=== PATIENT | male | born 1940 | race Caucasian/White ===

== ENCOUNTER 2016-11-10 07:59 | Outpatient (CLI) ==
[2013-04-11 01:57] VITALS: TEMP 98.6
[2016-10-01 10:11] VITALS: BMI 27.8
== END 2016-11-10 08:00 | disposition home or self-care (01) ==
LOC: WOUND 07:59
PROVIDERS: ATTEND Nurse Practitioner Family
DX: L97.822 Non-pressure chronic ulcer of other part of left lower leg with fat layer exposed (principal); I87.332 Chronic venous hypertension (idiopathic) with ulcer and inflammation of left lower extremity; I10 Essential (primary) hypertension; E11.65 Type 2 diabetes mellitus with hyperglycemia; I50.9 Heart failure, unspecified; I87.2 Venous insufficiency (chronic) (peripheral)
CPT/HCPCS: 99211

== ENCOUNTER 2016-12-06 21:30 | Inpatient (IN) ==
[2016-12-06] MEDS ORDERED: DECADRON 4 MG/ML SDV IM STA (21:44)
[2016-12-06] MEDS ORDERED: DUONEB NEB STA (21:45)
[2016-12-06] MEDS ORDERED: XOPENEX 1.25 MG NEB STA (21:45)
[2016-12-06 21:59] LABS: BASOPHILS # (AUTO) 0.1 K/uL (0-0.2); BASOPHILS % (AUTO) 0.7 % (0.0-3.0); EOSINOPHILS # (AUTO) 0.3 K/ul (0.0-0.7); EOSINOPHILS % (AUTO) 3.8 % (0.0-7.0); HEMATOCRIT 45.3 % (42.0-52.0); HEMOGLOBIN 14.6 g/dl (14.0-18.0); IMMATURE GRANULOCYTE % (AUTO) 0.3 % (0.0-5.0); LYMPHOCYTES # (AUTO) 1.5 K/uL (0.60-3.4); LYMPHOCYTES % (AUTO) 21.9 (10.0-50.0); MEAN CORPUSCULAR HEMOGLOBIN 28.8 pg (27.0-31.0); MEAN CORPUSCULAR HGB CONC 32.2 (31.8-35.4); MEAN CORPUSCULAR VOLUME 89.3 fl (80.0-94.0); MONOCYTES # (AUTO) 0.6 K/uL (0.4-2.0); MONOCYTES % (AUTO) 8.6 (0-10); NEUTROPHILS # (AUTO) 4.4 K/ul (2.0-6.9); NEUTROPHILS % (AUTO) 64.7; PLATELET COUNT 224 10^3/uL (140-440); RED BLOOD COUNT 5.07 10^6/ul (4.70-6.10); WHITE BLOOD COUNT 6.85 K/ul (4.2-10.2)
[2016-12-06 22:20] LABS: ABG BASE EXCESS 11 (-2.0-2.0); ABG PCO2 60.1 mmHg (35-45)
[2016-12-06 22:21] LABS: ABG HCO3 36.4 (22.0-26.0); ABG TCO2 38 (22.0-28.0)
[2016-12-06] MEDS ORDERED: ALBUTEROL 0.042% NEB NEB STA (22:29)
[2016-12-06 22:44] LABS: ALBUMIN 3.6 g/dL (3.4-5.0); ALBUMIN/GLOBULIN RATIO 1.29; BILIRUBIN,TOTAL 0.46 mg/dL (0.00-1.20); BUN/CREATININE RATIO 11.36; CALCIUM 8.7 mg/dL (8.2-10.2); CREATININE 1.32 mg/dL (0.60-1.10); TOTAL PROTEIN 6.4 g/dL (5.8-8.1)
--- NOTE | 2016-12-06 22:44 | CT ---
EXAM: CT of the chest without contrast. HISTORY: Shortness of breath. Dyspnea. PROCEDURE: Contiguous axial CT images of the chest without contrast with coronal and sagittal refor mats. FINDINGS: The heart is enlarged. The thoracic aorta is within normal limits in diameter. There ar e calcified mediastinal and hilar lymph nodes. There is consolidation in the right lower lobe. Ther e is a multi lead automatic implantable cardiac defibrillator. There are degenerative changes in th e spine. Impression: Right lower lobe consolidation consistent with pneumonia. Cardiomegaly.
--- NOTE | 2016-12-06 23:37 | ED.PDOC ---
General ED Provider: Dr. KIARA HOWE-ER Chief Complaint: Respiratory Complaint Stated Complaint: feliz been cleaning out the grain bins today--im coughing and sob Time Seen by Physician: 21:35 Mode of Arrival: Wheelchair Information Source: Patient Exam Limitations: No limitations Primary Care Provider: FUNMI CISSE Nursing and Triage Documentation Reviewed and Agree: Yes Respiratory Complaint Exam - Shortness of Air Complaint/Exam Onset/Duration: several hours Symptoms Are: Still present Timing: Constant Initial Severity: Mild Current Severity: Mild Character: Reports: Dyspnea at rest, Dyspnea on exertion Aggravating: Reports: Deep breaths Alleviating: Reports: Bronchodilators Associated Signs and Symptoms: Reports: Cough, Wheezing, Labored breathing. Denies: Chest pain with cough, Chest pain, Fever, Chills, Diaphoresis, Nasal congestion, Dizziness, Calf pain, Calf swelling, Edema, Rapid breathing, Decreased intake Related History: Reports: Similar episode History of Healthcare-Acquired Pneumonia: No Cardiac Risk Factors: Reports: Diabetes, Hypertension Pseudomonas Risk Factors: Reports: Chronic Lung Disease Tuberculosis Risk Factors: Reports: Chronic Resp. Faliure Home Oxygen Use: Yes Recent Stress Test: No Recent Echo/LV Function: No Respiratory Distress: Mild Stridor Present: No Tracheal Deviation: No Subcutaneous Emphysema: No Accessory Muscle Use: No Retractions: Not Present Diminished Breath Sounds: Yes Prolonged Expiratory Phase: No Unable to Speak Full Sentences: No Fatigue: Yes Leg Swelling: No Ranjith's Sign Present: No Grunting Respirations: No Kussmaul Respirations: No Differential Diagnoses: COPD Exacerbation Quality Indicator For Non-Traumatic Chest Pain/Syncope: EKG Performed Review of Systems - Review Of Systems Constitutional: Reports: No symptoms Eyes: Reports: No symptoms Ears, Nose, Mouth, Throat: Reports: No symptoms Respiratory: Reports: Cough, Short of air Cardiac: Reports: No symptoms GI: Reports: No symptoms : Reports: No symptoms Musculoskeletal: Reports: No symptoms Skin: Reports: No symptoms Neurological: Reports: No symptoms Endocrine: Reports: No symptoms Hematologic/Lymphatic: Reports: No symptoms All Other Systems: Reviewed and Negative Past Medical History - Past Medical History Previously Healthy: Yes Endocrine: Reports: DM 1 (MEDS), Hypothyroid, Other (GOUT-MEDS) Cardiovascular: Reports: CAD, Hypertension, CHF (MEDS), A-Fib Respiratory: Reports: COPD (MEDS) Hematological: Reports: None Gastrointestinal: Reports: None Genitourinary: Reports: Other (PROSTATISM) Neuro/Psych: Reports: Anxiety Musculoskeletal: Reports: None Cancer: Reports: None Other Pertinent Past Medical History: HERNIA,BACK,NECK,STOMACH defib htn dm copd cad - Surgical History General Surgical History: Reports: Pacemaker (DEFIB), Orthopedic (NECK), Back Surgery, Other (hernia repair,STOMACH SX AAA, prostate ercp scheduled for reevaluation), Unknown (stomach surgery) - Family History Family History: Reports: None - Social History Smoking Status: Current every day smoker, Heavy tobacco smoker Hx Substance Use: No Alcohol Screening: None Lives: With family - Immunizations Tetanus Shot up to Date: Yes Physical Exam - Physical Exam Appearance: Well-appearing, No pain distress, Well-nourished Eyes: SHLOMO ENT: Ears normal, Nose normal, Oropharynx normal Neck: Supple Respiratory: Rhonchi, Wheezes Cardiovascular: RRR, Pulses normal, No rub, No murmur GI/: Soft, Nontender, No masses, Bowel sounds normal, No Organomegaly Musculoskeletal: Normal strength, ROM intact, No edema, No calf tenderness Skin: Warm, Dry, Normal color Neurological: Sensation intact, Motor intact, Reflexes intact, Cranial nerves intact, Alert, Oriented Psychiatric: Affect appropriate Interpretation - Radiology Interpretation Radiology Interpretation By: Radiologist Radiology Results: Positive Exam Interpreted: CT Scan - EKG Interpretation Time of EKG #1: 23:37 Rate: Normal Rhythm: Sinus Ectopy: None [place]: NL ST Segment: Normal Interpretation: nsr Re-Evaluation - Re-Evaluation Time of Re-Evaluation: 23:37 Status: Improved Vital Signs Stable: Yes Pain Level: 0 Appearance: NAD Lungs: Clear Skin: Warm and Dry Neuro: Alert and Oriented X3 CV: RRR Critical Care Note - Critical Care Note Total Time (mins): 0 Course - Course Hematology/Chemistry: 12/06/16 21:50 12/06/16 21:50 Orders, Labs, Meds: Lab Review 12/06/16 12/06/16 21:43 21:50 WBC 6.85 RBC 5.07 Hgb 14.6 Hct 45.3 MCV 89.3 MCH 28.8 MCHC 32.2 RDW Coeff of Christine 13.6 Plt Count 224 Immature Gran % (Auto) 0.3 Neut % (Auto) 64.7 Lymph % (Auto) 21.9 [place] % (Auto) 8.6 Eos % (Auto) 3.8 Baso % (Auto) 0.7 Immature Gran # (Auto) 0.0 Neut # 4.4 Lymph # 1.5 [place] # 0.6 Eos # 0.3 Baso # 0.1 D-Dimer 0.67 Puncture Site Lb O2 Saturation 89.0 L ABG pH 7.390 ABG pCO2 60.1 H ABG pO2 60.0 L ABG HCO3 36.4 H ABG Total CO2 38 H ABG Base Excess 11 H Arley Test + O2 Delivery Device Nc Oxygen Liter Flow 2.50 FiO2 % 30.0 Sodium 143 Potassium 4.0 Chloride 101 Carbon Dioxide 34 H Anion Gap 12.0 BUN 15 Creatinine 1.32 H Estimated GFR (MDRD) 53.00 BUN/Creatinine Ratio 11.36 Glucose 258 H Calcium 8.7 Total Bilirubin 0.46 AST 14 L ALT 14 Alkaline Phosphatase 84 Total Creatine Kinase 112 Troponin I < 0.0100 B-Natriuretic Peptide < 10 Total Protein 6.4 Albumin 3.6 Globulin 2.8 Albumin/Globulin Ratio 1.29 Digoxin 2.17 H* Orders Category Date Time Status ABG DRAW REQUEST Stat CARDIO 12/06/16 21:44 Completed EKG-(ED ONLY) Stat CARDIO 12/06/16 21:43 Completed NEBULIZER TREATMENT Stat CARDIO 12/06/16 21:45 Completed NEBULIZER TREATMENT Stat CARDIO 12/06/16 22:30 Completed ABG Stat LAB 12/06/16 21:43 Completed BNP [B-TYPE NATRIURETIC PEPTIDE] Stat LAB 12/06/16 21:50 Completed CBC W/ AUTO DIFF Stat LAB 12/06/16 21:50 Completed COMPREHENSIVE METABOLIC PANEL Stat LAB 12/06/16 21:50 Completed CREATINE KINASE Stat LAB 12/06/16 21:50 Completed D-DIMER Stat LAB 12/06/16 21:50 Completed DIGOXIN Stat LAB 12/06/16 21:50 Completed TROPONIN I Stat LAB 12/06/16 21:50 Completed Albuterol Sulfate 0.042% Neb [Albuterol 0.042% Neb] MEDS 12/06/16 22:29 Discontinued 1 vial NEB ONCE STA Dexamethasone 4 mg/ml Inj [Decadron 4 mg/ml Sdv] MEDS 12/06/16 21:44 Discontinued 8 mg IM ONCE STA Ipratropium/Albuterol Neb [Duoneb] MEDS 12/06/16 21:45 Discontinued 1 vial NEB ONCE STA Levalbuterol HCl [Xopenex 1.25 mg] MEDS 12/06/16 21:45 Discontinued 1 vial NEB ONCE STA CT CHEST W/O CONTRAST Stat RADS 12/06/16 21:45 Completed Medications Discontinued Medications Generic Name Dose Route Start Last Admin Trade Name Carlee PRN Reason Stop Dose Admin Albuterol Sulfate 1 vial 12/06/16 22:29 12/06/16 22:50 Albuterol 0.042% Neb [facility] [place] 12/06/16 22:30 1 vial ONCE STA Administration Albuterol/Ipratropium 1 vial 12/06/16 21:45 12/06/16 22:03 Duoneb NEB 12/06/16 21:46 1 vial ONCE STA Administration Dexamethasone Sodium Phosphate 8 mg 12/06/16 21:44 12/06/16 22:05 Decadron 4 Mg/Ml Sdv IM 12/06/16 21:45 8 mg ONCE STA Administration Levalbuterol HCl 1 vial 12/06/16 21:45 12/06/16 22:13 Xopenex 1.25 Mg NEB 12/06/16 21:46 1 vial ONCE STA Administration Vital Signs: Temp Pulse Resp BP Pulse Ox 12/06/16 21:31 98.3 F 64 24 156/81 H 85 L Departure - Departure Time of Disposition: 23:37 Disposition: HOME SELF-CARE Discharge Problem: Pneumonia Qualifiers: Pneumonia type: due to unspecified organism Laterality: right Lung location: lower lobe of lung Qualifier Code: (J18.9) Pneumonia, unspecified organism Instructions: Community Acquired Pneumonia (ED) Condition: Good Pt referred to PMD for follow-up: Yes Allergies/Adverse Reactions: Allergies Penicillins Adverse Reaction (Intermediate, Verified 10/01/16 10:05) UNKNOWN Home Medications: Ambulatory Orders Allopurinol [Zyloprim] 300 mg PO DAILY 04/11/13 Amiodarone HCl [Cordarone] 200 mg PO DAILY 04/11/13 Aspirin [Aspirin Chewable] 81 mg PO DAILY 04/11/13 Carvedilol [Coreg] 6.25 mg PO BID 04/11/13 Digoxin [Lanoxin] 125 mcg PO DAILY 04/11/13 Furosemide [Lasix Tab] 20 mg PO BID 04/11/13 Gabapentin [Neurontin] 300 mg PO TID 04/11/13 Insulin Glargine,Hum.rec.anlog [Lantus] 15 units PO BEDTIME 04/11/13 Insulin Regular, Human [Humulin R] 1 units SUBCUT QID 04/11/13 Nitroglycerin [Nitrostat] 0.4 mg SL PRN PRN 04/11/13 Potassium Chloride [K-Dur] 20 meq PO DAILY 04/11/13 Albuterol Sulfate [Proair Hfa] 2 inh PO Q4-6H PRN 08/11/13 Clonidine HCl 0.1 mg PO BEDTIME 04/28/15 Levothyroxine Sodium [Synthroid] 75 mcg PO QDAC 04/28/15 Glipizide 5 mg PO BID 02/05/16 Lisinopril 5 mg PO DAILY 03/09/16 Mirabegron [Myrbetriq] 25 mg PO DAILY 03/09/16 Albuterol Sulfate 0.083% Neb [Albuterol 0.083% Neb] 1 vial NEB RTQ6H PRN Albuterol Sulfate 2.5 mg IH ONCE PRN 11/18/16 Albuterol Sulfate [Proair Hfa] 8.5 gm IH PRN 11/18/16 Allopurinol 300 mg PO DAILY 11/18/16 Amiodarone HCl 200 mg PO DAILY 11/18/16 Aspirin [Aspir 81] 81 mg PO DAILY 11/18/16 Carvedilol 6.25 mg PO BID 11/18/16 Clonidine HCl [Catapres] 0.1 mg PO BEDTIME PRN 11/18/16 Digoxin 125 mcg PO DAILY 11/18/16 Furosemide [Lasix] 20 mg PO BID 11/18/16 Gabapentin 300 mg PO DAILY 11/18/16 Glipizide 5 mg PO BID 11/18/16 Insulin Glargine,Hum.rec.anlog [Lantus] 100 unit SQ DIRECTED vial 11/18/16 Insulin Regular, Human [Humulin R] 100 unit IJ PRN vial 11/18/16 Levothyroxine Sodium [Synthroid] 75 mcg PO DAILY 11/18/16 Lisinopril 5 mg PO DAILY 11/18/16 Mirabegron [Myrbetriq] 25 mg PO DAILY 11/18/16 Nitroglycerin 0.3 mg SL PRN 11/18/16 Potassium Chloride 20 meq PO DAILY 11/18/16 Pramipexole Di-HCl [Pramipexole Er] 0.75 mg PO DAILY 11/18/16 Disposition Discussed With: Patient, Family
[2016-12-06] MEDS ORDERED: LEVAQUIN 250 MG in PREMIX 50 ML D5W 1 BAG IV SCH (23:45)
[2016-12-07 00:56] VITALS: BMI 27.6
[2016-12-07] MEDS ORDERED: LEVAQUIN 50 ML IV ONE (01:09)
[2016-12-07] MEDS: SODIUM CHLORIDE 1,000 ML IV SCH ×2 (01:57→15:25)
[2016-12-07] MEDS: DUONEB NEB SCH ×6 (02:20→22:35)
[2016-12-07 04:55] LABS: BASOPHILS % (AUTO) 0.4 % (0.0-3.0); HEMATOCRIT 46.8 % (42.0-52.0); HEMOGLOBIN 15.1 g/dl (14.0-18.0); IMMATURE GRANULOCYTE % (AUTO) 0.9 % (0.0-5.0); LYMPHOCYTES # (AUTO) 0.4 K/uL (0.60-3.4); LYMPHOCYTES % (AUTO) 7.4 (10.0-50.0); MEAN CORPUSCULAR HEMOGLOBIN 29.2 pg (27.0-31.0); MEAN CORPUSCULAR HGB CONC 32.3 (31.8-35.4); MEAN CORPUSCULAR VOLUME 90.5 fl (80.0-94.0); MONOCYTES # (AUTO) 0.1 K/uL (0.4-2.0); MONOCYTES % (AUTO) 1.1 (0-10); NEUTROPHILS # (AUTO) 4.9 K/ul (2.0-6.9); NEUTROPHILS % (AUTO) 90.2; PLATELET COUNT 212 10^3/uL (140-440); RED BLOOD COUNT 5.17 10^6/ul (4.70-6.10); WHITE BLOOD COUNT 5.42 K/ul (4.2-10.2)
[2016-12-07 05:28] LABS: ALBUMIN 3.5 g/dL (3.4-5.0); ALBUMIN/GLOBULIN RATIO 1.13; ANION GAP 12.3; BILIRUBIN,TOTAL 0.44 mg/dL (0.00-1.20); BUN/CREATININE RATIO 11.36; CALCIUM 8.7 mg/dL (8.2-10.2); CREATININE 1.32 mg/dL (0.60-1.10); POTASSIUM 4.3 mmol/L (3.5-5.1); TOTAL PROTEIN 6.6 g/dL (5.8-8.1)
[2016-12-07] MEDS: HUMULIN R SUBCUT PRN ×4 (05:45→20:35)
[2016-12-07] MEDS ORDERED: NITROSTAT SL PRN (06:05)
[2016-12-07] MEDS ORDERED: CATAPRES PO PRN (06:05)
[2016-12-07] MEDS ORDERED: HUMULIN R SUBCUT SCH (06:15)
[2016-12-07] MEDS: SYNTHROID PO SCH (06:23)
[2016-12-07] MEDS ORDERED: HUMULIN R SUBCUT PRN (07:44)
[2016-12-07] MEDS: SOLU-MEDROL 40 MG IVP SCH ×2 (08:46→20:14)
[2016-12-07] MEDS: ASPIRIN CHEWABLE PO SCH (08:47)
[2016-12-07] MEDS: CORDARONE PO SCH (08:47)
[2016-12-07] MEDS: GLUCOTROL PO SCH ×2 (08:48→18:28)
[2016-12-07] MEDS: COREG PO SCH ×2 (08:48→20:12)
[2016-12-07] MEDS: K-DUR PO SCH (08:49)
[2016-12-07] MEDS: LOVENOX SUBCUT SCH (08:49)
[2016-12-07] MEDS: LASIX TAB PO SCH ×2 (08:49→18:28)
[2016-12-07] MEDS: MIRAPEX PO SCH (08:50)
[2016-12-07] MEDS: MYRBETRIQ PO SCH (08:50)
[2016-12-07] MEDS: NEURONTIN PO SCH ×3 (08:52→20:12)
[2016-12-07] MEDS: ZYLOPRIM PO SCH (08:53)
[2016-12-07] MEDS: ZESTRIL PO SCH (08:53)
[2016-12-07] MEDS ORDERED: PRAMIPEXOLE DI HCL 0.75 MG PO SCH (09:00)
[2016-12-07 15:10] LABS: TROPONIN I 0.04 ng/ml (0.0000-0.4000)
[2016-12-07 15:11] LABS: DIGOXIN 0.69 ng/mL (1.00-2.00)
[2016-12-07] MEDS: LANTUS SUBCUT SCH (20:16)
[2016-12-07] MEDS: LEVAQUIN 250 MG in PREMIX 50 ML D5W 1 BAG IV SCH (20:18)
[2016-12-08] MEDS: DUONEB NEB SCH ×6 (02:13→21:22)
[2016-12-08 04:54] LABS: BASOPHILS % (AUTO) 0.2 % (0.0-3.0); HEMATOCRIT 43.9 % (42.0-52.0); HEMOGLOBIN 14.2 g/dl (14.0-18.0); IMMATURE GRANULOCYTE % (AUTO) 0.8 % (0.0-5.0); LYMPHOCYTES # (AUTO) 0.7 K/uL (0.60-3.4); LYMPHOCYTES % (AUTO) 5.7 (10.0-50.0); MEAN CORPUSCULAR HEMOGLOBIN 28.9 pg (27.0-31.0); MEAN CORPUSCULAR HGB CONC 32.3 (31.8-35.4); MEAN CORPUSCULAR VOLUME 89.2 fl (80.0-94.0); MONOCYTES # (AUTO) 0.3 K/uL (0.4-2.0); MONOCYTES % (AUTO) 2.1 (0-10); NEUTROPHILS # (AUTO) 11.9 K/ul (2.0-6.9); NEUTROPHILS % (AUTO) 91.2; PLATELET COUNT 235 10^3/uL (140-440); RED BLOOD COUNT 4.92 10^6/ul (4.70-6.10); WHITE BLOOD COUNT 13.08 K/ul (4.2-10.2)
[2016-12-08 05:21] LABS: ALBUMIN 3.2 g/dL (3.4-5.0); ALBUMIN/GLOBULIN RATIO 1.07; ANION GAP 11.5; BILIRUBIN,TOTAL 0.41 mg/dL (0.00-1.20); BUN/CREATININE RATIO 20.16; CALCIUM 8.8 mg/dL (8.2-10.2); CREATININE 1.19 mg/dL (0.60-1.10); DIGOXIN 0.73 ng/mL (1.00-2.00); POTASSIUM 4.5 mmol/L (3.5-5.1); TOTAL PROTEIN 6.2 g/dL (5.8-8.1)
[2016-12-08] MEDS: LASIX TAB PO SCH ×2 (05:34→17:35)
[2016-12-08] MEDS: SYNTHROID PO SCH (05:35)
[2016-12-08] MEDS: GLUCOTROL PO SCH ×2 (05:35→17:35)
[2016-12-08] MEDS: HUMULIN R SUBCUT PRN ×4 (05:43→20:44)
[2016-12-08] MEDS: ASPIRIN CHEWABLE PO SCH (08:38)
[2016-12-08] MEDS: MYRBETRIQ PO SCH (08:38)
[2016-12-08] MEDS: ZESTRIL PO SCH (08:39)
[2016-12-08] MEDS: NEURONTIN PO SCH ×3 (08:39→20:43)
[2016-12-08] MEDS: COREG PO SCH ×2 (08:39→17:35)
[2016-12-08] MEDS: K-DUR PO SCH (08:39)
[2016-12-08] MEDS: ZYLOPRIM PO SCH (08:39)
[2016-12-08] MEDS: CORDARONE PO SCH (08:39)
[2016-12-08] MEDS: MIRAPEX PO SCH (08:39)
[2016-12-08] MEDS: LOVENOX SUBCUT SCH (08:40)
[2016-12-08] MEDS: SOLU-MEDROL 40 MG IVP SCH (09:08)
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
[2016-12-08] MEDS: LEVAQUIN 250 MG in PREMIX 50 ML D5W 1 BAG IV SCH (20:42)
[2016-12-08] MEDS: LANTUS SUBCUT SCH (20:43)
[2016-12-09] MEDS: DUONEB NEB SCH ×3 (01:18→10:02)
[2016-12-09] MEDS: LASIX TAB PO SCH (05:34)
[2016-12-09] MEDS: SYNTHROID PO SCH (05:34)
[2016-12-09 06:46] LABS: BASOPHILS % (AUTO) 0.2 % (0.0-3.0); HEMATOCRIT 43.9 % (42.0-52.0); HEMOGLOBIN 14.5 g/dl (14.0-18.0); IMMATURE GRANULOCYTE % (AUTO) 0.8 % (0.0-5.0); LYMPHOCYTES # (AUTO) 1.3 K/uL (0.60-3.4); LYMPHOCYTES % (AUTO) 9.8 (10.0-50.0); MEAN CORPUSCULAR VOLUME 87.8 fl (80.0-94.0); MONOCYTES # (AUTO) 0.6 K/uL (0.4-2.0); MONOCYTES % (AUTO) 4.9 (0-10); NEUTROPHILS % (AUTO) 84.3; PLATELET COUNT 230 10^3/uL (140-440); WHITE BLOOD COUNT 13.05 K/ul (4.2-10.2)
[2016-12-09] MEDS: HUMULIN R SUBCUT PRN ×2 (06:46→11:40)
[2016-12-09 07:14] LABS: ALBUMIN 3.3 g/dL (3.4-5.0); ALBUMIN/GLOBULIN RATIO 1.22; ANION GAP 10.9; BILIRUBIN,TOTAL 0.5 mg/dL (0.00-1.20); BUN/CREATININE RATIO 23.96; CREATININE 1.21 mg/dL (0.60-1.10); POTASSIUM 3.9 mmol/L (3.5-5.1)
[2016-12-09] MEDS ORDERED: PREDNISONE PO SCH (08:00)
[2016-12-09] MEDS: LOVENOX SUBCUT SCH (08:23)
[2016-12-09] MEDS: ZESTRIL PO SCH (08:24)
[2016-12-09] MEDS: MIRAPEX PO SCH (08:24)
[2016-12-09] MEDS: COREG PO SCH (08:24)
[2016-12-09] MEDS: ASPIRIN CHEWABLE PO SCH (08:24)
[2016-12-09] MEDS: CORDARONE PO SCH (08:24)
[2016-12-09] MEDS: GLUCOTROL PO SCH (08:24)
[2016-12-09] MEDS: ZYLOPRIM PO SCH (08:24)
[2016-12-09] MEDS: MYRBETRIQ PO SCH (08:24)
[2016-12-09] MEDS: NEURONTIN PO SCH ×2 (08:25→16:43)
[2016-12-09] MEDS: K-DUR PO SCH (08:25)
[2016-12-09 10:11] VITALS: BP 145/84; TEMP 97.4
--- NOTE | 2016-12-09 11:09 | PN ---
DATE OF VISIT: 12/08/16 SUBJECTIVE: Mr. Leonard has chronic systolic and diastolic congestive heart failure and always potential for acute exacerbation, COPD and the same. He was exposed to grain bin dust; he became more short of breath than his usual baseline (he also has chronic respiratory failure on oxygen for around the clock use). He presented to the ER where on CT was found to have an infiltrate in the right lung. He was admitted for IV antibiotics, nebulized bronchodilators, IV steroids (which exacerbates his sugar). When I saw him the first day, yesterday , he was feeling a lot better. He continues to improve with less cough. No shortness of breath or wheeze. He continues to have a good appetite, slept well last night and is expecting to go home tomorrow. He denies chest pain or leg edema. OBJECTIVE: V/S: Temperature 98.1, pulse 68, BP 149/76; previously 162/75, respirations 20, 02 sat 93% on 3L; all of these patterns have been in this range. GENERAL: No obvious distress. CHEST: Diminished but no active wheeze or dullness. CARDIOVASCULAR: S1, S2 distant without murmur and no peripheral edema. LABS/X-RAYS: White count today 13, up from 5; with steroids. His chemistries show stable elevated bicarb of 32, BUN 24 compared to 15, creatinine 1.19 compared to 1.32 and GFR is actually improved from 59 to 53. ASSESSMENT: # RIGHT LOWER LOBE PNEUMONIA - COMMUNITY EXPOSED # SHORTNESS OF BREATH, A COMBINATION OF ALL PULMONARY AND CARDIAC ISSUES # CHRONIC RESPIRATORY FAILURE WITH POSSIBLE ACUTE WORSENING # COPD # COPD EXACERBATION # CHF - DIASTOLIC AND SYSTOLIC CHRONIC WITH POSSIBLE MILD ACUTE EXACERBATION # STEROID INDUCED HYPERGLYCEMIA # TYPE 2 DIABETES - GENERALLY NOT CONTROLLED PLANS: 1. Wean from IV to p.o. steroid. Continue other meds for now. 2. Labs reviewed - note above - continue daily. 3. Watch closely to see if he tolerates this wean. 4. He wants to go home tomorrow - discharge planning at this point would be to his home considering however he does live alone. [facility]
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
== END 2016-12-09 15:45 | disposition home or self-care (01) | DRG 193 ==
LOC: ED 21:30 → MEDSURG B 23:39
PROVIDERS: ADMIT Family Medicine; ATTEND Family Medicine
DX: J18.9 Pneumonia, unspecified organism (principal); J96.20 Acute and chronic respiratory failure, unspecified whether with hypoxia or hypercapnia; I50.42 Chronic combined systolic (congestive) and diastolic (congestive) heart failure; I51.7 Cardiomegaly; I10 Essential (primary) hypertension; I50.9 Heart failure, unspecified; J44.9 Chronic obstructive pulmonary disease, unspecified; E11.65 Type 2 diabetes mellitus with hyperglycemia; R79.89 Other specified abnormal findings of blood chemistry; F17.210 Nicotine dependence, cigarettes, uncomplicated; E09.65 Drug or chemical induced diabetes mellitus with hyperglycemia; T38.0X5A Adverse effect of glucocorticoids and synthetic analogues, initial encounter; Y92.239 Unspecified place in hospital as the place of occurrence of the external cause; Z95.810 Presence of automatic (implantable) cardiac defibrillator; Z79.4 Long term (current) use of insulin; Z79.899 Other long term (current) drug therapy; Z57.2 Occupational exposure to dust
CPT/HCPCS: 36415; 80053; 80162; 82550; 82803; 82962; 83880; 84484; 85025; 85379; 87040; 93005; 93010; 94640; 94761; 96372; 99284

== ENCOUNTER 2017-03-21 00:57 | Emergency (ER) ==
[2017-03-21] MEDS ORDERED: ZOFRAN 4 MG/2 ML IM STA (00:58)
[2017-03-21] MEDS ORDERED: DECADRON 4 MG/ML SDV IM STA (00:58)
[2017-03-21] MEDS ORDERED: MORPHINE 2 MG/ML SYRINGE IM STA (00:58)
[2017-03-21 01:19] VITALS: TEMP 98.8; BMI 28.5
--- NOTE | 2017-03-21 02:00 | DI ---
EXAM: Right knee four views HISTORY: Pain COMPARISON: None. FINDINGS: There is no evidence of fracture or joint effusion. The joint spaces are well maintained . The surrounding soft tissues are unremarkable. IMPRESSION: No acute findings.
--- NOTE | 2017-03-21 04:59 | ED.PDOC ---
General ED Provider: Dr. KIARA HOWE-ER Chief Complaint: Knee Pain/Injury Stated Complaint: i got my other knee injected but now it hurts beghind the other knee Time Seen by Physician: 01:10 Mode of Arrival: Wheelchair Information Source: Patient Exam Limitations: No limitations Primary Care Provider: FUNMI IBARRA Nursing and Triage Documentation Reviewed and Agree: Yes Musculoskeletal Complaint Exam - Lower Extremity Complaint/Exam Location of Pain: Reports: Right, Leg Mechanism of Injury: Reports: No known trauma Onset/Duration: several hours Symptoms Are: Still present Onset of Pain: Reports: Hours Initial Severity: Mild Current Severity: Mild Location: Denies: Discrete (posterior right knee) Character: Reports: Dull, Aching, Stiffness Alleviating: Reports: None Aggravating: Reports: Movement, Weight bearing, Prolonged standing Able to Bear Weight: Yes Associated Signs and Symptoms: Denies: Swelling, Redness, Bruising, Fever, Weakness, Numbness, Tingling Septic Arthritis Risk Factors: Reports: None Lower Extremity Findings: Present: Tenderness, Limited range of motion NV Bundle Intact Distal to Injury: Yes Compartment Syndrome Risk Factors: Present: Pain. Absent: Paralysis, Pallor, Pulselessness, Paresthesias Ranjith's Sign Present: No Differential Diagnoses: DVT, Strain, Sprain Review of Systems - Review Of Systems Constitutional: Reports: No symptoms Eyes: Reports: No symptoms Ears, Nose, Mouth, Throat: Reports: No symptoms Respiratory: Reports: No symptoms Cardiac: Reports: No symptoms GI: Reports: No symptoms : Reports: No symptoms Musculoskeletal: Reports: Joint pain, Muscle pain Skin: Reports: No symptoms Neurological: Reports: No symptoms Endocrine: Reports: No symptoms Hematologic/Lymphatic: Reports: No symptoms All Other Systems: Reviewed and Negative Past Medical History - Past Medical History Previously Healthy: Yes Endocrine: Reports: DM 1 (MEDS), Hypothyroid, Other (GOUT-MEDS) Cardiovascular: Reports: CAD, Hypertension, CHF (MEDS), A-Fib Respiratory: Reports: COPD (MEDS) Hematological: Reports: None Gastrointestinal: Reports: None Genitourinary: Reports: Other (PROSTATISM) Neuro/Psych: Reports: Anxiety Musculoskeletal: Reports: None Cancer: Reports: None Other Pertinent Past Medical History: HERNIA,BACK,NECK,STOMACH defib htn dm copd cad - Surgical History General Surgical History: Reports: Pacemaker (DEFIB), Orthopedic (NECK), Back Surgery, Other (hernia repair,STOMACH SX AAA, prostate ercp scheduled for reevaluation), Unknown (stomach surgery) - Family History Family History: Reports: None - Social History Smoking Status: Current every day smoker, Heavy tobacco smoker Hx Substance Use: No Alcohol Screening: Occasionally Lives: With family - Immunizations Tetanus Shot up to Date: (UNKNOWN) Physical Exam - Physical Exam Appearance: Well-appearing, No pain distress, Well-nourished Pain Distress: Mild Eyes: SHLOMO, EOMI, Conjunctiva clear ENT: Ears normal, Nose normal, Oropharynx normal Neck: Supple Respiratory: Airway patent, Breath sounds clear, Breath sounds equal, Respirations nonlabored Cardiovascular: RRR, Pulses normal, No rub, No murmur GI/: Soft, Nontender, No masses, Bowel sounds normal, No Organomegaly Musculoskeletal: Limited ROM Skin: Warm, Dry, Normal color Neurological: Sensation intact, Motor intact, Reflexes intact, Cranial nerves intact, Alert, Oriented Psychiatric: Affect appropriate Interpretation - Radiology Interpretation Radiology Interpretation By: Radiologist Radiology Results: Negative Critical Care Note - Critical Care Note Total Time (mins): 0 Course - Course Orders, Labs, Meds: Orders Category Date Time Status Dexamethasone 4 mg/ml Inj [Decadron 4 mg/ml Sdv] MEDS 03/21/17 00:58 Discontinued 8 mg IM ONCE STA Morphine Sulfate [Morphine 2 mg/ml Syringe] MEDS 03/21/17 00:58 Discontinued 2 mg IM ONCE STA Ondansetron HCl/Pf [Zofran 4 mg/2 ml] MEDS 03/21/17 00:58 Discontinued 4 mg IM ONCE STA KNEE, RIGHT 4 VIEWS Stat RADS 03/21/17 00:59 Completed ULTRASOUND VENOUS SCAN RT. LEG [U/S VENOUS SCAN RT. LEG RADS 03/21/17 07:00 Ordered ] Timed Medications Discontinued Medications Generic Name Dose Route Start Last Admin Trade Name Freq PRN Reason Stop Dose Admin Dexamethasone Sodium Phosphate 8 mg 03/21/17 00:58 03/21/17 01:52 Decadron 4 Mg/Ml Sdv IM 03/21/17 00:59 8 mg ONCE STA Administration Morphine Sulfate 2 mg 03/21/17 00:58 03/21/17 01:52 Morphine 2 Mg/Ml Syringe IM 03/21/17 00:59 2 mg ONCE STA Administration Ondansetron HCl 4 mg 03/21/17 00:58 03/21/17 01:52 Zofran 4 Mg/2 Ml IM 03/21/17 00:59 4 mg ONCE STA Administration Vital Signs: Temp Pulse Resp BP Pulse Ox 03/21/17 02:26 60 24 121/66 93 L 03/21/17 01:05 98.8 F 61 28 H 98/53 L 93 L Departure - Departure Time of Disposition: 06:46 Disposition: HOME SELF-CARE Discharge Problem: Knee pain Instructions: Knee Pain (ED) Condition: Good Pt referred to PMD for follow-up: Yes Additional Instructions: norco 5mg q 6hrs prn pain#10--f.u with dr ibarra this week Allergies/Adverse Reactions: Allergies Penicillins Adverse Reaction (Intermediate, Verified 03/21/17 01:20) UNKNOWN Home Medications: Ambulatory Orders Allopurinol [Zyloprim] 300 mg PO BEDTIME 04/11/13 Amiodarone HCl [Cordarone] 200 mg PO DAILY 04/11/13 Aspirin [Aspirin Chewable] 81 mg PO DAILY 04/11/13 Carvedilol [Coreg] 6.25 mg PO BID 04/11/13 Digoxin [Lanoxin] 125 mcg PO DAILY 04/11/13 Furosemide [Lasix Tab] 40 mg PO BID 04/11/13 Gabapentin [Neurontin] 300 mg PO BID 04/11/13 Insulin Glargine,Hum.rec.anlog [Lantus] 15 units PO BEDTIME 04/11/13 Nitroglycerin [Nitrostat] 0.4 mg SL PRN PRN 04/11/13 Potassium Chloride [K-Dur] 20 meq PO BEDTIME 04/11/13 Albuterol Sulfate [Proair Hfa] 2 puff INH Q4-6H PRN 08/11/13 Levothyroxine Sodium [Synthroid] 75 mcg PO QDAC 04/28/15 Glipizide 5 mg PO BID 02/05/16 Lisinopril 5 mg PO DAILY 03/09/16 Clonidine HCl [Catapres] 0.1 mg PO BEDTIME PRN 11/18/16 Mirabegron [Myrbetriq] 25 mg PO DAILY 11/18/16 Pramipexole Di-HCl [Pramipexole ER] 0.75 mg PO BID 11/18/16 Albuterol Sulfate 0.083% Neb [Albuterol 0.083% Neb] 1 vial NEB Q6H PRN 03/21/17 Albuterol Sulfate [Proair Hfa] 2 puff IH Q6H 03/21/17 Insulin Glargine,Hum.rec.anlog [Lantus] 15 unit SUBCUT BEDTIME 03/21/17 Insulin Regular, Human [Humulin R] 8 unit SUBCUT TID 03/21/17 Levothyroxine Sodium [Synthroid] 75 mcg PO QDAC 03/21/17 Pramipexole Di-HCl [Mirapex] 0.75 mg PO Q8H PRN 03/21/17 Silver Sulfadiazine [Silvadene Cream] 1 applic TP BID PRN 03/21/17 Disposition Discussed With: Patient
--- NOTE | 2017-03-21 08:19 | US ---
EXAM: Right lower extremity venous doppler. HISTORY: Right knee pain, popliteal space. COMPARISON: None available. TECHNIQUE: Multiple grayscale and color doppler images were obtained. FINDINGS: There is normal flow, compressibility and augmentation of flow within the right common fe moral, greater saphenous, profunda, femoral, popliteal, posterior tibial, anterior tibial and perone al veins. IMPRESSION: No evidence for right lower extremity deep vein thrombosis at the levels examined.
[2017-03-21 09:00] VITALS: BP 153/75
== END 2017-03-21 08:50 | disposition home or self-care (01) ==
LOC: ED 00:57
DX: M25.561 Pain in right knee (principal); M79.661 Pain in right lower leg; F17.210 Nicotine dependence, cigarettes, uncomplicated; Z79.899 Other long term (current) drug therapy
CPT/HCPCS: 96372; 99283

== ENCOUNTER 2017-03-28 14:53 | Emergency (ER) ==
[2017-03-28 14:53] VITALS: BMI 28.5
[2017-03-28 14:59] VITALS: BP 96/53; TEMP 100.3
--- NOTE | 2017-03-28 15:40 | ED.PDOC ---
General ED Provider: Dr. BRANDYN AGUIRRE JR Chief Complaint: Knee Pain/Injury Stated Complaint: states he had a cortisone shot in his left knee on , on tuesday his right knee started hurting and then he fell this morning reinjuring his left knee [End]100.3 62 20 90% 96/53 10.10 Time Seen by Physician: 15:35 Mode of Arrival: Walk-In Information Source: Patient Exam Limitations: No limitations Primary Care Provider: FUNMI CISSE Nursing and Triage Documentation Reviewed and Agree: No Review of Systems - Review Of Systems Constitutional: Reports: Malaise, Weakness Respiratory: Reports: Cough, Short of air Cardiac: Reports: Edema (almost resolved) Musculoskeletal: Reports: Joint pain (knees left more than right recent fall increased right painafte left injection knees warm on exvidence infectionbut note low grade fever) Skin: Reports: Lesions (multiple abrasions) Neurological: Reports: Other Endocrine: Reports: No symptoms All Other Systems: Other Past Medical History - Past Medical History Previously Healthy: Yes Endocrine: Reports: DM 1 (MEDS), Hypothyroid, Other (GOUT-MEDS) Cardiovascular: Reports: CAD, Hypertension, CHF (MEDS), A-Fib Respiratory: Reports: COPD (MEDS) Hematological: Reports: None Gastrointestinal: Reports: None Genitourinary: Reports: Other (PROSTATISM) Neuro/Psych: Reports: Anxiety Musculoskeletal: Reports: None Cancer: Reports: None Other Pertinent Past Medical History: HERNIA,BACK,NECK,STOMACH defib htn dm copd cad - Surgical History General Surgical History: Reports: Pacemaker (DEFIB), Orthopedic (NECK), Back Surgery, Other (hernia repair,STOMACH SX AAA, prostate ercp scheduled for reevaluation), Unknown (stomach surgery) - Family History Family History: Reports: None - Social History Smoking Status: Current every day smoker, Heavy tobacco smoker Hx Substance Use: No Alcohol Screening: None Physical Exam - Physical Exam Appearance: Ill-appearing, Thin Ill-appearing: Mild Pain Distress: Moderate Eyes: SHLOMO, EOMI, Conjunctiva clear ENT: Ears normal, Nose normal, Oropharynx normal Neck: Supple Respiratory: Airway patent, Breath sounds diminished Cardiovascular: RRR GI/: Soft, Nontender Musculoskeletal: Normal strength, Limited ROM (pain on rom knees) Skin: Warm, Dry, Normal color (note multipe abrasions) Neurological: Sensation intact, Motor intact, Reflexes intact, Cranial nerves intact, Alert, Oriented Critical Care Note - Critical Care Note Total Time (mins): 0 Course - Course Orders, Labs, Meds: Orders Category Date Time Status Morphine Sulfate [Morphine 4 mg/ml Syringe] MEDS 03/28/17 15:57 Discontinued 4 mg IM ONCE STA Ondansetron HCl/Pf [Zofran 4 mg/2 ml] MEDS 03/28/17 15:50 Discontinued 4 mg IM ONCE STA Medications Discontinued Medications Generic Name Dose Route Start Last Admin Trade Name Freq PRN Reason Stop Dose Admin Morphine Sulfate 4 mg 03/28/17 15:57 03/28/17 16:13 Morphine 4 Mg/Ml Syringe IM 03/28/17 15:58 4 mg ONCE STA Administration Ondansetron HCl 4 mg 03/28/17 15:50 03/28/17 16:13 Zofran 4 Mg/2 Ml IM 03/28/17 15:51 4 mg ONCE STA Administration Vital Signs: Temp Pulse Resp BP Pulse Ox 03/28/17 14:53 100.3 F H 62 20 96/53 L 90 L Departure - Departure Time of Disposition: 16:29 Disposition: HOME SELF-CARE Discharge Problem: Injury of knee, Knee pain Instructions: Contusion in Adults (ED), Knee Pain (ED) Condition: Good Pt referred to PMD for follow-up: Yes Additional Instructions: recheck orthopedics call in morning for follow up pain after injection return if fever over 101.0 return if increasing pain and swelling Allergies/Adverse Reactions: Allergies Penicillins Adverse Reaction (Intermediate, Verified 03/28/17 14:59) UNKNOWN Home Medications: Ambulatory Orders Allopurinol [Zyloprim] 300 mg PO BEDTIME 04/11/13 Amiodarone HCl [Cordarone] 200 mg PO DAILY 04/11/13 Aspirin [Aspirin Chewable] 81 mg PO DAILY 04/11/13 Carvedilol [Coreg] 6.25 mg PO BID 04/11/13 Digoxin [Lanoxin] 125 mcg PO DAILY 04/11/13 Furosemide [Lasix Tab] 40 mg PO BID 04/11/13 Gabapentin [Neurontin] 300 mg PO BID 04/11/13 Insulin Glargine,Hum.rec.anlog [Lantus] 15 units PO BEDTIME 04/11/13 Nitroglycerin [Nitrostat] 0.4 mg SL PRN PRN 04/11/13 Potassium Chloride [K-Dur] 20 meq PO BEDTIME 04/11/13 Glipizide 5 mg PO BID 02/05/16 Lisinopril 5 mg PO DAILY 03/09/16 Clonidine HCl [Catapres] 0.1 mg PO BEDTIME PRN 11/18/16 Mirabegron [Myrbetriq] 25 mg PO DAILY 11/18/16 Pramipexole Di-HCl [Pramipexole ER] 0.75 mg PO BID 11/18/16 Albuterol Sulfate 0.083% Neb [Albuterol 0.083% Neb] 1 vial NEB Q6H PRN 03/21/17 Albuterol Sulfate [Proair Hfa] 2 puff IH Q6H 03/21/17 Insulin Regular, Human [Humulin R] 8 unit SUBCUT TID 03/21/17 Levothyroxine Sodium [Synthroid] 75 mcg PO QDAC 03/21/17 Silver Sulfadiazine [Silvadene Cream] 1 applic TP BID PRN 03/21/17
[2017-03-28] MEDS ORDERED: ZOFRAN 4 MG/2 ML IM STA (15:50)
[2017-03-28] MEDS ORDERED: MORPHINE 4 MG/ML SYRINGE IVP STA (15:50)
[2017-03-28] MEDS ORDERED: MORPHINE 4 MG/ML SYRINGE IM STA (15:57)
== END 2017-03-28 18:57 | disposition home or self-care (01) ==
LOC: ED 14:53
DX: M25.562 Pain in left knee (principal); M25.561 Pain in right knee; W19.XXXA Unspecified fall, initial encounter; F17.210 Nicotine dependence, cigarettes, uncomplicated
CPT/HCPCS: 96372; 99283

== ENCOUNTER 2017-03-29 09:27 | Outpatient (CLI) ==
[2013-04-11 01:57] VITALS: TEMP 98.6
[2017-03-28 14:53] VITALS: BMI 28.5
--- NOTE | 2017-03-29 09:53 | DI ---
EXAM: Left knee two views HISTORY: Knee pain COMPARISON: 11/13/2012 FINDINGS: No fracture or dislocation. Bones appear demineralized. Moderate lateral and retropatel lar osteophytes. Mild to moderate narrowing medial compartment. Mild narrowing patellofemoral comp artment. Small joint effusion. IMPERSSION: 1. Tricompartmental osteoarthritis, mild to moderate. 2. Small joint effusion. 3. Bones appear demineralized.
== END 2017-03-29 09:28 | disposition home or self-care (01) ==
LOC: RAD 09:27
PROVIDERS: ATTEND Family Medicine
DX: M25.562 Pain in left knee (principal); R26.9 Unspecified abnormalities of gait and mobility; G62.9 Polyneuropathy, unspecified; M54.2 Cervicalgia; M54.9 Dorsalgia, unspecified; G89.29 Other chronic pain; W19.XXXA Unspecified fall, initial encounter

== ENCOUNTER 2017-04-13 07:35 | Outpatient (CLI) | payer OTHER ==
[2013-04-11 01:57] VITALS: TEMP 98.6
== END 2017-04-13 07:36 | disposition home or self-care (01) ==
LOC: WOUND 07:35
PROVIDERS: ATTEND Nurse Practitioner Family
DX: S80.812A Abrasion, left lower leg, initial encounter (principal); E11.9 Type 2 diabetes mellitus without complications; I10 Essential (primary) hypertension; J44.9 Chronic obstructive pulmonary disease, unspecified; R60.0 Localized edema; I50.9 Heart failure, unspecified; G62.9 Polyneuropathy, unspecified; M25.562 Pain in left knee; M25.561 Pain in right knee; R26.9 Unspecified abnormalities of gait and mobility; M54.2 Cervicalgia; M54.9 Dorsalgia, unspecified; G89.29 Other chronic pain
CPT/HCPCS: 87070; 99202

== ENCOUNTER 2017-04-20 08:55 | Outpatient (CLI) | payer OTHER ==
[2013-04-11 01:57] VITALS: TEMP 98.6
== END 2017-04-20 08:56 | disposition home or self-care (01) ==
LOC: WOUND 08:55
PROVIDERS: ATTEND Nurse Practitioner Family
DX: S80.812A Abrasion, left lower leg, initial encounter (principal); E11.9 Type 2 diabetes mellitus without complications; I10 Essential (primary) hypertension; J44.9 Chronic obstructive pulmonary disease, unspecified; R60.0 Localized edema; I50.9 Heart failure, unspecified; G62.9 Polyneuropathy, unspecified

== ENCOUNTER 2017-04-26 10:00 | Outpatient (RCR) ==
[2013-04-11 01:57] VITALS: TEMP 98.6
--- NOTE | 2017-04-08 16:02 | RS.OPPTEV2 ---
Date of Note: 04/07/17 Visit #: 1 Date of Evaluation: 04/07/17 Payer Source: MEDICARE Surgery Performed?: No Treatment Diagnosis: Knee pain, gait difficulty History of Condition/Mechanism of Injury:: Patient reports progressive left knee pain. He reports right knee "blowed out" 2-3 weeks ago. Prior Level of Function.....Patient was independent with: ADL's, Self Care, Ambulation/Mobility, Community Integration/Access Functional Limitations: Sitting, Standing, Bending, Squatting, Ambulation, Community Access/Integration Current Subjective/complaints:: Patient reports bilateral knee pain. States the left had been the main problem. He received a cortisone injection in the left knee, and states it helped temporarily. Reports his pain is not the top of the knee joints, but behind the knees in the muscles. States he has had a history of falls. He usually uses a straight cane with walking. States he has pain with bending the knee and putting his weight on it. States at times he gets pain all the way down the left LE. States he has osteoarthritis in the left knee, but he is not a candidate for surgery due to having other medical conditions. He lives in an apartment on the ground floor. States he has difficulty getting in and out of his truck. He has a brace for the left knee. States he has tried wearing it, but it does not help. Reports having current open areas on his LE's due to cellulitis. He denies attending wound care treatment for the LE's. Medical History Medical History: Hypertension, COPD, Diabetes, Arthritis Smoking Status: Current every day smoker Diagnostic Testing/Imaging:: X ray of left knee on 03/29/17: Impression: "Tricompartmental osteoarthritis, mild to moderate. Small joint effusion. Bones appear demineralized." Patient's Goals: His goal is to get relief of knee pain. Pain Assessment - Pain Description Pain Location: bilateral knees, left worst Current Pain Intensity: 7-8/10 Worst Pain Intensity: 10/10 Functional Outcome Measure LE Functional Scale: 14 (1480=82.5% impairment) - G Codes & Severity Modifier G Codes & Modifier: Mobility current CM. Mobility goal CJ Source of G Code score: LE functional scale Observation - Observation Inspection: Patient presents to the department via wheelchair from admitting area. Patient has straight cane with him. Gait - Gait Pattern Gait Comments: Patient ambulates with straight cane, demonstrates flexed forward posture at the lumbar spine and hips. He demonstrates decreased stance on the Left LE. Exhibits decreased bilateral hip and knee flexion. - Left Knee ROM Left Knee Extension: -8 degrees from full extension Left Knee Flexion: 108 (degrees AROM) Knee ROM Limitations: Soft Tissue Tightness, Pain - Right Knee ROM Right Knee Extension: -5 degrees from full extension Right Knee Flexion: 118 (degrees AROM) Knee ROM Limitations: Soft Tissue Tightness, Pain - Left Knee Strength Left Knee Extension: 4 Good Left Knee Flexion: 4 Good Comments: Left hip strength 4/5. - Right Knee Strength Right Knee Extension: 4 Good Right Knee Flexion: 4 Good Comments: Left hip strength 4/5. - Special Tests Knee Anterior Drawer Test: Negative Left, Negative Right Knee Posterior Drawer Test: Negative Left, Negative Right Knee Valgus Stress Test: Negative Right, Positive Left Knee Varus Stress Test: Negative Left, Negative Right Knee Apley Compression Test: Negative Left, Negative Right Patella Apprehension Test: Negative Left, Negative Right Patellar Compression Test: Negative Right, Positive Left Palpation Comments:: Reports no tenderness with palpation throughout the HS tendons of either knee, but states this is usually an area of pain when walking. He does report moderate tenderness with palpation around the perimeter of bilateral patella. Sensation - Sensation Right Lower Extremity: Impaired Left Lower Extremity: Impaired Comments: Reports impaired sensation to bilateral LE's Balance - Sitting Balance Static Sitting Balance: Good Dynamic Sitting Balance: Good - Standing Balance Static Standing Balance: Fair (+) Dynamic Standing Balance: Fair (+) Additional Comments: Additional Comments: Bilateral SLR to 30-35 degrees. - Treatment Modality: Ultrasound Parameters/Method Applied: 1.5 w/cm2 continuous to left knee joint along the perimeter of the patella. Patient Position: Sitting (with leg elevated) Interventions - Exercise/Activities/Manual Therapy Exercises/Activities: Quad sets, HS stretching, and LAQ's for HEP. Manual Therapy: Na - Charges Total Direct Minutes: 45 mins Total Treatment Time: 45 mins Procedures billed for this date of service:: US Chris Assessment Assessment: Patient presents to therapy with a diagnosis of bilateral knee pain. He reports difficulty with ambulation and with getting in and out of his truck. He exhibits bilateral hip and knee joint weakness and limited extension of both knees. Bilateral hamstrings are significantly tight. He demonstrates potential to benefit from modalities, but main emphasis on HS stretching and hip and knee strengthening. Patient Education: Education of diagnosis, Home Exercise Program, Education of Plan of Care Rehab Potential: Good Short Term Goals Goal #1: Patient independent with home exercise program. Goal to be met by: 04/22/17 Goal #2: SLR bilaterally to 40 degrees. Goal to be met by: 04/22/17 Goal #3: Bilateral quad strength 4+/5. Goal to be met by: 04/22/17 Goal #4: Pt will demo. good safety with ambulation short distances in the department Goal to be met by: 04/22/17 Custodial Goals Goal #1: Pt knows HEP and to continue ex's to maintain functional level at D/C. Goal to be met by: 05/13/17 Goal #2: Score on LE functional scale improved to <39% impairment. Goal to be met by: 05/13/17 Goal #3: Pt will ambulate w/ cane with good safety and minimal gait deviation. Goal to be met by: 05/13/17 Goal #4: Pt will report minimal difficulty with getting in and out of his truck. Goal to be met by: 05/13/17 Plan - Treatment to be Provided Procedures: Therapeutic Exercises, Therapeutic Activity, Manual Therapy, Patient Education Modalities: Electrical Stimulation, Ultrasound/Phonophoresis, Cryotherapy, Hot Packs - Treatment Plan Frequency: 3 X week Duration: 4 weeks ORDER # VISITS AND/OR THROUGH DATE: 05/13/17 - Treatment Code (1) Right knee pain Qualifiers: Chronicity: acute Qualified Description: Acute pain of right knee Qualifier Code(s): (M25.561) Pain in right knee (2) Left knee pain Qualifiers: Chronicity: chronic Qualified Description: Chronic pain of left knee Qualifier Code(s): (M25.562) Pain in left knee (3) Gait difficulty Comments: R26.9 (4) History of fall Comments: Z91.81
--- NOTE | 2017-04-11 10:49 | RS.OPPTDN ---
Subjective Date of Note: 04/11/17 Visit #: 2 Date of Evaluation: 04/07/17 Payer Source: MEDICARE Treatment Diagnosis: Knee pain, gait difficulty Current Subjective/complaints:: Patient reports he has not taken any pain meds. this morning,has moderate knee pain in both knees. Pain Assessment - Pain Description Pain Location: bilateral knees, left worst Pain Description: Dull, Aching Current Pain Intensity: 4-5/10 - Treatment Modality: Ultrasound Parameters/Method Applied: 15 mins. total 7.5 mins. to each knee,continuous mode @ 1.0 w/cm2. Patient Position: Supine - Heat/Cryotherapy Treatment: Hot Pack (20 mins. to knees/hamstrings prior to US and exercises) Interventions - Exercise/Activities/Manual Therapy Exercises/Activities: 20 mins.Quad sets, HS stretching, and LAQ's each LE.Reviewed HEP of same exercises. Total minutes of Exercise: 20 Manual Therapy: Na Total minutes of Manual Therapy: 0 HOME EXERCISE PROGRAM: Quad sets,hamstring stretches,LAQ's.Recommended 2-3 setsof 10-15 reps. as tolerated,2-3 times per day. - Charges Total Direct Minutes: 35 Total Treatment Time: 55 Procedures billed for this date of service:: hp,US,ex Assessment: Patient very sleepy today,requires cues to stay on task ,but he does the exercises properly .He has moderate hamstring tightness bilaterally, reports pain in the posterior thigh while doing LAQ's due to this tightness.He ambulates with widened EZIO and knees flexed. Patient Education: Education of diagnosis, Body/Joint mechanics, Home Exercise Program, Home Safety, Activity Modification, Education of Plan of Care Short Term Goals Goal #1: Patient independent with home exercise program. Goal to be met by: 04/22/17 Goal #2: SLR bilaterally to 40 degrees. Goal to be met by: 04/22/17 Goal #3: Bilateral quad strength 4+/5. Goal to be met by: 04/22/17 Goal #4: Pt will demo. good safety with ambulation short distances in the department Goal to be met by: 04/22/17 Customer Energy Specialist Goals Goal #1: Pt knows HEP and to continue ex's to maintain functional level at D/C. Goal to be met by: 05/13/17 Goal #2: Score on LE functional scale improved to <39% impairment. Goal to be met by: 05/13/17 Goal #3: Pt will ambulate w/ cane with good safety and minimal gait deviation. Goal to be met by: 05/13/17 Goal #4: Pt will report minimal difficulty with getting in and out of his truck. Goal to be met by: 05/13/17 Plan PLAN OF CARE EXPIRES ON:: 05/13/17 ORDER # VISITS AND/OR THROUGH DATE: 05/13/17 PLAN: Continue Plan of Care
--- NOTE | 2017-04-13 13:44 | RS.OPPTDN ---
Subjective Date of Note: 04/13/17 Visit #: 3 Date of Evaluation: 04/07/17 Payer Source: MEDICARE Treatment Diagnosis: Knee pain, gait difficulty Current Subjective/complaints:: Patient says he has just had wound care for the lower legs. He says knee pain seemed to be better after treatment last session. Reports his legs are restless and has to move them often. Pain Assessment - Pain Description Pain Location: bilateral knees, left worst Pain Description: Dull, Aching Current Pain Intensity: 4-5/10 - Treatment Modality: Ultrasound Parameters/Method Applied: continuous @ 1.0 w/cm2 x 8 mins each knee med/lat aspect supine Patient Position: Supine - Heat/Cryotherapy Treatment: Hot Pack (bilateral knees, then hams x 10 mins each supine) Interventions - Exercise/Activities/Manual Therapy Exercises/Activities: 15 mins. Quad sets, HS stretching, and SAQ's, hip abd/ add bilaterally. Reviewed HEP of same exercises. Manual Therapy: Na HOME EXERCISE PROGRAM: Quad sets,hamstring stretches,LAQ's.Recommended 2-3 setsof 10-15 reps. as tolerated,2-3 times per day. - Charges Total Direct Minutes: 31 Total Treatment Time: 51 Procedures billed for this date of service:: hp, u/s, ex Assessment: Bilateral HS very limited in length and experiencing discomfort, needing to move the legs during passive stretching. He experiences difficulty with the first 8-10 steps and then he regains mobility and less painful. Patient Education: Education of diagnosis, Body/Joint mechanics, Home Exercise Program, Home Safety, Activity Modification, Education of Plan of Care Patient demonstrates compliance with HEP?: Yes Short Term Goals Goal #1: Patient independent with home exercise program. Goal to be met by: 04/22/17 Goal #2: SLR bilaterally to 40 degrees. Goal to be met by: 04/22/17 Goal #3: Bilateral quad strength 4+/5. Goal to be met by: 04/22/17 Goal #4: Pt will demo. good safety with ambulation short distances in the department Goal to be met by: 04/22/17 Wire Coiler Machine Operator Goals Goal #1: Pt knows HEP and to continue ex's to maintain functional level at D/C. Goal to be met by: 05/13/17 Goal #2: Score on LE functional scale improved to <39% impairment. Goal to be met by: 05/13/17 Goal #3: Pt will ambulate w/ cane with good safety and minimal gait deviation. Goal to be met by: 05/13/17 Goal #4: Pt will report minimal difficulty with getting in and out of his truck. Goal to be met by: 05/13/17 Plan PLAN OF CARE EXPIRES ON:: 05/13/17 ORDER # VISITS AND/OR THROUGH DATE: 05/13/17 PLAN: Continue Plan of Care
--- NOTE | 2017-04-15 13:07 | RS.OPPTDN ---
Subjective Date of Note: 04/15/17 Visit #: 4 Date of Evaluation: 04/07/17 Payer Source: MEDICARE Treatment Diagnosis: Knee pain, gait difficulty Current Subjective/complaints:: Patient says he doesn't know if therapy is helping his knees. He says he is just sleepy. Pain Assessment - Pain Description Pain Location: bilateral knees, left worst Pain Description: Dull, Aching Current Pain Intensity: Does not rate - Treatment Modality: Ultrasound Parameters/Method Applied: continuous @ 1.0 w/cm2 x 8 mins each surrounding the knee joint (med/lat aspect) Patient Position: Supine - Heat/Cryotherapy Treatment: Hot Pack (ant/post knees x 20 mins supine) Interventions - Exercise/Activities/Manual Therapy Exercises/Activities: 6 mins. Quad sets, and SAQ's, hip abd/add bilaterally. Patient very sleepy and needs frequent reminders to continue performing. Reviewed HEP of same exercises. Manual Therapy: Na HOME EXERCISE PROGRAM: Quad sets,hamstring stretches,LAQ's.Recommended 2-3 setsof 10-15 reps. as tolerated,2-3 times per day. - Charges Total Direct Minutes: 22 Total Treatment Time: 42 Procedures billed for this date of service:: hp, u/s, Assessment: Patient very sleepy throughout all treatment and exercises. He needs frequent prompts to continue on with exercises. He was assisted to PT department and to his truck by w/c. Patient Education: Education of diagnosis, Body/Joint mechanics, Home Exercise Program, Home Safety, Activity Modification, Education of Plan of Care Short Term Goals Goal #1: Patient independent with home exercise program. Goal to be met by: 04/22/17 Goal #2: SLR bilaterally to 40 degrees. Goal to be met by: 04/22/17 Goal #3: Bilateral quad strength 4+/5. Goal to be met by: 04/22/17 Goal #4: Pt will demo. good safety with ambulation short distances in the department Goal to be met by: 04/22/17 [facility] Goals Goal #1: Pt knows HEP and to continue ex's to maintain functional level at D/C. Goal to be met by: 05/13/17 Goal #2: Score on LE functional scale improved to <39% impairment. Goal to be met by: 05/13/17 Goal #3: Pt will ambulate w/ cane with good safety and minimal gait deviation. Goal to be met by: 05/13/17 Goal #4: Pt will report minimal difficulty with getting in and out of his truck. Goal to be met by: 05/13/17 Plan PLAN OF CARE EXPIRES ON:: 05/13/17 ORDER # VISITS AND/OR THROUGH DATE: 05/13/17 PLAN: Progress Exercises
--- NOTE | 2017-04-18 16:37 | RS.OPPTDN ---
Subjective Date of Note: 04/18/17 Visit #: 5 Date of Evaluation: 04/07/17 Payer Source: MEDICARE Treatment Diagnosis: Knee pain, gait difficulty Current Subjective/complaints:: Patient says he thinks he is doing better some days, and others his knees are no different. Pain Assessment - Pain Description Pain Location: bilateral knees, left worst Pain Description: Dull, Aching Current Pain Intensity: Does not rate - Treatment Modality: Ultrasound Parameters/Method Applied: continuous @ 1.0 w/cm2 x 8 mins each knee Patient Position: Supine - Heat/Cryotherapy Treatment: Hot Pack (ant/post knees supine) Interventions - Exercise/Activities/Manual Therapy Exercises/Activities: 12 mins. HS stretching bilaterally x 2. Quad sets, and SAQ's, hip abd/add 2x10 reps bilaterally. Manual Therapy: Na HOME EXERCISE PROGRAM: Quad sets,hamstring stretches,LAQ's.Recommended 2-3 setsof 10-15 reps. as tolerated,2-3 times per day. - Charges Total Direct Minutes: 28 Total Treatment Time: 48 Procedures billed for this date of service:: hp, u/s, ex Assessment: Patient unsure if knee pain is being relieved at this time. He remains quite tight to bilateral HS especially to the L. He continues to be sleepy and needs frequent prompts to perform exercises. He was assisted to/ from our dept and to his truck. He demo improved transfers to w/c as they are more controlled and reaches for arm rests instead of plopping into seat. Patient Education: Education of diagnosis, Body/Joint mechanics, Home Exercise Program, Home Safety, Activity Modification, Education of Plan of Care Short Term Goals Goal #1: Patient independent with home exercise program. Goal to be met by: 04/22/17 Goal #2: SLR bilaterally to 40 degrees. Goal to be met by: 04/22/17 Goal #3: Bilateral quad strength 4+/5. Goal to be met by: 04/22/17 Goal #4: Pt will demo. good safety with ambulation short distances in the department Goal to be met by: 04/22/17 [facility] Goals Goal #1: Pt knows HEP and to continue ex's to maintain functional level at D/C. Goal to be met by: 05/13/17 Goal #2: Score on LE functional scale improved to <39% impairment. Goal to be met by: 05/13/17 Goal #3: Pt will ambulate w/ cane with good safety and minimal gait deviation. Goal to be met by: 05/13/17 Goal #4: Pt will report minimal difficulty with getting in and out of his truck. Goal to be met by: 05/13/17 Plan PLAN OF CARE EXPIRES ON:: 05/13/17 ORDER # VISITS AND/OR THROUGH DATE: 05/13/17 PLAN: Progress Exercises
--- NOTE | 2017-04-20 12:07 | RS.OPPTDN ---
Subjective Date of Note: 04/20/17 Visit #: 6 Date of Evaluation: 04/07/17 Payer Source: MEDICARE Treatment Diagnosis: Knee pain, gait difficulty Current Subjective/complaints:: Patient says his knees felt better yesterday and thinks treatment is helping. He says he notices he can sit down in his chair antd toilet much easier. States he has had more trouble with RLS though and has taken an extra pill for controlling it. Says knee pain is posteriorally. Pain Assessment - Pain Description Pain Location: bilateral knees, left worst Pain Description: Dull, Aching Current Pain Intensity: Does not rate - Heat/Cryotherapy Treatment: Hot Pack (20 mins to posterior knees/HS supine) Interventions - Exercise/Activities/Manual Therapy Exercises/Activities: 23. HS stretching bilaterally x 4. Attempted 90/90 stretch, Quad sets, SLR, and SAQ's, hip abd/add 2x10 reps bilaterally. Patient more awake and alert today, so more emphasis was placed on therex. Manual Therapy: Na HOME EXERCISE PROGRAM: Quad sets,hamstring stretches,LAQ's.Recommended 2-3 setsof 10-15 reps. as tolerated,2-3 times per day. - Charges Total Direct Minutes: 23 Total Treatment Time: 43 Procedures billed for this date of service:: hp, ex2 Assessment: Patient experiencing less knee pain and improved ability to have controlled transfers for stand to sit. He remains with very tight bilateral HS and difficult for him to claudine. Patient Education: Education of diagnosis, Body/Joint mechanics, Home Exercise Program, Home Safety, Activity Modification, Education of Plan of Care Short Term Goals Goal #1: Patient independent with home exercise program. Goal to be met by: 04/22/17 Goal #2: SLR bilaterally to 40 degrees. Goal to be met by: 04/22/17 Goal #3: Bilateral quad strength 4+/5. Goal to be met by: 04/22/17 Goal #4: Pt will demo. good safety with ambulation short distances in the department Goal to be met by: 04/22/17 Long-Term Goals Goal #1: Pt knows HEP and to continue ex's to maintain functional level at D/C. Goal to be met by: 05/13/17 Goal #2: Score on LE functional scale improved to <39% impairment. Goal to be met by: 05/13/17 Goal #3: Pt will ambulate w/ cane with good safety and minimal gait deviation. Goal to be met by: 05/13/17 Goal #4: Pt will report minimal difficulty with getting in and out of his truck. Goal to be met by: 05/13/17 Plan PLAN OF CARE EXPIRES ON:: 05/13/17 ORDER # VISITS AND/OR THROUGH DATE: 05/13/17 PLAN: Progress Exercises
--- NOTE | 2017-04-26 13:35 | RS.OPPTDN ---
Subjective Date of Note: 04/26/17 Visit #: 8 Date of Evaluation: 04/07/17 Payer Source: MEDICARE Treatment Diagnosis: Knee pain, gait difficulty Current Subjective/complaints:: Patient says he is doing better. C/c is L knee pain. Reports being able to get up from chair with only one hand now. Pain Assessment - Pain Description Pain Location: L knee primarily Pain Description: Dull, Aching Current Pain Intensity: Does not rate - Heat/Cryotherapy Treatment: Hot Pack (bilateral knees in supine x 20 mins) Interventions - Exercise/Activities/Manual Therapy Exercises/Activities: 24. HS stretching bilaterally x 4. Attempted 90/90 stretch, Quad sets, SLR, and SAQ's, hip abd/add 2x10, pillow squeezes reps bilaterally. Manual Therapy: Na HOME EXERCISE PROGRAM: Quad sets,hamstring stretches,LAQ's.Recommended 2-3 setsof 10-15 reps. as tolerated,2-3 times per day. - Charges Total Direct Minutes: 24 Total Treatment Time: 44 Procedures billed for this date of service:: hp, ex2 Assessment: Patient admitting improved knee pain (R), but C/c is L posterior at this time. Some improvement with bal and ADLs as he is able to transfer with less difficulty. Patient Education: Education of diagnosis, Body/Joint mechanics, Home Exercise Program, Home Safety, Activity Modification, Education of Plan of Care Patient demonstrates compliance with HEP?: Yes (limited) Short Term Goals Goal #1: Patient independent with home exercise program. Goal to be met by: 04/22/17 Progress towards Goal:: Progressing Goal #2: SLR bilaterally to 40 degrees. Goal to be met by: 04/22/17 Progress towards Goal:: Progressing Goal #3: Bilateral quad strength 4+/5. Goal to be met by: 04/22/17 Progress towards Goal:: Progressing Goal #4: Pt will demo. good safety with ambulation short distances in the department Goal to be met by: 04/22/17 Group Home Goals Goal #1: Pt knows HEP and to continue ex's to maintain functional level at D/C. Goal to be met by: 05/13/17 Goal #2: Score on LE functional scale improved to <39% impairment. Goal to be met by: 05/13/17 Goal #3: Pt will ambulate w/ cane with good safety and minimal gait deviation. Goal to be met by: 05/13/17 Goal #4: Pt will report minimal difficulty with getting in and out of his truck. Goal to be met by: 05/13/17 Plan PLAN OF CARE EXPIRES ON:: 05/13/17 ORDER # VISITS AND/OR THROUGH DATE: 05/13/17 PLAN: Progress Exercises
--- NOTE | 2017-04-26 13:37 | RS.OPPTDN ---
Subjective Date of Note: 04/22/17 Visit #: 7 Date of Evaluation: 04/07/17 Payer Source: MEDICARE Treatment Diagnosis: Knee pain, gait difficulty Current Subjective/complaints:: Patient says his pain is good for several hours after therapy and until after bedtime. He says pain is quite bad in the morning when he awakes. Says he has been having so much trouble with his L knee and RLS. Pain Assessment - Pain Description Pain Location: bilateral knees, left worst Pain Description: Dull, Aching Current Pain Intensity: Does not rate - Heat/Cryotherapy Treatment: Hot Pack (20 mins each knee in supine) Interventions - Exercise/Activities/Manual Therapy Exercises/Activities: 24. HS stretching bilaterally x 4. Attempted 90/90 stretch, Quad sets, SLR, and SAQ's, hip abd/add, pillow squeezes, 2x10 reps bilaterally. Manual Therapy: Na HOME EXERCISE PROGRAM: Quad sets,hamstring stretches,LAQ's.Recommended 2-3 setsof 10-15 reps. as tolerated,2-3 times per day. - Charges Total Direct Minutes: 24 Total Treatment Time: 44 Procedures billed for this date of service:: hp, ex2 Patient Education: Education of diagnosis, Body/Joint mechanics, Home Exercise Program, Home Safety, Activity Modification, Education of Plan of Care Short Term Goals Goal #1: Patient independent with home exercise program. Goal to be met by: 04/22/17 Progress towards Goal:: Progressing Goal #2: SLR bilaterally to 40 degrees. Goal to be met by: 04/22/17 Progress towards Goal:: Progressing Goal #3: Bilateral quad strength 4+/5. Goal to be met by: 04/22/17 Progress towards Goal:: Progressing Goal #4: Pt will demo. good safety with ambulation short distances in the department Goal to be met by: 04/22/17 Progress towards Goal:: Progressing Intermediate Goals Goal #1: Pt knows HEP and to continue ex's to maintain functional level at D/C. Goal to be met by: 05/13/17 Goal #2: Score on LE functional scale improved to <39% impairment. Goal to be met by: 05/13/17 Goal #3: Pt will ambulate w/ cane with good safety and minimal gait deviation. Goal to be met by: 05/13/17 Goal #4: Pt will report minimal difficulty with getting in and out of his truck. Goal to be met by: 05/13/17 Plan PLAN OF CARE EXPIRES ON:: 05/13/17 ORDER # VISITS AND/OR THROUGH DATE: 05/13/17 PLAN: Progress Exercises
--- NOTE | 2017-04-28 13:17 | RS.CXNS ---
Date of scheduled appointment: 04/28/17 Type: Cancel Reason for Cancel/NS: Patient had fallen and is in ER also with fever.
--- NOTE | 2017-04-29 10:09 | RS.CXNS ---
Date of scheduled appointment: 04/29/17 Type: Cancel Reason for Cancel/NS: Patient had a fall yesterday and his PCP is admitting him to [facility] today.
== END 2017-05-06 ==
PROVIDERS: ATTEND Family Medicine
DX: M25.562 Pain in left knee (principal); M25.561 Pain in right knee; R26.9 Unspecified abnormalities of gait and mobility; G62.9 Polyneuropathy, unspecified; M54.2 Cervicalgia; M54.9 Dorsalgia, unspecified; G89.29 Other chronic pain

== ENCOUNTER 2017-04-27 08:13 | Outpatient (CLI) ==
[2013-04-11 01:57] VITALS: TEMP 98.6
== END 2017-04-27 08:14 | disposition home or self-care (01) ==
LOC: WOUND 08:13
PROVIDERS: ATTEND Nurse Practitioner Family
DX: S80.812A Abrasion, left lower leg, initial encounter (principal); E11.9 Type 2 diabetes mellitus without complications; I10 Essential (primary) hypertension; J44.9 Chronic obstructive pulmonary disease, unspecified; R60.0 Localized edema; I50.9 Heart failure, unspecified; G62.9 Polyneuropathy, unspecified

== ENCOUNTER 2017-04-28 09:13 | Emergency (ER) | payer OTHER ==
[2017-04-28] MEDS ORDERED: ROCEPHIN 1 GM in SODIUM CHLORIDE 50 ML IV STA (09:18)
[2017-04-28 09:30] VITALS: BP 102/52; TEMP 101.8; BMI 27.8
[2017-04-28 09:46] LABS: BASOPHILS % (AUTO) 0.4 % (0.0-3.0); EOSINOPHILS % (AUTO) 0.2 % (0.0-7.0); HEMATOCRIT 41.7 % (42.0-52.0); HEMOGLOBIN 13.8 g/dl (14.0-18.0); IMMATURE GRANULOCYTE % (AUTO) 0.4 % (0.0-5.0); LYMPHOCYTES # (AUTO) 0.8 K/uL (0.60-3.4); LYMPHOCYTES % (AUTO) 8.9 (10.0-50.0); MEAN CORPUSCULAR HEMOGLOBIN 29.9 pg (27.0-31.0); MEAN CORPUSCULAR HGB CONC 33.1 (31.8-35.4); MEAN CORPUSCULAR VOLUME 90.3 fl (80.0-94.0); MONOCYTES # (AUTO) 0.7 K/uL (0.4-2.0); MONOCYTES % (AUTO) 7.5 (0-10); NEUTROPHILS # (AUTO) 7.7 K/ul (2.0-6.9); NEUTROPHILS % (AUTO) 82.6; PLATELET COUNT 204 10^3/uL (140-440); RED BLOOD COUNT 4.62 10^6/ul (4.70-6.10); WHITE BLOOD COUNT 9.37 K/ul (4.2-10.2)
[2017-04-28 10:05] LABS: ALBUMIN 3.5 g/dL (3.4-5.0); ALBUMIN/GLOBULIN RATIO 1.17; ANION GAP 10.4; BUN/CREATININE RATIO 11.37; CALCIUM 8.7 mg/dL (8.2-10.2); CREATININE 1.67 mg/dL (0.60-1.10); POTASSIUM 3.4 mmol/L (3.5-5.1); TOTAL PROTEIN 6.5 g/dL (5.8-8.1)
[2017-04-28] MEDS ORDERED: ROCEPHIN ONE (10:09)
--- NOTE | 2017-04-28 10:13 | US ---
EXAM: ULTRASOUND LOWER EXTREMITY VENOUS DOPPLER EXAM HISTORY: Leg pain. FINDINGS: Left lower extremity venous Doppler exam. Real time dillard-scale, Doppler spectral analysis and color-flow Doppler imaging performed. The veins targeted for evaluation include the common fem oral, greater saphenous, profundus, femoral, popliteal, peroneal, anterior tibial and posterior tibi al. The evaluated veins demonstrated normal spontaneous flow and compression without evidence of t hrombosis. No valvular reflux. 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 IMPRESSION: 1. No DVT identified. 2. 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
--- NOTE | 2017-04-28 11:00 | ED.PDOC ---
General ED Provider: Dr. LILA GARCIA Chief Complaint: Extremity Pain/Injury Stated Complaint: LEFT LEG PAIN Time Seen by Physician: 09:20 (NURSE AT BEDSIDE) Mode of Arrival: Wheelchair Information Source: Patient, Family Exam Limitations: No limitations Primary Care Provider: FUNMI CISSE Nursing and Triage Documentation Reviewed and Agree: Yes Miscellaneous Complaint Exam - Complex/Multi-System Complaint/Exam Onset/Duration: pt complain of Left lower leg pain sees wound care for same issue. Symptoms Are: Still present Episodes Lasting: Hours Initial Severity: Mild Current Severity: Mild Location of Pain: Left lower extremity, refer to photos Pain Radiates to: No Character: dull Aggravating: movement/syncope this morning/no chest pain Alleviating: no chronic issue Associated Signs and Symptoms: Reports: Syncope. 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 please refer to photos) Differential Diagnosis: Other (chronic venous stasis noted on left lower extremity. ) Quality Indicators for Cardiac Chest Pain: EKG in 10min. Quality Indicators for AMI: EKG in 10min. Quality Indicator For Non-Traumatic Chest Pain/Syncope: EKG Performed Review of Systems - Review Of Systems Constitutional: Reports: No symptoms Eyes: Reports: No symptoms Ears, Nose, Mouth, Throat: Reports: No symptoms Respiratory: Reports: No symptoms Cardiac: Reports: No symptoms GI: Reports: No symptoms : Reports: No symptoms Musculoskeletal: Denies: Back pain, Gout, Joint pain, Joint swelling, Muscle pain, Muscle stiffness, Neck pain Skin: Reports: Rash (chronic venous changes. photos submitted. no cord sign palpable. Calf nontender. Distal pulses normal. ) Neurological: Reports: No symptoms Endocrine: Reports: No symptoms Hematologic/Lymphatic: Reports: No symptoms All Other Systems: Reviewed and Negative Past Medical History - Past Medical History Previously Healthy: Yes Endocrine: Reports: DM 1 (MEDS), Hypothyroid, Other (GOUT-MEDS) Cardiovascular: Reports: CAD, Hypertension, CHF (MEDS), A-Fib Respiratory: Reports: COPD (MEDS) Hematological: Reports: None Gastrointestinal: Reports: None Genitourinary: Reports: Other (PROSTATISM) Neuro/Psych: Reports: Anxiety Musculoskeletal: Reports: None Cancer: Reports: None Other Pertinent Past Medical History: HERNIA,BACK,NECK,STOMACH defib htn dm copd cad - Surgical History General Surgical History: Reports: Pacemaker (DEFIB), Orthopedic (NECK), Back Surgery, Other (hernia repair,STOMACH SX AAA, prostate ercp scheduled for reevaluation), Unknown (stomach surgery) - Family History Family History: Reports: None - Social History Smoking Status: Current every day smoker, Heavy tobacco smoker Hx Substance Use: No Alcohol Screening: None Physical Exam - Physical Exam Appearance: Well-appearing, No pain distress, Well-nourished Eyes: SHLOMO, EOMI, Conjunctiva clear ENT: Ears normal, Nose normal, Oropharynx normal Respiratory: Airway patent, Breath sounds clear, Breath sounds equal, Respirations nonlabored Cardiovascular: RRR, Pulses normal, No rub, No murmur GI/: Soft, Nontender, No masses, Bowel sounds normal, No Organomegaly Musculoskeletal: Limited ROM (chronic venous stasis changes. Refer to photos. ) Skin: Warm, Dry, Normal color Neurological: Sensation intact, Motor intact, Reflexes intact, Cranial nerves intact, Alert, Oriented Psychiatric: Affect appropriate, Mood appropriate Physician Notification - Case Discussed Physician Notified: juana Time of Notification: 11:06 (labs and data exchanged. Pt will be seen first thing in the office tomorrow. ) Critical Care Note - Critical Care Note Total Time (mins): 0 Course - Course Hematology/Chemistry: 04/28/17 09:40 04/28/17 09:40 Orders, Labs, Meds: Lab Review 04/28/17 09:40 WBC 9.37 RBC 4.62 L Hgb 13.8 L Hct 41.7 L MCV 90.3 MCH 29.9 MCHC 33.1 RDW Coeff of Christine 13.5 Plt Count 204 Immature Gran % (Auto) 0.4 Neut % (Auto) 82.6 Lymph % (Auto) 8.9 L [place] % (Auto) 7.5 Eos % (Auto) 0.2 Baso % (Auto) 0.4 Immature Gran # (Auto) 0.0 Neut # 7.7 H Lymph # 0.8 [place] # 0.7 Eos # 0.0 Baso # 0.0 Sodium 140 Potassium 3.4 L Chloride 100 Carbon Dioxide 33 H Anion Gap 10.4 BUN 19 H Creatinine 1.67 H Estimated GFR (MDRD) 40.00 BUN/Creatinine Ratio 11.37 Glucose 193 H Lactic Acid 15.1 Calcium 8.7 Total Bilirubin 1.00 AST 19 ALT 16 Alkaline Phosphatase 83 Total Protein 6.5 Albumin 3.5 Globulin 3.0 Albumin/Globulin Ratio 1.17 Procalcitonin 0.48 Orders Category Date Time Status EKG-(ED ONLY) Stat CARDIO 04/28/17 09:18 Completed ED IV/MEDIPORT/POWERPORT .ONCE EMERGENCY 04/28/17 09:19 Active BLOOD CULTURE Stat LAB 04/28/17 09:40 Received CBC W/ AUTO DIFF Stat LAB 04/28/17 09:40 Completed COMPREHENSIVE METABOLIC PANEL Stat LAB 04/28/17 09:40 Completed LACTIC ACID Stat LAB 04/28/17 09:40 Completed PROCALCITONIN Stat LAB 04/28/17 09:40 Completed 0.9 % Sodium Chloride [Saline Flush] MEDS 04/28/17 09:19 Active 1 syr IVF PRN PRN Ceftriaxone Sodium [Rocephin] MEDS 04/28/17 10:09 Discontinued 1 gm .ROUTE .STK-MED ONE Ceftriaxone Sodium [Rocephin] 1 gm MEDS 04/28/17 09:18 Discontinued 0.9 % Sodium Chloride [Sodium Chloride] 50 ml IV ONCE U/S VENOUS SCAN LT. LEG Stat RADS 04/28/17 09:17 Completed Medications Generic Name Dose Route Start Last Admin Trade Name Freq PRN Reason Stop Dose Admin Sodium Chloride 1 syr 04/28/17 09:19 Saline Flush IVF PRN PRN To flush IV Discontinued Medications Generic Name Dose Route Start Last Admin Trade Name Freq PRN Reason Stop Dose Admin Ceftriaxone Sodium 1 gm/ 50 mls @ 75 mls/hr 06/22/17 09:18 04/28/17 10:19 Sodium Chloride IV 04/28/17 09:57 75 mls/hr ONCE STA Administration Vital Signs: Temp Pulse Resp BP Pulse Ox 04/28/17 09:15 101.8 F H 60 20 102/52 L 85 L Departure - Departure Time of Disposition: 11:07 Disposition: HOME SELF-CARE Discharge Problem: Renal insufficiency, Anemia Uncontrolled diabetes mellitus Qualifiers: Diabetes mellitus type: other specified (including CHRISTI) Instructions: Anemia (ED) Condition: Good Pt referred to PMD for follow-up: Yes (IN AM) Additional Instructions: Please call your Family Physician as soon as possible to schedule a follow-up appointment. Allergies/Adverse Reactions: Allergies Penicillins Adverse Reaction (Intermediate, Verified 04/28/17 09:31) UNKNOWN Home Medications: Ambulatory Orders Allopurinol [Zyloprim] 300 mg PO BEDTIME 04/11/13 Amiodarone HCl [Cordarone] 200 mg PO DAILY 04/11/13 Aspirin [Aspirin Chewable] 81 mg PO DAILY 04/11/13 Carvedilol [Coreg] 6.25 mg PO BID 04/11/13 Digoxin [Lanoxin] 125 mcg PO DAILY 04/11/13 Furosemide [Lasix Tab] 40 mg PO BID 04/11/13 Gabapentin [Neurontin] 300 mg PO BID 04/11/13 Insulin Glargine,Hum.rec.anlog [Lantus] 15 units PO BEDTIME 04/11/13 Nitroglycerin [Nitrostat] 0.4 mg SL PRN PRN 04/11/13 Potassium Chloride [K-Dur] 20 meq PO BEDTIME 04/11/13 Glipizide 5 mg PO BID 02/05/16 Lisinopril 5 mg PO DAILY 03/09/16 Clonidine HCl [Catapres] 0.1 mg PO BEDTIME PRN 11/18/16 Pramipexole Di-HCl [Pramipexole ER] 0.75 mg PO BID 11/18/16 Albuterol Sulfate 0.083% Neb [Albuterol 0.083% Neb] 1 vial NEB Q6H PRN 03/21/17 Albuterol Sulfate [Proair Hfa] 2 puff IH Q6H 03/21/17 Insulin Regular, Human [Humulin R] 8 unit SUBCUT TID 03/21/17 Levothyroxine Sodium [Synthroid] 75 mcg PO QDAC 03/21/17 Silver Sulfadiazine [Silvadene Cream] 1 applic TP BID PRN 03/21/17 Hydrocodone/Acetaminophen [[place] 5-325 Tablet] 1 each PO Q6HR PRN 04/28/17 Solifenacin Succinate [Vesicare] 10 mg PO DAILY 04/28/17 Tiotropium [place] [Spiriva] 1 cap IH DAILY 04/28/17 Disposition Discussed With: Patient
== END 2017-04-28 12:29 | disposition home or self-care (01) ==
LOC: ED 09:13
DX: M79.605 Pain in left leg (principal); N28.9 Disorder of kidney and ureter, unspecified; D64.9 Anemia, unspecified; E10.9 Type 1 diabetes mellitus without complications; R55 Syncope and collapse; R21 Rash and other nonspecific skin eruption; E03.9 Hypothyroidism, unspecified; J44.9 Chronic obstructive pulmonary disease, unspecified; I25.10 Atherosclerotic heart disease of native coronary artery without angina pectoris; I87.8 Other specified disorders of veins; F17.210 Nicotine dependence, cigarettes, uncomplicated; Z79.899 Other long term (current) drug therapy; Z95.0 Presence of cardiac pacemaker
CPT/HCPCS: 36415; 80053; 83605; 84145; 85025; 87040; 93005; 93010; 96365; 99283

== ENCOUNTER 2017-05-04 08:36 | Outpatient (CLI) ==
[2013-04-11 01:57] VITALS: TEMP 98.6
== END 2017-05-04 08:37 | disposition home or self-care (01) ==
LOC: WOUND 08:36
PROVIDERS: ATTEND Nurse Practitioner Family
DX: S80.812A Abrasion, left lower leg, initial encounter (principal); E11.9 Type 2 diabetes mellitus without complications; I10 Essential (primary) hypertension; J44.9 Chronic obstructive pulmonary disease, unspecified; R60.0 Localized edema; I50.9 Heart failure, unspecified; G62.9 Polyneuropathy, unspecified
CPT/HCPCS: 99212

== ENCOUNTER 2017-05-21 08:37 | Observation (INO) ==
[2017-05-21] MEDS ORDERED: DUONEB NEB STA (08:50)
[2017-05-21] MEDS ORDERED: SOLU-MEDROL 125 MG IVP STA (08:50)
[2017-05-21 09:10] LABS: BASOPHILS # (AUTO) 0.1 K/uL (0-0.2); BASOPHILS % (AUTO) 0.8 % (0.0-3.0); EOSINOPHILS # (AUTO) 0.3 K/ul (0.0-0.7); HEMATOCRIT 39.6 % (42.0-52.0); HEMOGLOBIN 13.6 g/dl (14.0-18.0); IMMATURE GRANULOCYTE % (AUTO) 0.5 % (0.0-5.0); LYMPHOCYTES # (AUTO) 1.5 K/uL (0.60-3.4); LYMPHOCYTES % (AUTO) 23.4 (10.0-50.0); MEAN CORPUSCULAR HEMOGLOBIN 30.7 pg (27.0-31.0); MEAN CORPUSCULAR HGB CONC 34.3 (31.8-35.4); MEAN CORPUSCULAR VOLUME 89.4 fl (80.0-94.0); MONOCYTES # (AUTO) 0.6 K/uL (0.4-2.0); MONOCYTES % (AUTO) 9.2 (0-10); NEUTROPHILS # (AUTO) 3.9 K/ul (2.0-6.9); NEUTROPHILS % (AUTO) 62.1; PLATELET COUNT 190 10^3/uL (140-440); RED BLOOD COUNT 4.43 10^6/ul (4.70-6.10); WHITE BLOOD COUNT 6.29 K/ul (4.2-10.2)
--- NOTE | 2017-05-21 09:12 | DI ---
EXAM: CHEST FRONTAL VIEW HISTORY: Cough. COMPARISON: 09/17/2016 FINDINGS: Cardiomegaly and general mediastinal contour are unchanged. Left-sided pacemaker unit is again noted without noticeable change. No active congestive heart failure, pneumothorax or visible pleural fluid. Probable mild basilar atelectasis. IMPRESSION: No definite consolidated pneumonia.
[2017-05-21 09:28] LABS: ABG PH 7.42 (7.35-7.45)
[2017-05-21 09:29] LABS: ABG BASE EXCESS 6 (-2.0-2.0); ABG HCO3 30.7 (22.0-26.0); ABG TCO2 32 (22.0-28.0)
[2017-05-21 09:33] LABS: ALBUMIN 3.2 g/dL (3.4-5.0); ALBUMIN/GLOBULIN RATIO 1.23; ANION GAP 10.6; BILIRUBIN,TOTAL 0.35 mg/dL (0.00-1.20); BUN/CREATININE RATIO 15.38; CALCIUM 8.2 mg/dL (8.2-10.2); CREATININE 0.91 mg/dL (0.60-1.10); POTASSIUM 4.6 mmol/L (3.5-5.1); TOTAL PROTEIN 5.8 g/dL (5.8-8.1); TROPONIN I 0.023 ng/ml (0.0000-0.4000)
[2017-05-21] MEDS ORDERED: VANCOMYCIN 1 GM in SODIUM CHLORIDE 250 ML IV STA (10:16)
[2017-05-21] MEDS ORDERED: SODIUM CHLORIDE 1,000 ML IV SCH (10:30)
[2017-05-21 11:01] LABS: ADD URINE MICROSCOPIC NO; BILIRUBIN,URINE Negative (NEGATIVE); KETONES,URINE Negative (NEGATIVE); LEUKOCYTE ESTERASE ,URINE Negative (NEGATIVE); NITRITE,URINE Negative (NEGATIVE); PROTEIN,URINE Negative (NEGATIVE); URINE, BLOOD Negative (NEGATIVE)
--- NOTE | 2017-05-21 11:24 | CT ---
EXAM: CT angiogram of the chest with contrast HISTORY: Elevated D-dimer TECHNIQUE: Imaging of the chest was performed following the intravenous administration of contrast. 3 mm thin axial images and coronal and sagittal reconstructions and rotated 3-D reconstructions wer e provided for interpretation. FINDINGS: No definite filling defects are identified within the branches of the pulmonary arteries. The central pulmonary arteries are normal. No mediastinal abnormalities are seen. The heart is i n the upper limits of normal in size. Lungs are clear. No lytic or blastic lesions are seen within the osseous structures. IMPRESSION: No evidence of acute pulmonary embolism.
--- NOTE | 2017-05-21 12:29 | ED.PDOC ---
General ED Provider: Dr. LILA GARCIA Chief Complaint: Hypertension Stated Complaint: hypertension Time Seen by Physician: 08:38 (b/p upon arrival was not high and pt c/o SOB) Mode of Arrival: Walk-In Information Source: Patient, Family Exam Limitations: No limitations Primary Care Provider: FUNMI CISSE Nursing and Triage Documentation Reviewed and Agree: Yes Cardiovascular Complaint Exam - Hypertension Complaint/Exam Onset/Duration: THIS MORNING WHILE DRIVING INTO [place] BECAME SHORT OF AIR AND HIGH BP OUT Symptoms Are: Resolved Timing: Intermittent Aggravating: Reports: None Alleviating: Reports: None Associated Signs and Symptoms: Reports: Short of air. Denies: Chest pain, Vision changes, Anxiety, Recent stress, Headache, Numbness, Tingling, Weakness, Dizziness, Swelling Related History: Reports: Similar episode Related Surgical History: Reports: None Cardiac Risk Factors: Reports: Hypertension Recent Change in Medications: No A/V [place]: No Papilledema Present: No JVD Present: No Carotid Bruit Present: No Femoral Pulses Bounding: No Differential Diagnoses: Hypertension Quality Indicator For Non-Traumatic Chest Pain/Syncope: EKG Performed Review of Systems - Review Of Systems Constitutional: Reports: No symptoms Eyes: Reports: No symptoms Ears, Nose, Mouth, Throat: Reports: No symptoms Respiratory: Reports: Short of air Cardiac: Reports: No symptoms GI: Reports: No symptoms : Reports: No symptoms Musculoskeletal: Reports: No symptoms Skin: Reports: No symptoms Neurological: Reports: No symptoms Endocrine: Reports: No symptoms Hematologic/Lymphatic: Reports: No symptoms All Other Systems: Reviewed and Negative Past Medical History - Past Medical History Previously Healthy: Yes Endocrine: Reports: DM 1 (MEDS), Hypothyroid, Other (GOUT-MEDS) Cardiovascular: Reports: CAD, Hypertension, CHF (MEDS), A-Fib Respiratory: Reports: COPD (MEDS) Hematological: Reports: None Gastrointestinal: Reports: None Genitourinary: Reports: Other (PROSTATISM) Neuro/Psych: Reports: Anxiety Musculoskeletal: Reports: None Cancer: Reports: None Other Pertinent Past Medical History: HERNIA,BACK,NECK,STOMACH defib htn dm copd cad - Surgical History General Surgical History: Reports: Pacemaker (DEFIB), Orthopedic (NECK), Back Surgery, Other (hernia repair,STOMACH SX AAA, prostate ercp scheduled for reevaluation), Unknown (stomach surgery) - Family History Family History: Reports: None - Social History Smoking Status: Current every day smoker, Heavy tobacco smoker Hx Substance Use: No Alcohol Screening: None Physical Exam - Physical Exam Appearance: Well-appearing, No pain distress, Well-nourished Eyes: SHLOMO, EOMI, Conjunctiva clear ENT: Ears normal, Nose normal, Oropharynx normal Respiratory: Airway patent, Respirations nonlabored, Wheezes Cardiovascular: RRR, Pulses normal, No rub, No murmur GI/: Soft, Nontender, No masses, Bowel sounds normal, No Organomegaly Musculoskeletal: Normal strength, ROM intact, No edema, No calf tenderness Skin: Warm, Dry, Normal color Neurological: Sensation intact, Motor intact, Reflexes intact, Cranial nerves intact, Alert, Oriented Psychiatric: Affect appropriate, Mood appropriate Interpretation - Radiology Interpretation Radiology Interpretation By: Radiologist Radiology Results: No acute changes Critical Care Note - Critical Care Note Total Time (mins): 0 Course - Course Hematology/Chemistry: 05/21/17 09:00 05/21/17 09:00 Orders, Labs, Meds: Lab Review 05/21/17 05/21/17 05/21/17 09:00 09:27 10:30 WBC 6.29 RBC 4.43 L Hgb 13.6 L Hct 39.6 L MCV 89.4 MCH 30.7 MCHC 34.3 RDW Coeff of Christine 13.5 Plt Count 190 Immature Gran % (Auto) 0.5 Neut % (Auto) 62.1 Lymph % (Auto) 23.4 [place] % (Auto) 9.2 Eos % (Auto) 4.0 Baso % (Auto) 0.8 Immature Gran # (Auto) 0.0 Neut # 3.9 Lymph # 1.5 [place] # 0.6 Eos # 0.3 Baso # 0.1 D-Dimer (Manual) 1745.32 Puncture Site R brach O2 Saturation 99.0 ABG pH 7.42 ABG pCO2 47.0 H ABG pO2 136.0 H ABG HCO3 30.7 H ABG Total CO2 32 H ABG Base Excess 6 H Arley Test + FiO2 % 21.0 Sodium 139 Potassium 4.6 Chloride 104 Carbon Dioxide 29 Anion Gap 10.6 BUN 14 Creatinine 0.91 Estimated GFR (MDRD) 81.00 BUN/Creatinine Ratio 15.38 Glucose 127 H Calcium 8.2 Total Bilirubin 0.35 AST 14 L ALT 17 Alkaline Phosphatase 95 Total Creatine Kinase 106 Troponin I 0.0230 Total Protein 5.8 Albumin 3.2 L Globulin 2.6 Albumin/Globulin Ratio 1.23 Urine Color Yellow Urine Clarity Clear Urine pH 6.0 Ur Specific [place] 1.015 Urine Protein Negative Urine Glucose (UA) Negative Urine Ketones Negative Urine Blood Negative Urine Nitrite Negative Urine Bilirubin Negative Urine Urobilinogen 0.2 Ur Leukocyte Esterase Negative Orders Category Date Time Status [facility] ADMISSION 05/21/17 10: 14 Inactive ABG DRAW REQUEST Stat CARDIO 05/21/17 08:51 Completed EKG-(ED ONLY) Stat CARDIO 05/21/17 08:50 Completed EKG-(IP & OP ONLY) DAILY CARDIO 05/23/17 06:00 Stop Req EKG-(IP & OP ONLY) DAILY CARDIO 05/24/17 06:00 Stop Req NEBULIZER TREATMENT Stat CARDIO 05/21/17 08:50 Completed ACTIVITY .Complete BR CARE 05/21/17 10:14 Inactive BLOOD GLUCOSE MONITORING ACCUCHECK Q6H CARE 05/21/17 10:14 Inactive GIVE HS SNACK 2100 CARE 05/21/17 10:16 Inactive NPO REMINDER: IMAGING ONCE CARE 05/21/17 10:10 Inactive TELEMETRY MONITORING TELE CARE 05/21/17 10:15 Inactive VITAL SIGNS Q8HR CARE 05/21/17 10:14 Inactive ED IV/MEDIPORT/POWERPORT .ONCE EMERGENCY 05/21/17 08:49 Completed ABG Stat LAB 05/21/17 09:27 Completed CBC W/ AUTO DIFF Stat LAB 05/21/17 09:00 Completed COMPREHENSIVE METABOLIC PANEL Stat LAB 05/21/17 09:00 Completed CREATINE KINASE Stat LAB 05/21/17 09:00 Completed D-DIMER Stat LAB 05/21/17 09:00 Completed TROPONIN I Stat LAB 05/21/17 09:00 Completed URINALYSIS C & S IF INDICATED Stat LAB 05/21/17 10:30 Completed 0.9 % Sodium Chloride [Saline Flush] MEDS 05/21/17 08:50 Discontinued 1 syr IVF PRN PRN Ipratropium/Albuterol Neb [Duoneb] MEDS 05/21/17 08:50 Discontinued 1 vial NEB ONCE STA Methylprednisolone Sod Succ/Pf [Solu-Medrol 125 mg] MEDS 05/21/17 08:50 Discontinued 125 mg IVP ONCE STA Sodium Chloride 0.9% [Sodium Chloride] 1,000 ml MEDS 05/21/17 10:30 Discontinued IV 75 mls/hr CHEST, 1V AP ONLY Stat RADS 05/21/17 08:[address] CHEST PE PROTOCOL Stat RADS 05/21/17 10:10 Completed Medications Discontinued Medications Generic Name Dose Route Start Last Admin Trade Name Freq PRN Reason Stop Dose Admin Albuterol/Ipratropium 1 vial 05/21/17 08:50 05/21/17 09:20 Duoneb NEB 05/21/17 08:51 1 vial ONCE STA Administration Sodium Chloride 1,000 mls @ 75 mls/hr 05/21/17 10:30 Sodium Chloride IV .[id number] [id number] Methylprednisolone Sodium Succinate 125 mg 05/21/17 08:50 05/21/17 09:26 Solu-Medrol 125 Mg IVP 05/21/17 08:51 125 mg ONCE STA Administration Sodium Chloride 1 syr 05/21/17 08:50 05/21/17 09:27 Saline Flush IVF 1 syr PRN PRN Administration To flush IV Vital Signs: Temp Pulse Resp BP Pulse Ox 05/21/17 08:38 98.2 F 83 22 155/99 H 89 L GABRIELE Risk Score GABRIELE Risk Score: Risk Score Odds of by 30D 0 0.1 (0.1-0.2) 1 0.3 (0.2-0.3) 2 0.4 (0.3-0.5) 3 0.7 (0.6-0.9) 4 1.2 (1.0-1.5) 5 2.2 (1.9-2.6) 6 3.0 (2.5-3.6) 7 4.8 (3.8-6.1) Departure - Departure Time of Disposition: 12:28 (ABG IS WITHIN NORMAL AND CT CHEST NEGATIVE FOR PE OR HEART FAILURE ) Disposition: HOME SELF-CARE Discharge Problem: Hypertension Qualifiers: Hypertension type: unspecified Qualifier Code: (I10) Essential (primary) hypertension Instructions: Hypertension (ED) Condition: Good Pt referred to PMD for follow-up: Yes Additional Instructions: Please call your Family Physician as soon as possible to schedule a follow-up appointment. Allergies/Adverse Reactions: Allergies Penicillins Adverse Reaction (Intermediate, Verified 05/21/17 08:50) UNKNOWN Home Medications: Ambulatory Orders Allopurinol [Zyloprim] 300 mg PO BEDTIME 04/11/13 Amiodarone HCl [Cordarone] 200 mg PO DAILY 04/11/13 Aspirin [Aspirin Chewable] 81 mg PO DAILY 04/11/13 Carvedilol [Coreg] 6.25 mg PO BID 04/11/13 Digoxin [Lanoxin] 125 mcg PO DAILY 04/11/13 Furosemide [Lasix Tab] 40 mg PO BID 04/11/13 Gabapentin [Neurontin] 300 mg PO TID 04/11/13 Insulin Glargine,Hum.rec.anlog [Lantus] 15 units PO BEDTIME 04/11/13 Nitroglycerin [Nitrostat] 0.4 mg SL PRN PRN 04/11/13 Potassium Chloride [K-Dur] 20 meq PO BEDTIME 04/11/13 Glipizide 5 mg PO BID 02/05/16 Lisinopril 5 mg PO DAILY 03/09/16 Clonidine HCl [Catapres] 0.1 mg PO BEDTIME PRN 11/18/16 Pramipexole Di-HCl [Pramipexole ER] 0.5 mg PO BID 11/18/16 Albuterol Sulfate 0.083% Neb [Albuterol 0.083% Neb] 1 vial NEB Q6H PRN 03/21/17 Albuterol Sulfate [Proair Hfa] 2 puff IH Q6H 03/21/17 Insulin Regular, Human [Humulin R] 8 unit SUBCUT TID 03/21/17 Levothyroxine Sodium [Synthroid] 75 mcg PO QDAC 03/21/17 Silver Sulfadiazine [Silvadene Cream] 1 applic TP BID PRN 03/21/17 Hydrocodone/Acetaminophen [[place] 5-325 Tablet] 1 each PO Q6HR PRN 04/28/17 Solifenacin Succinate [Vesicare] 10 mg PO DAILY 04/28/17 Tiotropium [place] [Spiriva] 1 cap IH DAILY 04/28/17 Disposition Discussed With: Patient
[2017-05-21] MEDS ORDERED: LOVENOX SUBCUT STA (12:42)
[2017-05-21] MEDS ORDERED: SILVADENE CREAM TP PRN (12:42)
[2017-05-21] MEDS ORDERED: NORCO 5-325 PO PRN (12:42)
[2017-05-21] MEDS ORDERED: HUMULIN R SUBCUT STA (12:46)
[2017-05-21] MEDS: SODIUM CHLORIDE 1,000 ML IV SCH (14:15)
[2017-05-21 15:56] VITALS: BMI 29.2
[2017-05-21] MEDS: NEURONTIN PO SCH ×2 (16:18→21:50)
[2017-05-21] MEDS: HUMULIN R SUBCUT PRN ×2 (18:11→22:08)
[2017-05-21] MEDS: DUONEB NEB SCH (18:15)
[2017-05-21 18:59] LABS: TROPONIN I 0.022 ng/ml (0.0000-0.4000)
[2017-05-21] MEDS ORDERED: ROCEPHIN 1 GM in SODIUM CHLORIDE 50 ML IV STA (19:36)
[2017-05-21] MEDS ORDERED: ZYLOPRIM PO SCH (21:00)
[2017-05-21] MEDS ORDERED: K-DUR PO SCH (21:00)
[2017-05-21] MEDS ORDERED: ROCEPHIN ONE (21:41)
[2017-05-21] MEDS ORDERED: LASIX TAB ONE (21:41)
[2017-05-21] MEDS: SOLU-MEDROL 125 MG IVP SCH (21:46)
[2017-05-21] MEDS: LASIX TAB PO SCH (21:49)
[2017-05-21] MEDS: PRAMIPEXOLE DI HCL 0.5 MG PO SCH (21:50)
[2017-05-21] MEDS: COREG PO SCH (21:51)
[2017-05-22] MEDS: DUONEB NEB SCH ×5 (00:05→23:00)
[2017-05-22 03:02] LABS: BASOPHILS % (AUTO) 0.1 % (0.0-3.0); HEMATOCRIT 41.3 % (42.0-52.0); HEMOGLOBIN 14.2 g/dl (14.0-18.0); IMMATURE GRANULOCYTE % (AUTO) 0.4 % (0.0-5.0); LYMPHOCYTES # (AUTO) 0.7 K/uL (0.60-3.4); MEAN CORPUSCULAR HEMOGLOBIN 30.2 pg (27.0-31.0); MEAN CORPUSCULAR HGB CONC 34.4 (31.8-35.4); MEAN CORPUSCULAR VOLUME 87.9 fl (80.0-94.0); MONOCYTES # (AUTO) 0.1 K/uL (0.4-2.0); MONOCYTES % (AUTO) 0.9 (0-10); NEUTROPHILS # (AUTO) 6.7 K/ul (2.0-6.9); NEUTROPHILS % (AUTO) 89.6; PLATELET COUNT 230 10^3/uL (140-440); WHITE BLOOD COUNT 7.52 K/ul (4.2-10.2)
[2017-05-22 03:33] LABS: ALBUMIN 3.4 g/dL (3.4-5.0); ALBUMIN/GLOBULIN RATIO 1.06; ANION GAP 18.5; BILIRUBIN,TOTAL 0.33 mg/dL (0.00-1.20); BUN/CREATININE RATIO 16.66; CALCIUM 8.7 mg/dL (8.2-10.2); CREATININE 1.26 mg/dL (0.60-1.10); POTASSIUM 4.5 mmol/L (3.5-5.1); TOTAL PROTEIN 6.6 g/dL (5.8-8.1)
[2017-05-22 03:39] LABS: TROPONIN I 0.019 ng/ml (0.0000-0.4000)
[2017-05-22] MEDS: SODIUM CHLORIDE 1,000 ML IV SCH ×2 (04:17→17:03)
[2017-05-22] MEDS ORDERED: SYNTHROID PO SCH (06:30)
[2017-05-22] MEDS: HUMULIN R SUBCUT PRN ×4 (06:35→23:18)
[2017-05-22] MEDS: LANOXIN PO SCH (10:06)
[2017-05-22] MEDS: PRAMIPEXOLE DI HCL 0.5 MG PO SCH ×3 (10:07→21:44)
[2017-05-22] MEDS: NEURONTIN PO SCH ×4 (10:07→21:43)
[2017-05-22] MEDS: ZESTRIL PO SCH (10:07)
[2017-05-22] MEDS: COREG PO SCH ×3 (10:07→17:03)
[2017-05-22] MEDS: CORDARONE PO SCH (10:08)
[2017-05-22] MEDS: LASIX TAB PO SCH ×3 (10:09→16:57)
[2017-05-22] MEDS: ASPIRIN CHEWABLE PO SCH (10:09)
[2017-05-22] MEDS: SOLU-MEDROL 125 MG IVP SCH (10:10)
[2017-05-22] MEDS: NON-FORMULARY MEDICATION (Solifenacin Succinate [Vesicare] 10 MG) PO SCH ×22 (10:16)
[2017-05-22] MEDS ORDERED: ALLOPURINOL 300 MG PO SCH (21:00)
[2017-05-22] MEDS ORDERED: K-DUR PO SCH (21:00)
[2017-05-22] MEDS ORDERED: ROCEPHIN 1 GM in SODIUM CHLORIDE 50 ML IV SCH (21:00)
[2017-05-22] MEDS ORDERED: ROCEPHIN ONE (21:31)
[2017-05-22] MEDS: LANTUS SUBCUT SCH ×2 (21:46→22:03)
[2017-05-23] MEDS: DUONEB NEB SCH ×3 (05:04→17:00)
[2017-05-23 05:19] LABS: BASOPHILS % (AUTO) 0.1 % (0.0-3.0); HEMATOCRIT 38.8 % (42.0-52.0); HEMOGLOBIN 13.3 g/dl (14.0-18.0); LYMPHOCYTES # (AUTO) 0.9 K/uL (0.60-3.4); LYMPHOCYTES % (AUTO) 6.5 (10.0-50.0); MEAN CORPUSCULAR HEMOGLOBIN 30.2 pg (27.0-31.0); MEAN CORPUSCULAR HGB CONC 34.3 (31.8-35.4); MONOCYTES # (AUTO) 0.6 K/uL (0.4-2.0); MONOCYTES % (AUTO) 4.3 (0-10); NEUTROPHILS % (AUTO) 88.1; PLATELET COUNT 232 10^3/uL (140-440); RED BLOOD COUNT 4.41 10^6/ul (4.70-6.10); WHITE BLOOD COUNT 13.64 K/ul (4.2-10.2)
[2017-05-23] MEDS: SODIUM CHLORIDE 1,000 ML IV SCH (05:35)
[2017-05-23 05:47] LABS: ALBUMIN 3.5 g/dL (3.4-5.0); ALBUMIN/GLOBULIN RATIO 1.3; ANION GAP 15.2; BILIRUBIN,TOTAL 0.35 mg/dL (0.00-1.20); BUN/CREATININE RATIO 24.78; CALCIUM 8.1 mg/dL (8.2-10.2); CREATININE 1.17 mg/dL (0.60-1.10); POTASSIUM 4.2 mmol/L (3.5-5.1); TOTAL PROTEIN 6.2 g/dL (5.8-8.1)
[2017-05-23] MEDS: LASIX TAB PO SCH (06:15)
[2017-05-23] MEDS ORDERED: SYNTHROID PO SCH (06:30)
[2017-05-23] MEDS: PREDNISONE PO SCH ×2 (08:10→17:41)
[2017-05-23] MEDS: ZESTRIL PO SCH (08:10)
[2017-05-23] MEDS: ASPIRIN CHEWABLE PO SCH (08:10)
[2017-05-23] MEDS: COREG PO SCH ×2 (08:11→17:41)
[2017-05-23] MEDS: CORDARONE PO SCH (08:11)
[2017-05-23] MEDS: NEURONTIN PO SCH ×2 (08:11→15:19)
[2017-05-23] MEDS: PRAMIPEXOLE DI HCL 0.5 MG PO SCH (08:11)
[2017-05-23] MEDS: NON-FORMULARY MEDICATION (Solifenacin Succinate [Vesicare] 10 MG) PO SCH ×44 (08:14→08:47)
[2017-05-23] MEDS: LANOXIN PO SCH (08:17)
[2017-05-23] MEDS: HUMULIN R SUBCUT PRN (11:11)
--- NOTE | 2017-05-23 12:01 | RS.BEDDYS ---
Subjective Number of treatment sessions: 1 Date of Evaluation: 05/23/17 Treatment Diagnosis: SOB, high BP Current Level of Function: This 77 year old male was referred for skilled ST due to reports of swallowing difficulty with meals. Pt has a hx of swallowing difficulty due to esophageal problems. Pt had esophagus stretched 2x, with the last surgery approximately 3 years ago. He reports the surgery was not successful. Pt currently compensates for swallowing difficulty in the home environment with soft diet and meal pacing. Pt also reports utilizing a straw with liquids due to limitation with ROM in neck. Current Diet: Regular with thin liquids. Current Subjective/complaints:: Pt reported prolonged mastication with dry textures, and meat textures. He stated he has to chew food to a fine texture before swallowing and he needs alot of liquids to help. He demonstrates and verbalizes adequate awareness with swallowing difficulty. Pt consumes soft textures and grinds meat in the home environment. Pt also reports moderate severe dry mouth that affects him daily. Pt states he primarily utilizes a straw with thin liquids and occasionally coughs with thin liquids. Medical History Comments:: COPD, HTN, DM1, CAD, anxiety, hypothyroid, Hx of TIAs , Luck palsy. Hx Home Medications: Refer to medications for complete current list. Patient's Goals: To consume safest and least restrictive diet texture. General Information - General Denture Type: Full- Upper & Lower Patient Orientation: Person, Place, Time, Situation Ability to Follow Directions: Excellent - Voice Voice Quality: Harsh Oral-Facial Assessment - Face Facial Symmetry: Symmetrical Facial Movement: Controlled - Dental/Labial Mouth Occlusion: Normal Lip Protrusion: Normal Lip Retraction: Normal - Lingual Protrusion: Normal Retraction: Normal Tip Lateralization: Normal Repeated Tip Lateralization: Normal Comments: Lingual surface is dry. Food Presentation - Solids Food Presented: Mechanical Soft (prolonged mastication) - Liquids Liquid Presented: Thin (Via straw. No overt s/s of aspiration.) - Recommendations: Dysphagia Evaluation Dietary Recommendations: Dysphagia Mechanical Soft Dysphagia Swallow Precautions/Strategies: Sitting Upright (90 deg), Liquids from Straw, Small Bites and Sips, Alternate Liquids/Solids - Summary Dysphagia Evaluation Summary: Pt with oral dysphagia characterized by prolonged mastication and difficulty with rotary chew. Mild difficulty with bolus formation and bolus transfer, which improves with liquid wash. Pt had no overt s /s of aspiration. Prior hx of esophageal problems, may attribute to residue build-up mid-meal or end of meal, causing some coughing or throat clearing with food textures. DIRECT CARE SPECIALIST recommends mechanical soft diet texture with thin liquids via straw. Pt to follow safe swallow precautions, utilize bite/solid alteration , and incorporate pacing with meals. Further Therapy Indicated?: No Functional Reporting G Codes: Current CJ Goal CJ Discharge CJ Severity Impairment Rationale: Pt on mechanical soft diet texture with thin liquids. Plan Duration of Treatment: One Time Treatment Anticipated Discharge Destination: Home
--- NOTE | 2017-05-23 12:51 | US ---
EXAM: Ultrasound venous Doppler right and left lower extermity HISTORY: Swelling to both lower extremities COMPARISON: 03/09/2016 TECHNIQUE: Venous duplex ultrasound of the right and left lower extremity was performed using color , dillard-scale, and Doppler flow imaging. FINDINGS: There is normal color flow and compression of the right and left common femoral, greater saphenous, profunda femoral, femoral, popliteal, peroneal, posterior tibial, and anterior tibial vei ns without evidence of intraluminal thrombus. No reflux is identified. IMPRESSION: No right or left lower extremity deep venous thrombosis.
[2017-05-23 17:41] VITALS: BP 141/75; TEMP 97.4
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
--- NOTE | 2017-07-05 13:34 | PN ---
DATE OF SERVICE: 05/22/17 CHIEF COMPLAINT: "I was short of breath" SUBJECTIVE: Mr. Leonard has chronic respiratory failure and is advised to use his oxygen regularly; something that he doesn't do regularly. He has COPD and continues to even occasionally smoke. He has systolic and diastolic failure of a chronic nature with occasional acute exacerbation. He presented to the ER with sudden onset of shortness of breath and elevated D-dimer; he had negative scan of his leg for clot. A CT angiogram showed no PE. His chest x-ray was negative; he was felt to maybe have a COPD exacerbation and was admitted for steroids and etc. He was feeling better when I saw him later that evening and wanted to go home; he agreed to at least stay a couple of days. He feels better today. OBJECTIVE: V/S: Temperature 98.8, pulse 76, respiratory rate 20, blood pressure 140/78. CHEST: Defused with scattered crackles and wheeze. CARDIOVASCULAR: Regular distant without murmur. GI: Nontender EXTREMITIES: 1+ brawny lower extremity edema. LABS/X-RAYS: Chemistry showed a slight down GFR from 81 to 55; no other pattern. Hematology shows 7.52 WBC versus 6.29 hgb 14.2 versus 13.6. ASSESSMENT: # Acute shortness of breath # COPD exacerbation # COPD # Congestive heart failure-diastolic chronic # Congestive heart failure-systolic chronic # Acute renal injury-slight drop in EGFR # Hyperglycemia-related to steroids # Type 2 Diabetes # Poor compliance PLAN: He wants to go home so badly we are going to try to start weaning for possible discharge tomorrow; we need to recheck labs tomorrow. SILVIA
== END 2017-05-23 17:27 | disposition home or self-care (01) ==
LOC: ED 08:37 → MEDSURG A 12:55
PROVIDERS: ADMIT Family Medicine; ATTEND Family Medicine
DX: J44.1 Chronic obstructive pulmonary disease with (acute) exacerbation (principal); R06.02 Shortness of breath; I50.42 Chronic combined systolic (congestive) and diastolic (congestive) heart failure; R79.1 Abnormal coagulation profile; E11.65 Type 2 diabetes mellitus with hyperglycemia; N17.9 Acute kidney failure, unspecified; J96.11 Chronic respiratory failure with hypoxia; R60.0 Localized edema; R13.11 Dysphagia, oral phase; F17.200 Nicotine dependence, unspecified, uncomplicated; Z91.19 Patient's noncompliance with other medical treatment and regimen; Z79.4 Long term (current) use of insulin
CPT/HCPCS: 36415; 80053; 80162; 81001; 82550; 82803; 82962; 84484; 85025; 85379; 93005; 93010; 94640; 96372; 96374; 97802; 99284

== ENCOUNTER 2017-06-01 13:41 | Inpatient (IN) | payer OTHER ==
[2017-06-01] MEDS ORDERED: DUONEB NEB STA ×2 (13:43→15:08)
[2017-06-01 13:48] LABS: ABG PH 7.352 (7.35-7.45)
[2017-06-01 13:49] LABS: ABG PCO2 64.1 mmHg (35-45)
[2017-06-01 13:50] LABS: ABG BASE EXCESS 10 (-2.0-2.0); ABG HCO3 35.5 (22.0-26.0); ABG TCO2 37 (22.0-28.0)
[2017-06-01] MEDS ORDERED: SOLU-MEDROL 125 MG IVP STA (13:50)
--- NOTE | 2017-06-01 14:13 | DI ---
EXAM: CHEST FRONTAL VIEW HISTORY: Shortness of breath. COMPARISON: 05/21/2017 FINDINGS: Cardiomegaly and general mediastinal contour are unchanged. Pacemaker unit appears stabl e. Mild density in the right lower lung partially obscuring the right cardiac border is new or sign ificantly increased since previous exam. There is no active vascular congestion, visible pleural fl uid or pneumothorax. IMPRESSION: Density in the right base suggesting possible pneumonia.
[2017-06-01 14:24] LABS: BASOPHILS % (AUTO) 0.4 % (0.0-3.0); EOSINOPHILS # (AUTO) 0.3 K/ul (0.0-0.7); EOSINOPHILS % (AUTO) 3.1 % (0.0-7.0); HEMATOCRIT 43.2 % (42.0-52.0); HEMOGLOBIN 14.3 g/dl (14.0-18.0); IMMATURE GRANULOCYTE % (AUTO) 0.4 % (0.0-5.0); LYMPHOCYTES # (AUTO) 1.4 K/uL (0.60-3.4); LYMPHOCYTES % (AUTO) 17.7 (10.0-50.0); MEAN CORPUSCULAR HEMOGLOBIN 30.4 pg (27.0-31.0); MEAN CORPUSCULAR HGB CONC 33.1 (31.8-35.4); MEAN CORPUSCULAR VOLUME 91.7 fl (80.0-94.0); MONOCYTES # (AUTO) 0.8 K/uL (0.4-2.0); MONOCYTES % (AUTO) 9.4 (0-10); NEUTROPHILS # (AUTO) 5.6 K/ul (2.0-6.9); PLATELET COUNT 213 10^3/uL (140-440); RED BLOOD COUNT 4.71 10^6/ul (4.70-6.10); WHITE BLOOD COUNT 8.15 K/ul (4.2-10.2)
[2017-06-01 14:28] LABS: ALBUMIN 3.7 g/dL (3.4-5.0); ALBUMIN/GLOBULIN RATIO 1.37; ANION GAP 12.3; BILIRUBIN,TOTAL 0.56 mg/dL (0.00-1.20); CALCIUM 8.9 mg/dL (8.2-10.2); POTASSIUM 4.3 mmol/L (3.5-5.1); TOTAL PROTEIN 6.4 g/dL (5.8-8.1)
[2017-06-01 14:29] LABS: BUN/CREATININE RATIO 12.76; CREATININE 0.94 mg/dL (0.60-1.10)
[2017-06-01 14:36] LABS: TROPONIN I 0.028 ng/ml (0.0000-0.4000)
[2017-06-01] MEDS ORDERED: ROCEPHIN 1 GM in SODIUM CHLORIDE 50 ML IV STA (15:08)
--- NOTE | 2017-06-01 15:10 | ED.PDOC ---
General ED Provider: Dr. LILA GARCIA Chief Complaint: Shortness of Air Stated Complaint: shortness of breath Time Seen by Physician: 13:41 Mode of Arrival: Wheelchair Information Source: Patient Exam Limitations: No limitations Primary Care Provider: FUNMI CISSE Nursing and Triage Documentation Reviewed and Agree: Yes Respiratory Complaint Exam - Respiratory Complaint/Exam Onset/Duration: today has been off his home oxygen Symptoms Are: Still present Timing: Constant Initial Severity: Moderate Current Severity: Moderate Location: Throat Character: Reports: Non-productive cough Aggravating: Reports: None Alleviating: Reports: Spontaneous resolution Associated Signs and Symptoms: Reports: Rapid breathing, Dyspnea, Fever, Chills , Wheezing. Denies: Chest pain, Pleuritic chest pain, Hemoptysis, Dizziness, Calf pain, Calf swelling, Edema, URI, Nasal congestion, Hoarseness, Sinus discomfort, Vomiting, Sore throat, Weight loss, Decreased oral intake, Increased thirst, Increased appetite, Increased urination Related History: Reports: Similar episode History of Healthcare-Acquired Pneumonia: Admit w/in last 30 days Related Surgical History: Reports: None Pulmonary Embolism Risk Factors: Bedrest Cardiac Risk Factors: Reports: Hypertension Pseudomonas Risk Factors: Reports: Chronic steriod use Tuberculosis Risk Factors: Reports: Chronic Resp. Faliure Status Asthmaticus Risk Factors: Reports: None Home Oxygen Use: Yes Recent Stress Test: No Recent Echo/LV Function: No Current Antibiotic Use: No Current Asthma Medication Use: No Respiratory Distress: None Inadequate Respiratory Effort: No Dysphagia Present: No Stridor Present: No JVD Present: No Retractions: Not Present Diminished Breath Sounds: Yes Prolonged Respiration: Inspiratory phase Sinus Tenderness: None Differential Diagnoses: CHF, Pulmonary Edema, COPD Exacerbation, Pneumonia, Bronchitis, Lower Resp. Infection Review of Systems - Review Of Systems Constitutional: Reports: Malaise, Weakness Eyes: Reports: No symptoms Ears, Nose, Mouth, Throat: Reports: No symptoms Respiratory: Reports: Cough, Wheezing Cardiac: Reports: No symptoms GI: Reports: No symptoms : Reports: No symptoms Musculoskeletal: Reports: No symptoms Skin: Reports: No symptoms Neurological: Reports: No symptoms Endocrine: Reports: No symptoms Hematologic/Lymphatic: Reports: No symptoms All Other Systems: Reviewed and Negative Past Medical History - Past Medical History Previously Healthy: Yes Endocrine: Reports: DM 1 (MEDS), Hypothyroid, Other (GOUT-MEDS) Cardiovascular: Reports: CAD, Hypertension, CHF (MEDS), A-Fib Respiratory: Reports: COPD (MEDS) Hematological: Reports: None Gastrointestinal: Reports: None Genitourinary: Reports: Other (PROSTATISM) Neuro/Psych: Reports: Anxiety Musculoskeletal: Reports: None Cancer: Reports: None Other Pertinent Past Medical History: HERNIA,BACK,NECK,STOMACH defib htn dm copd cad - Surgical History General Surgical History: Reports: Pacemaker (DEFIB), Orthopedic (NECK), Back Surgery, Other (hernia repair,STOMACH SX AAA, prostate ercp scheduled for reevaluation), Unknown (stomach surgery) - Family History Family History: Reports: None - Social History Smoking Status: Current every day smoker, Heavy tobacco smoker Hx Substance Use: No Alcohol Screening: None Physical Exam - Physical Exam Appearance: Ill-appearing Ill-appearing: Mild Pain Distress: Mild Eyes: SHLOMO, EOMI, Conjunctiva clear ENT: Ears normal, Nose normal, Oropharynx normal Respiratory: Breath sounds diminished, Wheezes Cardiovascular: RRR, Pulses normal, No rub, No murmur GI/: Soft, Nontender, No masses, Bowel sounds normal, No Organomegaly Musculoskeletal: Normal strength, ROM intact, No edema, No calf tenderness Skin: Warm, Dry, Normal color Neurological: Sensation intact, Motor intact, Reflexes intact, Cranial nerves intact, Alert, Oriented Psychiatric: Affect appropriate, Mood appropriate Critical Care Note - Critical Care Note Total Time (mins): 0 Course - Course Hematology/Chemistry: 06/01/17 13:55 06/01/17 13:55 Orders, Labs, Meds: Lab Review 06/01/17 06/01/17 13:46 13:55 WBC 8.15 RBC 4.71 Hgb 14.3 Hct 43.2 MCV 91.7 MCH 30.4 MCHC 33.1 RDW Coeff of Christine 13.7 Plt Count 213 Immature Gran % (Auto) 0.4 Neut % (Auto) 69.0 Lymph % (Auto) 17.7 [place] % (Auto) 9.4 Eos % (Auto) 3.1 Baso % (Auto) 0.4 Immature Gran # (Auto) 0.0 Neut # 5.6 Lymph # 1.4 [place] # 0.8 Eos # 0.3 Baso # 0.0 Puncture Site R rad O2 Saturation 79.0 L ABG pH 7.352 ABG pCO2 64.1 H ABG pO2 48.0 L* ABG HCO3 35.5 H ABG Total CO2 37 H ABG Base Excess 10 H Arley Test + FiO2 % 21.0 Sodium 139 Potassium 4.3 Chloride 97 L Carbon Dioxide 34 H Anion Gap 12.3 BUN 12 Creatinine 0.94 Estimated GFR (MDRD) 78.00 BUN/Creatinine Ratio 12.76 Glucose 102 Lactic Acid 5.1 Calcium 8.9 Total Bilirubin 0.56 AST 17 ALT 25 Alkaline Phosphatase 76 Total Creatine Kinase 89 Troponin I 0.0280 Total Protein 6.4 Albumin 3.7 Globulin 2.7 Albumin/Globulin Ratio 1.37 Procalcitonin < 0.05 Orders Category Date Time Status ABG DRAW REQUEST Stat CARDIO 06/01/17 13:46 Completed EKG-(ED ONLY) Stat CARDIO 06/01/17 13:42 Completed NEBULIZER TREATMENT Stat CARDIO 06/01/17 13:43 Completed NEBULIZER TREATMENT Stat CARDIO 06/01/17 15:09 Completed ED IV/MEDIPORT/POWERPORT .ONCE EMERGENCY 06/01/17 13:42 Active ABG Stat LAB 06/01/17 13:46 Completed BLOOD CULTURE Stat LAB 06/01/17 13:55 Received CBC W/ AUTO DIFF Stat LAB 06/01/17 13:55 Completed COMPREHENSIVE METABOLIC PANEL Stat LAB 06/01/17 13:55 Completed CREATINE KINASE Stat LAB 06/01/17 13:55 Completed LACTIC ACID Stat LAB 06/01/17 13:55 Completed PROCALCITONIN Stat LAB 06/01/17 13:55 Completed TROPONIN I Stat LAB 06/01/17 13:55 Completed URINALYSIS C & S IF INDICATED Stat LAB 06/01/17 13:45 Uncollected 0.9 % Sodium Chloride [Saline Flush] MEDS 06/01/17 13:41 Active 1 syr IVF PRN PRN Ceftriaxone Sodium [Rocephin] MEDS 06/01/17 15:14 Discontinued 1 gm .ROUTE .STK-MED ONE Ceftriaxone Sodium [Rocephin] 1 gm MEDS 06/01/17 15:08 Discontinued 0.9 % Sodium Chloride [Sodium Chloride] 50 ml IV ONCE Ipratropium/Albuterol Neb [Duoneb] MEDS 06/01/17 13:43 Discontinued 1 vial NEB ONCE STA Ipratropium/Albuterol Neb [Duoneb] MEDS 06/01/17 15:08 Discontinued 1 vial NEB ONCE STA Methylprednisolone Sod Succ/Pf [Solu-Medrol 125 mg] MEDS 06/01/17 13:50 Discontinued 125 mg IVP ONCE STA CHEST, 1V AP ONLY Stat RADS 06/01/17 13:42 Completed Medications Generic Name Dose Route Start Last Admin Trade Name Freq PRN Reason Stop Dose Admin Sodium Chloride 1 syr 06/01/17 13:41 06/01/17 13:57 Saline Flush IVF 1 syr PRN PRN Administration To flush IV Discontinued Medications Generic Name Dose Route Start Last Admin Trade Name Freq PRN Reason Stop Dose Admin Albuterol/Ipratropium 1 vial 06/01/17 13:43 06/01/17 13:48 Duoneb NEB 06/01/17 13:44 1 vial ONCE STA Administration Albuterol/Ipratropium 1 vial 06/01/17 15:08 06/01/17 15:26 Duoneb NEB 06/01/17 15:09 1 vial ONCE STA Administration Ceftriaxone Sodium 1 gm/ 50 mls @ 75 mls/hr 06/01/17 15:08 06/01/17 15:23 Sodium Chloride IV 06/01/17 15:47 75 mls/hr ONCE STA Administration Methylprednisolone Sodium Succinate 125 mg 06/01/17 13:50 06/01/17 13:57 Solu-Medrol 125 Mg IVP 06/01/17 13:51 125 mg ONCE STA Administration Vital Signs: Temp Pulse Resp BP Pulse Ox 06/01/17 13:41 101.4 F H 75 28 H 170/92 H 86 L Departure - Departure Time of Disposition: 16:31 Disposition: ADMITTED INPATIENT Discharge Problem: Pneumonia, COPD exacerbation Instructions: COPD (Chronic Obstructive Pulmonary Disease) (ED) Condition: Good Pt referred to PMD for follow-up: Yes (admitt) Allergies/Adverse Reactions: Allergies Penicillins Adverse Reaction (Intermediate, Verified 06/01/17 13:45) UNKNOWN Home Medications: Ambulatory Orders Potassium Chloride [K-Dur] 20 meq PO BEDTIME 04/11/13 Lisinopril 5 mg PO DAILY 03/09/16 Albuterol Sulfate 0.083% Neb [Albuterol 0.083% Neb] 1 vial NEB Q6H PRN 03/21/17 Albuterol Sulfate [Proair Hfa] 2 puff IH Q6H #1 05/23/17 Allopurinol [Zyloprim] 300 mg PO BEDTIME #1 05/23/17 Amiodarone HCl [Cordarone] 200 mg PO DAILY #1 tablet 05/23/17 Aspirin [Aspirin Chewable] 81 mg PO DAILY #1 05/23/17 Carvedilol [Coreg] 6.25 mg PO BID #1 05/23/17 Clonidine HCl [Catapres] 0.1 mg PO BEDTIME PRN #1 05/23/17 Digoxin [Lanoxin] 125 mcg PO DAILY #1 05/23/17 Furosemide [Lasix Tab] 40 mg PO BID #1 05/23/17 Gabapentin [Neurontin] 300 mg PO TID #1 05/23/17 Glipizide 5 mg PO BID #1 05/23/17 Hydrocodone/Acetaminophen [[place] 5-325 Tablet] 1 each PO Q6HR PRN #1 05/23/17 Insulin Glargine,Hum.rec.anlog [Lantus] 15 units PO BEDTIME #1 05/23/17 Insulin Regular, Human [Humulin R] 8 unit SUBCUT TID #1 05/23/17 Levothyroxine Sodium [Synthroid] 75 mcg PO QDAC #1 05/23/17 Nitroglycerin [Nitrostat] 0.4 mg SL PRN PRN #1 05/23/17 Pramipexole Di-HCl [Pramipexole ER] 0.5 mg PO BID #1 05/23/17 Prednisone 20 mg PO DAILYWM #5 tablet 05/23/17 Silver Sulfadiazine [Silvadene Cream] 1 applic TP BID PRN #1 05/23/17 Solifenacin Succinate [Vesicare] 10 mg PO DAILY #1 05/23/17 Tiotropium [place] [Spiriva] 1 cap IH DAILY #1 05/23/17 Disposition Discussed With: Patient
[2017-06-01] MEDS ORDERED: ROCEPHIN ONE (15:14)
[2017-06-01] MEDS ORDERED: HUMULIN R SUBCUT PRN (16:40)
[2017-06-01 17:20] VITALS: BMI 28.7
[2017-06-01] MEDS ORDERED: NITROSTAT SL PRN (17:21)
[2017-06-01] MEDS: SODIUM CHLORIDE 1,000 ML IV SCH (17:29)
[2017-06-01] MEDS ORDERED: HUMULIN R ONE (20:50)
[2017-06-01] MEDS ORDERED: HUMULIN R SUBCUT SCH (21:00)
[2017-06-01] MEDS: LASIX TAB PO SCH (21:00)
[2017-06-01] MEDS ORDERED: PRAMIPEXOLE DI HCL 0.5 MG PO SCH (21:00)
[2017-06-01] MEDS: COREG PO SCH (21:00)
[2017-06-01] MEDS: K-DUR PO SCH (21:00)
[2017-06-01] MEDS: NEURONTIN PO SCH (21:01)
[2017-06-01] MEDS: ZYLOPRIM PO SCH (21:01)
[2017-06-01 22:33] LABS: BILIRUBIN,URINE Negative (NEGATIVE); KETONES,URINE 1+ (NEGATIVE); LEUKOCYTE ESTERASE ,URINE Negative (NEGATIVE); NITRITE,URINE Negative (NEGATIVE); PROTEIN,URINE Trace (NEGATIVE); URINE, BLOOD Negative (NEGATIVE)
[2017-06-01 22:44] LABS: ADD URINE MICROSCOPIC YES
[2017-06-01 23:23] LABS: TROPONIN I 0.024 ng/ml (0.0000-0.4000)
[2017-06-02] MEDS: LASIX TAB PO SCH ×2 (06:41→17:15)
[2017-06-02] MEDS: SYNTHROID PO SCH (06:41)
[2017-06-02 06:47] LABS: BASOPHILS % (AUTO) 0.2 % (0.0-3.0); HEMATOCRIT 43.8 % (42.0-52.0); HEMOGLOBIN 14.5 g/dl (14.0-18.0); IMMATURE GRANULOCYTE % (AUTO) 0.5 % (0.0-5.0); LYMPHOCYTES # (AUTO) 0.7 K/uL (0.60-3.4); LYMPHOCYTES % (AUTO) 12.2 (10.0-50.0); MEAN CORPUSCULAR HEMOGLOBIN 30.1 pg (27.0-31.0); MEAN CORPUSCULAR HGB CONC 33.1 (31.8-35.4); MEAN CORPUSCULAR VOLUME 90.9 fl (80.0-94.0); MONOCYTES # (AUTO) 0.1 K/uL (0.4-2.0); MONOCYTES % (AUTO) 1.6 (0-10); NEUTROPHILS # (AUTO) 4.7 K/ul (2.0-6.9); NEUTROPHILS % (AUTO) 85.5; PLATELET COUNT 219 10^3/uL (140-440); RED BLOOD COUNT 4.82 10^6/ul (4.70-6.10); WHITE BLOOD COUNT 5.49 K/ul (4.2-10.2)
[2017-06-02 07:08] LABS: ALBUMIN 3.6 g/dL (3.4-5.0); ALBUMIN/GLOBULIN RATIO 1.24; ANION GAP 13.6; BILIRUBIN,TOTAL 0.5 mg/dL (0.00-1.20); BUN/CREATININE RATIO 16.82; CREATININE 1.07 mg/dL (0.60-1.10); POTASSIUM 4.6 mmol/L (3.5-5.1); TOTAL PROTEIN 6.5 g/dL (5.8-8.1)
[2017-06-02 07:14] LABS: TROPONIN I 0.027 ng/ml (0.0000-0.4000)
[2017-06-02] MEDS: HUMULIN R SUBCUT SCH ×3 (08:46→17:16)
[2017-06-02] MEDS: ASPIRIN CHEWABLE PO SCH (08:46)
[2017-06-02] MEDS: MIRAPEX PO SCH ×2 (08:47→21:00)
[2017-06-02] MEDS: VESICARE PO SCH (08:47)
[2017-06-02] MEDS: ZESTRIL PO SCH (08:47)
[2017-06-02] MEDS: LANOXIN PO SCH (08:47)
[2017-06-02] MEDS: COREG PO SCH ×2 (08:48→17:15)
[2017-06-02] MEDS: NEURONTIN PO SCH ×3 (08:48→21:00)
[2017-06-02] MEDS: CORDARONE PO SCH (08:49)
[2017-06-02] MEDS ORDERED: NON-FORMULARY MEDICATION (Solifenacin Succinate [Vesicare] 10 MG) PO SCH ×22 (09:00)
[2017-06-02] MEDS: SPIRIVA IH SCH (10:04)
[2017-06-02] MEDS: SODIUM CHLORIDE 1,000 ML IV SCH (10:18)
[2017-06-02] MEDS: DUONEB NEB SCH ×2 (16:45→19:06)
[2017-06-02] MEDS ORDERED: ROCEPHIN ONE (18:57)
[2017-06-02] MEDS: ROCEPHIN 1 GM in SODIUM CHLORIDE 50 ML IV SCH (19:00)
[2017-06-02] MEDS: SOLU-MEDROL 40 MG IVP SCH (21:01)
[2017-06-02] MEDS: ZYLOPRIM PO SCH (21:01)
[2017-06-02] MEDS: K-DUR PO SCH (21:01)
[2017-06-02] MEDS: LANTUS SUBCUT SCH (21:02)
[2017-06-02] MEDS: HUMULIN R SUBCUT PRN (21:03)
[2017-06-03] MEDS: SOLU-MEDROL 40 MG IVP SCH ×3 (04:32→20:33)
[2017-06-03 04:49] LABS: BASOPHILS % (AUTO) 0.1 % (0.0-3.0); HEMATOCRIT 39.6 % (42.0-52.0); HEMOGLOBIN 13.3 g/dl (14.0-18.0); IMMATURE GRANULOCYTE % (AUTO) 0.8 % (0.0-5.0); LYMPHOCYTES # (AUTO) 0.6 K/uL (0.60-3.4); LYMPHOCYTES % (AUTO) 5.2 (10.0-50.0); MEAN CORPUSCULAR HEMOGLOBIN 30.2 pg (27.0-31.0); MEAN CORPUSCULAR HGB CONC 33.6 (31.8-35.4); MEAN CORPUSCULAR VOLUME 89.8 fl (80.0-94.0); MONOCYTES # (AUTO) 0.1 K/uL (0.4-2.0); NEUTROPHILS # (AUTO) 10.4 K/ul (2.0-6.9); NEUTROPHILS % (AUTO) 92.9; PLATELET COUNT 199 10^3/uL (140-440); RED BLOOD COUNT 4.41 10^6/ul (4.70-6.10); WHITE BLOOD COUNT 11.22 K/ul (4.2-10.2)
[2017-06-03 05:05] LABS: ALBUMIN 3.5 g/dL (3.4-5.0); ALBUMIN/GLOBULIN RATIO 1.4; ANION GAP 14.3; BILIRUBIN,TOTAL 0.37 mg/dL (0.00-1.20); BUN/CREATININE RATIO 22.72; CALCIUM 8.6 mg/dL (8.2-10.2); CREATININE 1.1 mg/dL (0.60-1.10); POTASSIUM 4.3 mmol/L (3.5-5.1)
[2017-06-03] MEDS: DUONEB NEB SCH ×4 (05:10→20:24)
[2017-06-03] MEDS: HUMULIN R SUBCUT PRN ×4 (05:49→20:39)
[2017-06-03] MEDS: LASIX TAB PO SCH ×2 (05:49→17:26)
[2017-06-03] MEDS: SYNTHROID PO SCH (05:49)
[2017-06-03] MEDS: ROCEPHIN 1 GM in SODIUM CHLORIDE 50 ML IV SCH (08:41)
[2017-06-03] MEDS: CORDARONE PO SCH (08:42)
[2017-06-03] MEDS: COREG PO SCH ×2 (08:42→17:26)
[2017-06-03] MEDS: HUMULIN R SUBCUT SCH ×3 (08:42→17:23)
[2017-06-03] MEDS: ZESTRIL PO SCH (08:43)
[2017-06-03] MEDS: ASPIRIN CHEWABLE PO SCH (08:43)
[2017-06-03] MEDS: VESICARE PO SCH (08:43)
[2017-06-03] MEDS: MIRAPEX PO SCH ×2 (08:43→20:36)
[2017-06-03] MEDS: NEURONTIN PO SCH ×3 (08:43→20:36)
[2017-06-03] MEDS: LANOXIN PO SCH (08:43)
[2017-06-03] MEDS: SPIRIVA IH SCH (08:44)
[2017-06-03] MEDS ORDERED: ATIVAN PO PRN (15:45)
[2017-06-03] MEDS: ZYLOPRIM PO SCH (20:36)
[2017-06-03] MEDS: K-DUR PO SCH (20:37)
[2017-06-03] MEDS: LANTUS SUBCUT SCH (20:38)
[2017-06-04] MEDS: SOLU-MEDROL 40 MG IVP SCH ×3 (04:02→20:40)
[2017-06-04 04:36] LABS: BASOPHILS % (AUTO) 0.1 % (0.0-3.0); HEMATOCRIT 41.3 % (42.0-52.0); HEMOGLOBIN 13.8 g/dl (14.0-18.0); IMMATURE GRANULOCYTE % (AUTO) 0.9 % (0.0-5.0); LYMPHOCYTES # (AUTO) 0.5 K/uL (0.60-3.4); LYMPHOCYTES % (AUTO) 3.8 (10.0-50.0); MEAN CORPUSCULAR HEMOGLOBIN 29.9 pg (27.0-31.0); MEAN CORPUSCULAR HGB CONC 33.4 (31.8-35.4); MEAN CORPUSCULAR VOLUME 89.6 fl (80.0-94.0); MONOCYTES # (AUTO) 0.2 K/uL (0.4-2.0); MONOCYTES % (AUTO) 1.4 (0-10); NEUTROPHILS # (AUTO) 11.8 K/ul (2.0-6.9); NEUTROPHILS % (AUTO) 93.8; PLATELET COUNT 210 10^3/uL (140-440); RED BLOOD COUNT 4.61 10^6/ul (4.70-6.10); WHITE BLOOD COUNT 12.58 K/ul (4.2-10.2)
[2017-06-04 04:59] LABS: ALBUMIN 3.4 g/dL (3.4-5.0); ALBUMIN/GLOBULIN RATIO 1.26; ANION GAP 15.1; BILIRUBIN,TOTAL 0.37 mg/dL (0.00-1.20); BUN/CREATININE RATIO 22.22; CALCIUM 8.8 mg/dL (8.2-10.2); CREATININE 1.17 mg/dL (0.60-1.10); POTASSIUM 4.1 mmol/L (3.5-5.1); TOTAL PROTEIN 6.1 g/dL (5.8-8.1)
[2017-06-04] MEDS: DUONEB NEB SCH ×4 (05:04→22:10)
[2017-06-04] MEDS: SYNTHROID PO SCH (05:59)
[2017-06-04] MEDS: LASIX TAB PO SCH ×2 (05:59→16:57)
[2017-06-04] MEDS: HUMULIN R SUBCUT PRN ×4 (06:00→21:20)
[2017-06-04] MEDS: ASPIRIN CHEWABLE PO SCH (08:00)
[2017-06-04] MEDS: COREG PO SCH ×2 (08:01→17:55)
[2017-06-04] MEDS: ROCEPHIN 1 GM in SODIUM CHLORIDE 50 ML IV SCH (09:12)
[2017-06-04] MEDS: LANOXIN PO SCH (09:13)
[2017-06-04] MEDS: NEURONTIN PO SCH ×3 (09:14→20:46)
[2017-06-04] MEDS: MIRAPEX PO SCH ×2 (09:14→20:46)
[2017-06-04] MEDS: ZESTRIL PO SCH (09:15)
[2017-06-04] MEDS: VESICARE PO SCH (09:15)
[2017-06-04] MEDS: CORDARONE PO SCH (09:15)
[2017-06-04] MEDS: HUMULIN R SUBCUT SCH ×3 (09:18→17:34)
[2017-06-04] MEDS: SPIRIVA IH SCH (09:18)
[2017-06-04] MEDS: LANTUS SUBCUT SCH ×2 (19:43→21:19)
[2017-06-04] MEDS: K-DUR PO SCH (20:46)
[2017-06-04] MEDS: ZYLOPRIM PO SCH (20:46)
[2017-06-05 04:12] LABS: BASOPHILS % (AUTO) 0.1 % (0.0-3.0); HEMATOCRIT 44.6 % (42.0-52.0); IMMATURE GRANULOCYTE % (AUTO) 1.1 % (0.0-5.0); LYMPHOCYTES # (AUTO) 0.5 K/uL (0.60-3.4); LYMPHOCYTES % (AUTO) 3.5 (10.0-50.0); MEAN CORPUSCULAR HEMOGLOBIN 30.4 pg (27.0-31.0); MEAN CORPUSCULAR HGB CONC 33.6 (31.8-35.4); MEAN CORPUSCULAR VOLUME 90.5 fl (80.0-94.0); MONOCYTES # (AUTO) 0.3 K/uL (0.4-2.0); MONOCYTES % (AUTO) 1.8 (0-10); NEUTROPHILS # (AUTO) 13.4 K/ul (2.0-6.9); NEUTROPHILS % (AUTO) 93.5; PLATELET COUNT 216 10^3/uL (140-440); RED BLOOD COUNT 4.93 10^6/ul (4.70-6.10); WHITE BLOOD COUNT 14.28 K/ul (4.2-10.2)
[2017-06-05] MEDS: SOLU-MEDROL 40 MG IVP SCH ×3 (04:21→21:10)
[2017-06-05 04:32] LABS: ALBUMIN 3.5 g/dL (3.4-5.0); ALBUMIN/GLOBULIN RATIO 1.4; ANION GAP 13.1; BILIRUBIN,TOTAL 0.67 mg/dL (0.00-1.20); BUN/CREATININE RATIO 25.89; CALCIUM 8.9 mg/dL (8.2-10.2); CREATININE 1.12 mg/dL (0.60-1.10); POTASSIUM 4.1 mmol/L (3.5-5.1)
[2017-06-05] MEDS: DUONEB NEB SCH ×4 (05:06→19:01)
[2017-06-05] MEDS: HUMULIN R SUBCUT PRN ×4 (05:30→21:20)
[2017-06-05] MEDS: LASIX TAB PO SCH ×2 (05:32→17:07)
[2017-06-05] MEDS: SYNTHROID PO SCH (05:33)
[2017-06-05] MEDS: ASPIRIN CHEWABLE PO SCH (08:14)
[2017-06-05] MEDS: COREG PO SCH ×2 (08:14→17:07)
[2017-06-05] MEDS: SPIRIVA IH SCH (08:15)
[2017-06-05] MEDS: LANOXIN PO SCH (08:15)
[2017-06-05] MEDS: NEURONTIN PO SCH ×3 (08:15→21:16)
[2017-06-05] MEDS: MIRAPEX PO SCH ×2 (08:15→21:17)
[2017-06-05] MEDS: CORDARONE PO SCH (08:16)
[2017-06-05] MEDS: VESICARE PO SCH (08:16)
[2017-06-05] MEDS: ROCEPHIN 1 GM in SODIUM CHLORIDE 50 ML IV SCH (08:16)
[2017-06-05] MEDS: HUMULIN R SUBCUT SCH ×3 (08:35→17:24)
[2017-06-05] MEDS: ZESTRIL PO SCH (09:25)
[2017-06-05] MEDS: LANTUS SUBCUT SCH (21:17)
[2017-06-05] MEDS: K-DUR PO SCH (21:17)
[2017-06-05] MEDS: ZYLOPRIM PO SCH (21:17)
[2017-06-06 04:43] LABS: BASOPHILS % (AUTO) 0.2 % (0.0-3.0); HEMOGLOBIN 15.7 g/dl (14.0-18.0); IMMATURE GRANULOCYTE % (AUTO) 1.2 % (0.0-5.0); LYMPHOCYTES # (AUTO) 0.5 K/uL (0.60-3.4); MEAN CORPUSCULAR HEMOGLOBIN 30.1 pg (27.0-31.0); MEAN CORPUSCULAR HGB CONC 33.4 (31.8-35.4); MONOCYTES # (AUTO) 0.3 K/uL (0.4-2.0); MONOCYTES % (AUTO) 2.5 (0-10); NEUTROPHILS % (AUTO) 92.1; PLATELET COUNT 230 10^3/uL (140-440); RED BLOOD COUNT 5.22 10^6/ul (4.70-6.10); WHITE BLOOD COUNT 11.94 K/ul (4.2-10.2)
[2017-06-06] MEDS: DUONEB NEB SCH ×3 (05:03→14:28)
[2017-06-06 05:05] LABS: ALBUMIN 3.6 g/dL (3.4-5.0); ALBUMIN/GLOBULIN RATIO 1.24; ANION GAP 15.3; BUN/CREATININE RATIO 29.56; CALCIUM 9.2 mg/dL (8.2-10.2); CREATININE 1.15 mg/dL (0.60-1.10); POTASSIUM 4.3 mmol/L (3.5-5.1); TOTAL PROTEIN 6.5 g/dL (5.8-8.1)
[2017-06-06] MEDS: LASIX TAB PO SCH ×2 (05:45→17:32)
[2017-06-06] MEDS: HUMULIN R SUBCUT PRN ×2 (05:46→11:32)
[2017-06-06] MEDS: SYNTHROID PO SCH (05:46)
[2017-06-06] MEDS: SPIRIVA IH SCH (08:02)
[2017-06-06] MEDS: MIRAPEX PO SCH (08:03)
[2017-06-06] MEDS: VESICARE PO SCH (08:03)
[2017-06-06] MEDS: LANOXIN PO SCH (08:03)
[2017-06-06] MEDS: ASPIRIN CHEWABLE PO SCH (08:03)
[2017-06-06] MEDS: ZESTRIL PO SCH (08:04)
[2017-06-06] MEDS: COREG PO SCH ×2 (08:04→17:32)
[2017-06-06] MEDS: NEURONTIN PO SCH ×2 (08:04→15:07)
[2017-06-06] MEDS: CORDARONE PO SCH (08:05)
[2017-06-06] MEDS: ROCEPHIN 1 GM in SODIUM CHLORIDE 50 ML IV SCH (08:05)
[2017-06-06] MEDS: HUMULIN R SUBCUT SCH ×3 (08:09→17:33)
[2017-06-06 09:54] VITALS: BP 119/67; TEMP 97.6
[2017-06-06] MEDS: SOLU-MEDROL 40 MG IVP SCH (09:57)
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
--- NOTE | 2017-07-05 14:55 | PN ---
DATE OF SERVICE: 06/03/17 CHIEF COMPLAINT: " I got short of breath" SUBJECTIVE: This gentleman has chronic combined diastolic systolic heart failure, COPD and continues to smoke; chronic respiratory failure of hypoxic nature for which he in a noncompliant fashion usage oxygen. He frequently gets short of breath; this time bad enough to come to the ER. He was thought in the emergency room that he might have a infiltrate in his right lower lobes; this is an area of scaring that is frequently misinterpreted. His septic testing was unremarkable; he already feels better on nebulize bronchial dilators, steroids and of course wearing his oxygen in a compliant manner. He feels better today. He understands that I want him to stay at least 3-4 days to assure his improvement to a point where we can look at discharge. OBJECTIVE: V/S: Temperature 98, pulse 63, blood pressure 136/70, respirations 320 patterns stable. GENERAL: No obvious distress. CHEST: Diminished breath sounds with occasional wheeze. CARDIOVASCULAR: S1, S2 distant EXTREMITIES: Brawny lower extremity 1+ mildly pitting edema half way both lower legs distal. LABS/X-RAYS: WBC 11.2, hgb 13.3 stable, chemistries with bicarb 32, BUN 25, glucose 256 otherwise unremarkable. Blood cultures are negative. ASSESSMENT: # Shortness of breath # COPD exacerbation possible right lower lobe pneumonia # COPD # Chronic respiratory failure additional hypoxemic # Combined congestive heart failure diastolic and systolic. Appears compensated # Stasis dermatitis and stasis edema # Noncompliance with using oxygen regularly. PLAN: 1.Medications-reviewed consider with changes as needed - none 2.Labs reviewed-considered with changes as needed - same daily 3.Diet review- considered and changed made as needed-none 4.Fluids reviewed-considered and changes made as needed-none 5.Increase activity- as able 6.Discuss possible future discharge plans-Patient's agreeable to consider rehab 7.Available to talk with POA or caregiver if needed. SILVIA
== END 2017-06-06 17:55 | DRG 190 ==
LOC: ED 13:41 → MEDSURG B 16:47
PROVIDERS: ADMIT Family Medicine; ATTEND Family Medicine
DX: J44.1 Chronic obstructive pulmonary disease with (acute) exacerbation (principal); J18.9 Pneumonia, unspecified organism; J96.11 Chronic respiratory failure with hypoxia; I50.42 Chronic combined systolic (congestive) and diastolic (congestive) heart failure; I87.2 Venous insufficiency (chronic) (peripheral); I87.303 Chronic venous hypertension (idiopathic) without complications of bilateral lower extremity; I10 Essential (primary) hypertension; F17.200 Nicotine dependence, unspecified, uncomplicated; E11.65 Type 2 diabetes mellitus with hyperglycemia; R60.0 Localized edema; Z95.0 Presence of cardiac pacemaker; Z91.19 Patient's noncompliance with other medical treatment and regimen; Z79.4 Long term (current) use of insulin; Z79.899 Other long term (current) drug therapy
CPT/HCPCS: 36415; 80053; 81001; 82550; 82803; 82962; 83605; 84145; 84484; 85025; 87040; 87081; 93005; 93010; 94640; 96365; 96375; 99284

== ENCOUNTER 2017-08-05 03:40 | Emergency (ER) ==
[2017-08-05 03:51] VITALS: BP 117/72; TEMP 97.6; BMI 27.8
[2017-08-05] MEDS ORDERED: LIDOCAINE HCL 4% 5 ML AMP INJ STA (04:16)
--- NOTE | 2017-08-05 04:29 | ED.PDOC ---
General ED Provider: Dr. KIARA HOWE-ER Chief Complaint: Abscess Stated Complaint: feliz vgot this thing on my neck Time Seen by Physician: 03:45 Mode of Arrival: Walk-In Information Source: Patient, Family Exam Limitations: No limitations Primary Care Provider: FUNMI CISSE Nursing and Triage Documentation Reviewed and Agree: Yes Skin Complaint Exam - Skin/Soft Tissue Complaint/Exam Onset/Duration: several days Symptoms Are: Still present Timing: Constant Initial Severity: Mild Current Severity: Mild Location: right posterior neck Character: Reports: Redness, Swelling, Raised, Painful Aggravating: Reports: None Alleviating: Reports: None Associated Signs and Symptoms: Reports: Drainage, Tenderness. Denies: Fever, Chills, Itching, Bruising Related Surgical History: Reports: None Recent Exposure to Others w/Similar Symptoms: No Skin Findings: Present: Skin lesion Joint Tenderness Present: No Differential Diagnoses: Cellulitis, Other (nabeel cyst) Review of Systems - Review Of Systems Constitutional: Reports: No symptoms Eyes: Reports: No symptoms Ears, Nose, Mouth, Throat: Reports: No symptoms Respiratory: Reports: No symptoms Cardiac: Reports: No symptoms GI: Reports: No symptoms : Reports: No symptoms Musculoskeletal: Reports: No symptoms Skin: Reports: Lumps Neurological: Reports: No symptoms Endocrine: Reports: No symptoms Hematologic/Lymphatic: Reports: No symptoms All Other Systems: Reviewed and Negative Past Medical History - Past Medical History Previously Healthy: Yes Endocrine: Reports: DM 1 (MEDS), Hypothyroid, Other (GOUT-MEDS) Cardiovascular: Reports: CAD, Hypertension, CHF (MEDS), A-Fib Respiratory: Reports: COPD (MEDS) Hematological: Reports: None Gastrointestinal: Reports: None Genitourinary: Reports: Other (PROSTATISM) Neuro/Psych: Reports: Anxiety Musculoskeletal: Reports: None Cancer: Reports: None Other Pertinent Past Medical History: HERNIA,BACK,NECK,STOMACH defib htn dm copd cad - Surgical History General Surgical History: Reports: Pacemaker (DEFIB), Orthopedic (NECK), Back Surgery, Other (hernia repair,STOMACH SX AAA, prostate ercp scheduled for reevaluation), Unknown (stomach surgery) - Family History Family History: Reports: None - Social History Smoking Status: Current every day smoker, Heavy tobacco smoker Hx Substance Use: No Alcohol Screening: None - Immunizations Tetanus Shot up to Date: (UNKNOWN) Physical Exam - Physical Exam Appearance: Well-appearing, No pain distress, Well-nourished Pain Distress: Mild Eyes: SHLOMO, EOMI, Conjunctiva clear ENT: Ears normal, Nose normal, Oropharynx normal Neck: Supple Respiratory: Airway patent Cardiovascular: RRR, Pulses normal, No rub, No murmur GI/: Soft, Nontender, No masses, Bowel sounds normal, No Organomegaly Musculoskeletal: Normal strength, ROM intact, No edema, No calf tenderness Skin: Warm Neurological: Sensation intact Psychiatric: Affect appropriate, Mood appropriate Procedures - Incision and Drainage Site: right posterior neck Instrument Used: 15 Blade I & D Procedure: Yes: Betadine Prep, Sterile drapes applied, Sterile dressing applied Lidocaine Used: Yes Type of Drainage: Present: Blood, None (sebum) Irrigated: No Progress: about 3cc of cheesy material removed--sterile dressing applied Critical Care Note - Critical Care Note Total Time (mins): 0 Course - Course Orders, Labs, Meds: Orders Category Date Time Status WOUND CULTURE Stat LAB 08/05/17 04:22 Received Lidocaine HCl/Pf [Lidocaine HCl 4% 5 ml Amp] MEDS 08/05/17 04:16 Discontinued 1 ml INJ ONCE STA Medications Discontinued Medications Generic Name Dose Route Start Last Admin Trade Name Freq PRN Reason Stop Dose Admin Lidocaine HCl 1 ml 08/05/17 04:16 08/05/17 04:28 Lidocaine Hcl 4% 5 Ml Amp INJ 08/05/17 04:17 1 ml ONCE STA Administration Vital Signs: Temp Pulse Resp BP Pulse Ox 08/05/17 03:41 97.6 F 87 24 117/72 91 L Departure - Departure Time of Disposition: 04:30 Disposition: HOME SELF-CARE Discharge Problem: Infected sebaceous cyst Instructions: Epidermal Inclusion Cysts (ED) Condition: Good Pt referred to PMD for follow-up: Yes Additional Instructions: change dressing daily--minocin 50mg qdaily x 7 days Allergies/Adverse Reactions: Allergies Penicillins Adverse Reaction (Intermediate, Verified 08/05/17 03:51) UNKNOWN Home Medications: Ambulatory Orders Potassium Chloride [K-Dur] 20 meq PO BEDTIME 04/11/13 Lisinopril 5 mg PO DAILY 03/09/16 Albuterol Sulfate 0.083% Neb [Albuterol 0.083% Neb] 1 vial NEB Q6H PRN 03/21/17 Allopurinol [Zyloprim] 300 mg PO BEDTIME #1 05/23/17 Amiodarone HCl [Cordarone] 200 mg PO DAILY #1 tablet 05/23/17 Aspirin [Aspirin Chewable] 81 mg PO DAILY #1 05/23/17 Carvedilol [Coreg] 6.25 mg PO BID #1 05/23/17 Digoxin [Lanoxin] 125 mcg PO DAILY #1 05/23/17 Gabapentin [Neurontin] 300 mg PO TID #1 05/23/17 Insulin Glargine,Hum.rec.anlog [Lantus] 15 units PO BEDTIME #1 05/23/17 Insulin Regular, Human [Humulin R] 8 unit SUBCUT TID #1 05/23/17 Levothyroxine Sodium [Synthroid] 75 mcg PO QDAC #1 05/23/17 Nitroglycerin [Nitrostat] 0.4 mg SL PRN PRN #1 05/23/17 Pramipexole Di-HCl [Pramipexole ER] 0.5 mg PO BID #1 05/23/17 Solifenacin Succinate [Vesicare] 10 mg PO DAILY #1 05/23/17 Tiotropium [place] [Spiriva] 1 cap IH DAILY #1 05/23/17 Albuterol Sulfate [Proair Hfa] 2 puff IH DAILY 08/05/17 Clonidine HCl 0.1 mg PO DAILY PRN 08/05/17 Furosemide [Lasix Tab] 40 mg PO DAILY 08/05/17 Glipizide 5 mg PO DAILY 08/05/17 Hydrocodone/Acetaminophen [Hydrocodon-Acetaminophen 5-325] 1 each PO BID PRN Silver Sulfadiazine [Silvadene Cream] 1 applic TP DAILY PRN 08/05/17 Disposition Discussed With: Patient, Family
== END 2017-08-05 04:35 | disposition home or self-care (01) ==
LOC: ED 03:40
DX: L72.3 Sebaceous cyst (principal); F17.210 Nicotine dependence, cigarettes, uncomplicated
CPT/HCPCS: 87070; 96372; 99283

== ENCOUNTER 2017-09-02 11:24 | Emergency (ER) | payer OTHER ==
[2017-09-02 11:33] VITALS: BP 126/79; TEMP 98; BMI 30.7
--- NOTE | 2017-09-02 12:22 | DI ---
Exam: Left knee four views History: Knee pain Findings / impression: No acute bony abnormality is seen. Possible small joint effusion. Severe tr icompartmental osteoarthritic change with medial bone on bone joint space narrowing.
--- NOTE | 2017-09-02 12:52 | ED.PDOC ---
General ED Provider: Dr. LILA GARCIA Chief Complaint: Fall Stated Complaint: fall, left knee pain Time Seen by Physician: 11:30 (pain fall knee pain chronic ) Mode of Arrival: Wheelchair Information Source: Patient Exam Limitations: No limitations Primary Care Provider: FUNMI CISSE Nursing and Triage Documentation Reviewed and Agree: Yes Musculoskeletal Complaint Exam - Knee Pain Complaint/Exam Mechanism of Injury: Reports: Trauma (fall) Onset/Duration: today Symptoms Are: Still present Onset of Pain: Reports: Hours Initial Severity: Mild Current Severity: Mild Location: Reports: Discrete Character: Reports: Aching Alleviating: Reports: Rest, Position Aggravating: Reports: Movement Associated Signs and Symptoms: Denies: Swelling, Redness, Bruising, Fever, Weakness, Numbness, Tingling Septic Arthritis Risk Factors: Reports: None Gout Risk Factors: Reports: >40 years old, Male Knee Findings: Absent: Swelling, Ecchymosis, Abnormal contour Tenderness: Present: Pre-patellar Ligia Test Positive: No [place] Test Positive: No Differential Diagnoses: Closed Fracture Review of Systems - Review Of Systems Constitutional: Reports: No symptoms Eyes: Reports: No symptoms Ears, Nose, Mouth, Throat: Reports: No symptoms Respiratory: Reports: No symptoms Cardiac: Reports: No symptoms GI: Reports: No symptoms : Reports: No symptoms Musculoskeletal: Reports: Joint pain (knee pain right) Skin: Reports: No symptoms Neurological: Reports: No symptoms Endocrine: Reports: No symptoms Hematologic/Lymphatic: Reports: No symptoms All Other Systems: Reviewed and Negative Past Medical History - Past Medical History Previously Healthy: Yes Endocrine: Reports: DM 1 (MEDS), Hypothyroid, Other (GOUT-MEDS) Cardiovascular: Reports: CAD, Hypertension, CHF (MEDS), A-Fib Respiratory: Reports: COPD (MEDS) Hematological: Reports: None Gastrointestinal: Reports: None Genitourinary: Reports: Other (PROSTATISM) Neuro/Psych: Reports: Anxiety Musculoskeletal: Reports: None Cancer: Reports: None Other Pertinent Past Medical History: HERNIA,BACK,NECK,STOMACH defib htn dm copd cad - Surgical History General Surgical History: Reports: Pacemaker (DEFIB), Orthopedic (NECK), Back Surgery, Other (hernia repair,STOMACH SX AAA, prostate ercp scheduled for reevaluation), Unknown (stomach surgery) - Family History Family History: Reports: None - Social History Smoking Status: Current every day smoker, Heavy tobacco smoker Hx Substance Use: No Alcohol Screening: None Physical Exam - Physical Exam Appearance: Well-appearing, No pain distress, Well-nourished Eyes: SHLOMO, EOMI, Conjunctiva clear ENT: Ears normal, Nose normal, Oropharynx normal Respiratory: Airway patent, Breath sounds clear, Breath sounds equal, Respirations nonlabored Cardiovascular: RRR, Pulses normal, No rub, No murmur GI/: Soft, Nontender, No masses, Bowel sounds normal, No Organomegaly Musculoskeletal: Normal strength, ROM intact, No edema, No calf tenderness Skin: Warm, Dry, Normal color Neurological: Sensation intact, Motor intact, Reflexes intact, Cranial nerves intact, Alert, Oriented Psychiatric: Affect appropriate, Mood appropriate Interpretation - Radiology Interpretation Radiology Interpretation By: Radiologist Radiology Results: No acute changes Critical Care Note - Critical Care Note Total Time (mins): 0 Course - Course Orders, Labs, Meds: Orders Category Date Time Status KNEE, LEFT 4 VIEWS Stat RADS 09/02/17 11:47 Completed Vital Signs: Temp Pulse Resp BP Pulse Ox 09/02/17 11:25 98.0 F 74 24 126/79 94 L Departure - Departure Time of Disposition: 12:52 Disposition: HOME SELF-CARE Discharge Problem: Falls Knee pain, right Qualifiers: Chronicity: chronic Qualified Code(s): M25.561 - Pain in right knee; G89.29 - Other chronic pain; G89.29 - Other chronic pain Instructions: Knee Pain (ED) Condition: Good Pt referred to PMD for follow-up: Yes Additional Instructions: Please call your Family Physician as soon as possible to schedule a follow-up appointment. Allergies/Adverse Reactions: Allergies Penicillins Adverse Reaction (Intermediate, Verified 09/02/17 11:34) UNKNOWN Home Medications: Ambulatory Orders Potassium Chloride [K-Dur] 20 meq PO BEDTIME 04/11/13 Lisinopril 5 mg PO DAILY 03/09/16 Albuterol Sulfate 0.083% Neb [Albuterol 0.083% Neb] 1 vial NEB Q6H PRN 03/21/17 Allopurinol [Zyloprim] 300 mg PO BEDTIME #1 05/23/17 Amiodarone HCl [Cordarone] 200 mg PO DAILY #1 tablet 05/23/17 Aspirin [Aspirin Chewable] 81 mg PO DAILY #1 05/23/17 Carvedilol [Coreg] 6.25 mg PO BID #1 05/23/17 Digoxin [Lanoxin] 125 mcg PO DAILY #1 05/23/17 Gabapentin [Neurontin] 300 mg PO TID #1 05/23/17 Insulin Glargine,Hum.rec.anlog [Lantus] 15 units PO BEDTIME #1 05/23/17 Insulin Regular, Human [Humulin R] 8 unit SUBCUT TID #1 05/23/17 Levothyroxine Sodium [Synthroid] 75 mcg PO QDAC #1 05/23/17 Nitroglycerin [Nitrostat] 0.4 mg SL PRN PRN #1 05/23/17 Pramipexole Di-HCl [Pramipexole ER] 0.5 mg PO BID #1 05/23/17 Solifenacin Succinate [Vesicare] 10 mg PO DAILY #1 05/23/17 Tiotropium [place] [Spiriva] 1 cap IH DAILY #1 05/23/17 Albuterol Sulfate [Proair Hfa] 2 puff IH DAILY 08/05/17 Clonidine HCl 0.1 mg PO DAILY PRN 08/05/17 Furosemide [Lasix Tab] 40 mg PO DAILY 08/05/17 Glipizide 5 mg PO DAILY 08/05/17 Hydrocodone/Acetaminophen [Hydrocodon-Acetaminophen 5-325] 1 each PO BID PRN Silver Sulfadiazine [Silvadene Cream] 1 applic TP DAILY PRN 08/05/17
== END 2017-09-02 13:34 | disposition home or self-care (01) ==
LOC: ED 11:24
DX: M25.562 Pain in left knee (principal); G89.29 Other chronic pain; W19.XXXA Unspecified fall, initial encounter; F17.210 Nicotine dependence, cigarettes, uncomplicated
CPT/HCPCS: 99283

== ENCOUNTER 2017-09-23 10:53 | Outpatient (CLI) ==
[2013-04-11 01:57] VITALS: TEMP 98.6
== END 2017-09-23 10:54 | disposition left against medical advice (07) ==
LOC: AMBL 10:53
PROVIDERS: ATTEND Emergency Medicine
DX: S81.812A Laceration without foreign body, left lower leg, initial encounter (principal); S41.112A Laceration without foreign body of left upper arm, initial encounter; V73.6XXA Passenger on bus injured in collision with car, pick-up truck or van in traffic accident, initial encounter

== ENCOUNTER 2017-09-23 11:51 | Emergency (ER) ==
[2017-09-23 11:57] VITALS: TEMP 97.8; BMI 27.8
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
[2017-09-23 12:24] VITALS: BP 119/72
[2017-09-23 13:08] LABS: BILIRUBIN,URINE Negative (NEGATIVE); KETONES,URINE Negative (NEGATIVE); LEUKOCYTE ESTERASE ,URINE Negative (NEGATIVE); NITRITE,URINE Negative (NEGATIVE); PROTEIN,URINE Negative (NEGATIVE); URINE, BLOOD Negative (NEGATIVE)
[2017-09-23 13:12] LABS: ADD URINE MICROSCOPIC NO
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
--- NOTE | 2017-09-23 13:20 | DI ---
EXAM: Chest two view, frontal and lateral views. HISTORY: Cough. COMPARISON: 06/01/2017. FINDINGS: Left-sided automatic implantable cardiac defibrillator noted. Heart is enlarged. Tortuos ity of the thoracic aorta noted. Right basilar scarring is stable. Lungs are otherwise clear withou t pleural effusion or pneumothorax. There is no vascular congestion. No acute osseous abnormality i dentified. Mild compression deformity of a mid thoracic vertebral body is stable. Since prior study , there has been no significant interval change. IMPRESSION: No acute process.
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
== END 2017-09-23 14:15 | disposition home or self-care (01) ==
LOC: ED 11:51
DX: S09.90XA Unspecified injury of head, initial encounter (principal); S51.812A Laceration without foreign body of left forearm, initial encounter; S81.811A Laceration without foreign body, right lower leg, initial encounter; S22.009A Unspecified fracture of unspecified thoracic vertebra, initial encounter for closed fracture; M54.2 Cervicalgia; F17.210 Nicotine dependence, cigarettes, uncomplicated; V79.9XXA Bus occupant (driver) (passenger) injured in unspecified traffic accident, initial encounter
CPT/HCPCS: 81001; 99283

== ENCOUNTER 2017-09-26 14:57 | Emergency (ER) | payer OTHER ==
[2017-09-26 14:57] VITALS: BMI 27.8
[2017-09-26 15:06] VITALS: BP 103/64; TEMP 98.5
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
== END 2017-09-26 16:58 | disposition home or self-care (01) ==
LOC: ED 14:57
DX: S22.32XA Fracture of one rib, left side, initial encounter for closed fracture (principal); V89.2XXA Person injured in unspecified motor-vehicle accident, traffic, initial encounter; F17.210 Nicotine dependence, cigarettes, uncomplicated
CPT/HCPCS: 99283

== ENCOUNTER 2017-10-01 16:28 | Inpatient (IN) ==
[2017-10-01] MEDS ORDERED: SODIUM CHLORIDE 1,000 ML IV STA (16:52)
[2017-10-01] MEDS ORDERED: SOLU-MEDROL 40 MG IVP STA (16:52)
[2017-10-01] MEDS ORDERED: DUONEB NEB STA (16:52)
[2017-10-01 17:03] LABS: BASOPHILS # (AUTO) 0.1 K/uL (0-0.2); BASOPHILS % (AUTO) 0.4 % (0.0-3.0); EOSINOPHILS % (AUTO) 0.2 % (0.0-7.0); HEMATOCRIT 40.2 % (42.0-52.0); HEMOGLOBIN 13.1 g/dl (14.0-18.0); IMMATURE GRANULOCYTE % (AUTO) 0.5 % (0.0-5.0); LYMPHOCYTES # (AUTO) 1.2 K/uL (0.60-3.4); LYMPHOCYTES % (AUTO) 8.7 (10.0-50.0); MEAN CORPUSCULAR HGB CONC 32.6 (31.8-35.4); MEAN CORPUSCULAR VOLUME 92.2 fl (80.0-94.0); MONOCYTES # (AUTO) 1.4 K/uL (0.4-2.0); MONOCYTES % (AUTO) 10.4 (0-10); NEUTROPHILS # (AUTO) 10.7 K/ul (2.0-6.9); NEUTROPHILS % (AUTO) 79.8; PLATELET COUNT 269 10^3/uL (140-440); RED BLOOD COUNT 4.36 10^6/ul (4.70-6.10); WHITE BLOOD COUNT 13.43 K/ul (4.2-10.2)
[2017-10-01 17:39] LABS: ALBUMIN 2.9 g/dL (3.4-5.0); ALBUMIN/GLOBULIN RATIO 0.78; ANION GAP 13.5; BILIRUBIN,TOTAL 0.79 mg/dL (0.00-1.20); BUN/CREATININE RATIO 28.64; CALCIUM 9.2 mg/dL (8.2-10.2); CREATININE 1.99 mg/dL (0.60-1.10); POTASSIUM 4.5 mmol/L (3.5-5.1); TOTAL PROTEIN 6.6 g/dL (5.8-8.1); TROPONIN I 0.169 ng/ml (0.0000-0.4000)
[2017-10-01 17:40] LABS: CREATINE KINASE MB 4.3 ng/ml (0.0-3.6)
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
[2017-10-01] MEDS ORDERED: ROCEPHIN 1 GM in SODIUM CHLORIDE 50 ML IV STA (18:32)
[2017-10-01] MEDS ORDERED: ROCEPHIN ONE (19:13)
[2017-10-01 19:17] LABS: ABG BASE EXCESS 3 (-2.0-2.0); ABG HCO3 29.3 (22.0-26.0); ABG PCO2 59.4 mmHg (35-45); ABG PH 7.301 (7.35-7.45); ABG TCO2 31 (22.0-28.0)
[2017-10-01] MEDS ORDERED: ATROPINE SULFATE PFS IVP PRN (20:47)
[2017-10-01] MEDS ORDERED: NITROSTAT SL PRN (20:47)
[2017-10-01] MEDS ORDERED: TYLENOL PO PRN (20:47)
[2017-10-01] MEDS ORDERED: VISTARIL INJ IM PRN (20:47)
[2017-10-01] MEDS ORDERED: MORPHINE 4 MG/ML VIAL IVP PRN (20:47)
[2017-10-01] MEDS ORDERED: CATAPRES PO PRN (21:39)
[2017-10-01] MEDS ORDERED: LANTUS SUBCUT SCH (21:41)
[2017-10-01] MEDS: SOLU-MEDROL 40 MG IVP SCH (21:56)
[2017-10-01] MEDS ORDERED: HUMULIN R SUBCUT PRN (22:22)
[2017-10-01] MEDS ORDERED: LANTUS SUBCUT ONE (22:24)
[2017-10-01] MEDS ORDERED: MIRAPEX PO SCH (22:30)
[2017-10-01] MEDS: DUONEB NEB SCH (22:38)
[2017-10-01] MEDS ORDERED: DUONEB NEB ONE (22:38)
[2017-10-01] MEDS: NEURONTIN PO SCH (22:38)
[2017-10-01] MEDS ORDERED: HUMULIN R ONE (22:43)
[2017-10-01] MEDS: SILVADENE CREAM TP PRN (22:45)
[2017-10-01] MEDS: LANTUS SUBCUT SCH (22:48)
[2017-10-02] MEDS ORDERED: ULTRAM PO SCH
[2017-10-02 02:27] VITALS: BMI 27.5
[2017-10-02] MEDS: DUONEB NEB SCH ×4 (05:08→21:00)
[2017-10-02] MEDS: SYNTHROID PO SCH (05:33)
[2017-10-02] MEDS: LASIX TAB PO SCH (05:33)
[2017-10-02] MEDS: HUMULIN R SUBCUT PRN ×4 (06:15→20:18)
[2017-10-02 06:18] LABS: BASOPHILS % (AUTO) 0.2 % (0.0-3.0); HEMATOCRIT 41.1 % (42.0-52.0); HEMOGLOBIN 13.4 g/dl (14.0-18.0); IMMATURE GRANULOCYTE % (AUTO) 0.6 % (0.0-5.0); LYMPHOCYTES # (AUTO) 0.5 K/uL (0.60-3.4); LYMPHOCYTES % (AUTO) 4.7 (10.0-50.0); MEAN CORPUSCULAR HEMOGLOBIN 29.8 pg (27.0-31.0); MEAN CORPUSCULAR HGB CONC 32.6 (31.8-35.4); MEAN CORPUSCULAR VOLUME 91.5 fl (80.0-94.0); MONOCYTES # (AUTO) 0.2 K/uL (0.4-2.0); MONOCYTES % (AUTO) 2.1 (0-10); NEUTROPHILS # (AUTO) 10.3 K/ul (2.0-6.9); NEUTROPHILS % (AUTO) 92.4; PLATELET COUNT 292 10^3/uL (140-440); RED BLOOD COUNT 4.49 10^6/ul (4.70-6.10); WHITE BLOOD COUNT 11.19 K/ul (4.2-10.2)
[2017-10-02] MEDS ORDERED: HUMULIN R SUBCUT SCH ×2 (06:30→09:00)
[2017-10-02 06:50] LABS: ALBUMIN 2.7 g/dL (3.4-5.0); ALBUMIN/GLOBULIN RATIO 0.69; ANION GAP 13.4; BILIRUBIN,TOTAL 0.45 mg/dL (0.00-1.20); POTASSIUM 4.4 mmol/L (3.5-5.1); TOTAL PROTEIN 6.6 g/dL (5.8-8.1)
[2017-10-02] MEDS ORDERED: MORPHINE 2 MG/ML SYRINGE IVP PRN (07:25)
[2017-10-02] MEDS ORDERED: ASPIRIN EC PO SCH (08:00)
[2017-10-02 08:43] LABS: BILIRUBIN,URINE Negative (NEGATIVE); KETONES,URINE Negative (NEGATIVE); LEUKOCYTE ESTERASE ,URINE Negative (NEGATIVE); NITRITE,URINE Negative (NEGATIVE); PROTEIN,URINE Negative (NEGATIVE); URINE, BLOOD Negative (NEGATIVE)
[2017-10-02 08:44] LABS: ADD URINE MICROSCOPIC NO
[2017-10-02] MEDS ORDERED: NEURONTIN PO SCH (09:00)
[2017-10-02] MEDS ORDERED: NON-FORMULARY MEDICATION (Solifenacin Succinate [Vesicare] 10 MG) PO SCH ×22 (09:00)
[2017-10-02] MEDS ORDERED: LASIX TAB PO SCH (09:00)
[2017-10-02] MEDS ORDERED: PROAIR HFA IH SCH (09:00)
[2017-10-02] MEDS ORDERED: PRAMIPEXOLE DI HCL 0.5 MG PO SCH (09:00)
[2017-10-02] MEDS: SPIRIVA IH SCH (09:05)
[2017-10-02] MEDS: COREG PO SCH ×2 (09:06→18:17)
[2017-10-02] MEDS: VESICARE PO SCH (09:07)
[2017-10-02] MEDS: ZESTRIL PO SCH (09:07)
[2017-10-02] MEDS: ASPIRIN CHEWABLE PO SCH (09:07)
[2017-10-02] MEDS: NEURONTIN PO SCH ×2 (09:07→20:11)
[2017-10-02] MEDS: MIRAPEX PO SCH ×2 (09:07→20:11)
[2017-10-02] MEDS: CORDARONE PO SCH (09:07)
[2017-10-02] MEDS: GLUCOTROL PO SCH (09:07)
[2017-10-02] MEDS: LANOXIN PO SCH (09:08)
[2017-10-02] MEDS: SOLU-MEDROL 40 MG IVP SCH ×2 (10:34→20:10)
[2017-10-02] MEDS: SODIUM CHLORIDE 1,000 ML IV SCH (11:00)
[2017-10-02] MEDS ORDERED: PROAIR HFA IH PRN (11:20)
[2017-10-02] MEDS: ROCEPHIN 1 GM in SODIUM CHLORIDE 50 ML IV SCH (20:07)
[2017-10-02] MEDS: LANTUS SUBCUT SCH (20:08)
[2017-10-02] MEDS: SILVADENE CREAM TP PRN (20:09)
[2017-10-02] MEDS: ZYLOPRIM PO SCH (20:10)
[2017-10-02] MEDS: NORCO 5-325 PO PRN (20:11)
[2017-10-02] MEDS: K-DUR PO SCH (20:11)
[2017-10-03] MEDS: DUONEB NEB SCH ×6 (01:14→21:11)
[2017-10-03 05:12] LABS: ANISOCYTOSIS NOT PRESENT (NOT PRESENT)
[2017-10-03 05:20] LABS: HEMATOCRIT 38.3 % (42.0-52.0); HEMOGLOBIN 12.9 g/dl (14.0-18.0); MEAN CORPUSCULAR HGB CONC 33.7 (31.8-35.4); MEAN CORPUSCULAR VOLUME 89.1 fl (80.0-94.0); PLATELET COUNT 315 10^3/uL (140-440); WHITE BLOOD COUNT 15.15 K/ul (4.2-10.2)
[2017-10-03] MEDS: SYNTHROID PO SCH (05:36)
[2017-10-03] MEDS: LASIX TAB PO SCH (05:36)
[2017-10-03] MEDS: HUMULIN R SUBCUT PRN ×3 (06:28→21:55)
[2017-10-03 06:50] LABS: ALBUMIN 2.7 g/dL (3.4-5.0); ALBUMIN/GLOBULIN RATIO 0.69; ANION GAP 13.7; BILIRUBIN,TOTAL 0.32 mg/dL (0.00-1.20); BUN/CREATININE RATIO 36.36; CREATININE 1.76 mg/dL (0.60-1.10); POTASSIUM 4.7 mmol/L (3.5-5.1); TOTAL PROTEIN 6.6 g/dL (5.8-8.1)
[2017-10-03] MEDS: SOLU-MEDROL 40 MG IVP SCH ×2 (09:24→21:40)
[2017-10-03] MEDS: SPIRIVA IH SCH (09:24)
[2017-10-03] MEDS: SILVADENE CREAM TP PRN (09:24)
[2017-10-03] MEDS: COREG PO SCH ×2 (09:25→17:56)
[2017-10-03] MEDS: CORDARONE PO SCH (09:25)
[2017-10-03] MEDS: MIRAPEX PO SCH ×2 (09:25→21:43)
[2017-10-03] MEDS: VESICARE PO SCH (09:25)
[2017-10-03] MEDS: ZESTRIL PO SCH (09:26)
[2017-10-03] MEDS: GLUCOTROL PO SCH (09:26)
[2017-10-03] MEDS: NEURONTIN PO SCH ×2 (09:26→21:43)
[2017-10-03] MEDS: ASPIRIN CHEWABLE PO SCH (09:26)
[2017-10-03] MEDS: LANOXIN PO SCH (09:26)
[2017-10-03] MEDS: NORCO 5-325 PO PRN (11:46)
--- NOTE | 2017-10-03 12:38 | DI ---
EXAM: Chest two view, frontal and lateral views. HISTORY: Chronic obstructive pulmonary disease. COMPARISON: 10/01/2017. FINDINGS: Left-sided automatic implantable cardiac defibrillator again noted. Cardiac silhouette is enlarged. Consolidation is present in the right lower lobe which is likely improved. Lungs otherwi se clear without pleural effusion or pneumothorax. No acute osseous abnormality identified. Old mid thoracic vertebral compression deformity noted. ACDF changes noted. IMPRESSION: Right lower lobe pneumonia which is probably improved.
[2017-10-03 13:57] LABS: ABG PH 7.379 (7.35-7.45)
[2017-10-03 13:59] LABS: ABG BASE EXCESS 5 (-2.0-2.0); ABG HCO3 30.1 (22.0-26.0); ABG TCO2 32 (22.0-28.0)
[2017-10-03] MEDS: SODIUM CHLORIDE 1,000 ML IV SCH (14:24)
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
[2017-10-03] MEDS: ROCEPHIN 1 GM in SODIUM CHLORIDE 50 ML IV SCH (21:35)
[2017-10-03] MEDS: LANTUS SUBCUT SCH (21:38)
[2017-10-03] MEDS: ZYLOPRIM PO SCH (21:43)
[2017-10-03] MEDS: K-DUR PO SCH (21:43)
[2017-10-04] MEDS: NORCO 5-325 PO PRN ×2 (00:46→21:26)
[2017-10-04] MEDS: DUONEB NEB SCH ×5 (01:18→17:31)
[2017-10-04] MEDS: LASIX TAB PO SCH (05:51)
[2017-10-04] MEDS: SYNTHROID PO SCH (05:51)
[2017-10-04] MEDS: HUMULIN R SUBCUT PRN ×4 (05:59→22:30)
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
[2017-10-04] MEDS: LANOXIN PO SCH (09:32)
[2017-10-04] MEDS: ASPIRIN CHEWABLE PO SCH (09:32)
[2017-10-04] MEDS: COREG PO SCH ×2 (09:33→17:32)
[2017-10-04] MEDS: CORDARONE PO SCH (09:33)
[2017-10-04] MEDS: GLUCOTROL PO SCH (09:34)
[2017-10-04] MEDS: MIRAPEX PO SCH ×2 (09:34→21:26)
[2017-10-04] MEDS: NEURONTIN PO SCH ×2 (09:35→21:26)
[2017-10-04] MEDS: VESICARE PO SCH (09:35)
[2017-10-04] MEDS: ZESTRIL PO SCH (09:35)
[2017-10-04] MEDS: SPIRIVA IH SCH (09:37)
[2017-10-04] MEDS: SOLU-MEDROL 40 MG IVP SCH ×2 (10:08→21:28)
[2017-10-04] MEDS: SODIUM CHLORIDE 1,000 ML IV SCH (14:54)
[2017-10-04] MEDS ORDERED: LANTUS SUBCUT SCH (21:15)
[2017-10-04] MEDS: ROCEPHIN 1 GM in SODIUM CHLORIDE 50 ML IV SCH (21:25)
[2017-10-04] MEDS: ZYLOPRIM PO SCH (21:25)
[2017-10-04] MEDS: K-DUR PO SCH (21:26)
[2017-10-04] MEDS: LANTUS SUBCUT SCH (21:30)
[2017-10-04] MEDS ORDERED: LANTUS SUBCUT STA (21:44)
[2017-10-05] MEDS: DUONEB NEB SCH ×5 (00:25→14:08)
[2017-10-05 05:34] LABS: BASOPHILS % (AUTO) 0.3 % (0.0-3.0); HEMATOCRIT 40.1 % (42.0-52.0); HEMOGLOBIN 13.5 g/dl (14.0-18.0); IMMATURE GRANULOCYTE % (AUTO) 4.9 % (0.0-5.0); LYMPHOCYTES # (AUTO) 0.5 K/uL (0.60-3.4); LYMPHOCYTES % (AUTO) 5.2 (10.0-50.0); MEAN CORPUSCULAR HEMOGLOBIN 30.4 pg (27.0-31.0); MEAN CORPUSCULAR HGB CONC 33.7 (31.8-35.4); MEAN CORPUSCULAR VOLUME 90.3 fl (80.0-94.0); MONOCYTES # (AUTO) 0.2 K/uL (0.4-2.0); MONOCYTES % (AUTO) 2.4 (0-10); NEUTROPHILS # (AUTO) 8.2 K/ul (2.0-6.9); NEUTROPHILS % (AUTO) 87.2; PLATELET COUNT 320 10^3/uL (140-440); RED BLOOD COUNT 4.44 10^6/ul (4.70-6.10); WHITE BLOOD COUNT 9.41 K/ul (4.2-10.2)
[2017-10-05] MEDS: LASIX TAB PO SCH (05:42)
[2017-10-05] MEDS: SYNTHROID PO SCH (05:42)
[2017-10-05] MEDS: SILVADENE CREAM TP PRN (05:51)
[2017-10-05] MEDS: HUMULIN R SUBCUT PRN ×2 (06:31→13:35)
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
[2017-10-05] MEDS: MIRAPEX PO SCH (09:19)
[2017-10-05] MEDS: NEURONTIN PO SCH (09:19)
[2017-10-05] MEDS: SPIRIVA IH SCH (09:19)
[2017-10-05] MEDS: VESICARE PO SCH (09:19)
[2017-10-05] MEDS: ZESTRIL PO SCH (09:19)
[2017-10-05] MEDS: COREG PO SCH (09:20)
[2017-10-05] MEDS: LANOXIN PO SCH (09:20)
[2017-10-05] MEDS: ASPIRIN CHEWABLE PO SCH (09:20)
[2017-10-05] MEDS: GLUCOTROL PO SCH (09:20)
[2017-10-05] MEDS: CORDARONE PO SCH (09:21)
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
[2017-10-05 10:34] LABS: ALBUMIN 2.8 g/dL (3.4-5.0); ALBUMIN/GLOBULIN RATIO 0.82; ANION GAP 13.3; BILIRUBIN,TOTAL 0.38 mg/dL (0.00-1.20); BUN/CREATININE RATIO 32.9; CALCIUM 8.9 mg/dL (8.2-10.2); CREATININE 1.55 mg/dL (0.60-1.10); POTASSIUM 4.3 mmol/L (3.5-5.1); TOTAL PROTEIN 6.2 g/dL (5.8-8.1)
[2017-10-05] MEDS: SOLU-MEDROL 40 MG IVP SCH ×2 (11:30→14:08)
--- NOTE | 2017-10-05 13:34 | DI ---
EXAM: CHEST FRONTAL AND LATERAL VIEWS HISTORY: Pneumonia. COMPARISON: 10/03/2017 FINDINGS: Stable cardiomegaly. Ectatic dilated thoracic aorta is stable. Left-sided pacemaker unit is stable. Discoid opacity in the right base is slightly improved and could indicate atelectasis an d / or pneumonia. Lungs are otherwise clear. No pleural fluid. IMPRESSION: Improving right base density.
[2017-10-05 14:18] VITALS: BP 133/74; TEMP 98.6
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
== END 2017-10-05 14:57 | disposition swing bed (61) | DRG 193 ==
LOC: ED 16:28 → MEDSURG B 18:46
PROVIDERS: ADMIT Family Medicine; ATTEND Family Medicine
DX: J18.1 Lobar pneumonia, unspecified organism (principal); N17.0 Acute kidney failure with tubular necrosis; J96.20 Acute and chronic respiratory failure, unspecified whether with hypoxia or hypercapnia; I50.43 Acute on chronic combined systolic (congestive) and diastolic (congestive) heart failure; S32.019A Unspecified fracture of first lumbar vertebra, initial encounter for closed fracture; S22.089A Unspecified fracture of T11-T12 vertebra, initial encounter for closed fracture; S22.32XA Fracture of one rib, left side, initial encounter for closed fracture; J44.1 Chronic obstructive pulmonary disease with (acute) exacerbation; S32.591A Other specified fracture of right pubis, initial encounter for closed fracture; Z91.19 Patient's noncompliance with other medical treatment and regimen; R53.83 Other fatigue; R26.89 Other abnormalities of gait and mobility; S29.011A Strain of muscle and tendon of front wall of thorax, initial encounter; E11.9 Type 2 diabetes mellitus without complications; I27.20 Pulmonary hypertension, unspecified; F17.200 Nicotine dependence, unspecified, uncomplicated; E86.0 Dehydration; Z79.899 Other long term (current) drug therapy; Z79.4 Long term (current) use of insulin; Z99.81 Dependence on supplemental oxygen; Z86.73 Personal history of transient ischemic attack (TIA), and cerebral infarction without residual deficits; Z95.810 Presence of automatic (implantable) cardiac defibrillator; V73.6XXA Passenger on bus injured in collision with car, pick-up truck or van in traffic accident, initial encounter
CPT/HCPCS: 36415; 80053; 81001; 82550; 82553; 82803; 82962; 83605; 83880; 84145; 84484; 85007; 85025; 85027; 87070; 93005; 93010; 94640; 96361; 96365; 96375; 99285

== ENCOUNTER 2017-10-05 14:59 | Inpatient (IN) ==
[2017-10-05] MEDS ORDERED: HUMULIN R SUBCUT PRN (15:09)
--- NOTE | 2017-10-05 15:18 | RS.OTINEVL ---
Subjective - Patient information Date of Evaluation: 10/05/17 Date of Arrival on Unit: 10/05/17 Admitted From:: In-House Transfer Diagnosis: Right pubic rami fracture Usual Living Arrangement: Alone Living Arrangement Comments: [facility] Home Environment: Apartment, Level/No stairs Medical History: CVA/TIA Medical History Comments:: [place], defribrillator, pacemaker, Marie's palsy, Chronic sinus, DMII, Neck surgery, LLE ankle, intestines LATEX ALLERGY?: No Surgical History Comments:: intestines, LLE ankle, neck Subjective Information/ Patient Comments:: [facility]. Pt is confused. I need the hat on that ice cream. 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 Engine Wiper/Cooking, Participated in Social Activities Outside home Abilities prior to this admission: Pt was oriented to person, place, and situation. Current Level of Function: Partially Dependent Current Equipment Used at Home: Rolling walker, straight cane. Pain Assessment - Pain Pain Score: 0 Interventions - Objective Patient Orientation: Person Current Interventions: IV's, Oxygen Observation: Pt is confused and having more difficulty ambulating. Interventions - ROM Right Upper Extremity AROM: WFL's Left Upper Extremity AROM: Moderate limitation - Strength Right Upper Extremity Strength: Mild Weakness Left Upper Extremity Strength: Severe Weakness - Sensation Right Upper Extremity Sensation: Intact/Normal Left Upper Extremity Sensation: Intact/Normal Balance - Sitting Balance Static Sitting Balance: Fair Dynamic Sitting Balance: Fair - Standing Balance Static Standing Balance: Poor Dynamic Standing Balance: Poor ADL Skills - Self Feeding Self Feeding: Supervision - Grooming Grooming: Min Assist - Bathing Bathing UE: Min Assist Bathing LE: Min Assist - Dressing Dressing UE: Min Assist Dressing LE: Min Assist - Toilet Management Toileting Management: Mod Assist Functional Mobility - Bed Mobility Rolling R/L: Supervision Scooting: Supervision Supine to Sit: Supervision Sit to Supine: Supervision - Transfers Sit to Stand: CGA Stand to Sit: CGA Stand Pivot Transfers: Min Assist - Ambulation Weight Bearing Status: WBAT Assistance needed with Ambulation: Min Assist - Safety Awareness Safety Awareness: Poor Additional Treatment Performed - Additional units charged ADL: 15 - Time with patient Total treatment time: 18 Activities Patient Interests:: Watching Television Patient Education Patient Education: Education of Plan of Care Teaching Recipient: Patient Teaching Methods: Discussion Assessment Problem List:: Decreased level of function, Requires training/education, Decreased safety/Risk of falls, Weakness, Cognitive status limits abilities Rehab Potential: Good Further Therapy Indicated?: Yes Short Term Goals - Goals GOAL 1: To be (CGA) with sink level ADLS. Goal to be met by: 10/12/17 Progress towards goal: Partially Met GOAL 2: To increase dyn. std. Balance to Fair +. Goal to be met by: 10/12/17 Progress towards goal: Partially Met GOAL 3: Pt to increase activity tolerance to 20 min. with rest PRN. Goal to be met by: 10/12/17 Residential Goals GOAL 1: To be (Mod-I) with sink level ADLS. Goal to be met by: 10/19/17 GOAL 2: To increase dyn. std. Balance to Good. Goal to be met by: 10/19/17 GOAL 3: Pt to increase activity tolerance to 25 min. with rest PRN. Goal to be met by: 10/19/17 Plan Plan of Care: Therapeutic EX, Neuromuscular Re-Educ, Therapeutic Activity, Self- Care/Home Management Frequency of Treatment: 1-2 X day, as tolerated Duration of Treatment: 2 Weeks Anticipated Discharge Destination: Home Has the Physician been added for Co-signature?: Yes
[2017-10-05] MEDS ORDERED: TYLENOL PO PRN (15:27)
[2017-10-05] MEDS ORDERED: DUONEB NEB SCH (15:30)
[2017-10-05] MEDS ORDERED: VISTARIL INJ IM PRN (15:33)
[2017-10-05] MEDS ORDERED: PROAIR HFA IH PRN (15:34)
[2017-10-05] MEDS ORDERED: CATAPRES PO PRN (15:34)
[2017-10-05] MEDS ORDERED: NITROSTAT SL PRN (15:47)
[2017-10-05] MEDS ORDERED: ALBUTEROL 0.083% NEB NEB SCH (16:00)
[2017-10-05] MEDS: DUONEB NEB SCH ×2 (16:50→21:10)
[2017-10-05] MEDS: COREG PO SCH (17:49)
[2017-10-05] MEDS ORDERED: MEDROL DOSEPAK PO SCH (18:30)
[2017-10-05 20:34] VITALS: BMI 27.3
[2017-10-05] MEDS ORDERED: SOLU-MEDROL 40 MG IVP SCH (21:00)
[2017-10-05] MEDS ORDERED: LANTUS SUBCUT SCH (21:00)
[2017-10-05] MEDS ORDERED: PRAMIPEXOLE DI HCL 0.5 MG PO SCH (21:00)
[2017-10-05] MEDS: ROCEPHIN 1 GM in SODIUM CHLORIDE 50 ML IV SCH (21:03)
[2017-10-05] MEDS: MIRAPEX PO SCH (21:03)
[2017-10-05] MEDS: ZYLOPRIM PO SCH (21:03)
[2017-10-05] MEDS: K-DUR PO SCH (21:03)
[2017-10-05] MEDS: NEURONTIN PO SCH (21:03)
[2017-10-05] MEDS: LANTUS SUBCUT SCH (21:08)
[2017-10-06] MEDS: DUONEB NEB SCH ×6 (01:40→21:22)
[2017-10-06] MEDS: HUMULIN R SUBCUT PRN ×4 (02:29→21:24)
[2017-10-06] MEDS: LASIX TAB PO SCH (05:56)
[2017-10-06] MEDS: SYNTHROID PO SCH (05:56)
[2017-10-06] MEDS: SPIRIVA IH SCH (08:21)
[2017-10-06] MEDS: MEDROL DOSEPAK PO SCH ×4 (08:23→20:57)
[2017-10-06] MEDS: LANOXIN PO SCH (08:24)
[2017-10-06] MEDS: COREG PO SCH ×2 (08:24→17:30)
[2017-10-06] MEDS: ASPIRIN CHEWABLE PO SCH (08:24)
[2017-10-06] MEDS: VESICARE PO SCH (08:24)
[2017-10-06] MEDS: MIRAPEX PO SCH ×2 (08:24→20:54)
[2017-10-06] MEDS: ZESTRIL PO SCH (08:25)
[2017-10-06] MEDS: GLUCOTROL PO SCH (08:25)
[2017-10-06] MEDS: CORDARONE PO SCH (08:25)
[2017-10-06] MEDS: NEURONTIN PO SCH ×2 (08:25→20:55)
[2017-10-06] MEDS ORDERED: NON-FORMULARY MEDICATION (Solifenacin Succinate [Vesicare] 10 MG) PO SCH ×22 (09:00)
--- NOTE | 2017-10-06 09:00 | RS.PTINEVL ---
Subjective - Patient information Date of Evaluation: 10/05/17 Date of Arrival on Unit: 10/05/17 Admitted From:: In-House Transfer Usual Living Arrangement: Alone Living Arrangement Comments: Pt lives in [facility] apartments. Home Environment: Apartment, Level/No stairs Medical History: Hypertension, CVA/TIA, COPD, CHF, Arthritis Medical History Comments:: [place], defribrillator, pacemaker, Marie's palsy, gout LATEX ALLERGY?: No Surgical History Comments:: pacemaker, AAA repair, back sx, stomach sx Subjective Information/ Patient Comments:: pt confused this pm stating he is in [place], he also states "trying to see if it is muddy" pt's ex son in law reports pt much more confused today. (notified Mary Williamson RN) 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 Timber Feller/Cooking, Participated in Social Activities Outside home Current Level of Function: Partially Dependent Current Equipment Used at Home: Rolling walker, straight cane. Interventions - Objective Patient Orientation: Person Current Interventions: IV's, Oxygen, Telemetry Range of Motion - ROM Right Upper Extremity AROM: WFL's Left Upper Extremity AROM: Slight limitation (L shld flex limited due to previous injury) Right Lower Extremity AROM: WFL's Left Lower Extremity AROM: WFL's Muscle Strength - Muscle Strength Right Upper Extremity Strength: Mild Weakness (shld flex 4-/5, elbow flex/ext 4/ 5,) Left Upper Extremity Strength: Mild Weakness (shld flex 3-/5, elbow flex/ext 4/5 ,) Right Lower Extremity Strength: Mild Weakness (hip flex 4-/5, knee flex/ext 4/5 , ankle DF/PF 4/5) Left Lower Extremity Strength: Mild Weakness (hip flex 4-/5, knee flex/ext 4/5, ankle DF/PF 4/5) Sensation - Sensation Right Upper Extremity Sensation: Intact/Normal Left Upper Extremity Sensation: Intact/Normal Right Lower Extremity Sensation: Intact/Normal Left Lower Extremity Sensation: Intact/Normal Balance - Sitting Balance and Reactions Static Sitting Balance: Fair Dynamic Sitting Balance: Fair - Standing Balance and Reactions Static Standing Balance: Poor Dynamic Standing Balance: Poor - Comments Balance Assessment Comments: Due to pt decline in cognitive status balance limited, pt with poor safety awareness. pt is impulsive and difficulty following commands. Functional Mobility - Transfers Sit to Stand: Min Assist, Mod Assist, 1 person assist Stand to Sit: Min Assist, 1 person assist - Safety Awareness Safety Awareness: Poor Ambulation - Ambulation Assistive Device Used: Rolling Walker Orthotic/Prosthetic Device: No Distance: 140ft Assistance needed with Ambulation: Min Assist, Mod Assist, 1 person assist Gait Deviations: Forward posture, Short stride Ambulation Comments: pt impulsive requires multiple repeated cues to keep walker close and to correct posture. Factors Affecting Ambulation: Decreased Balance, Breathing/O2 Saturation, Weakness, Decreased Safety, Cognitive Status Treatment time - Time with patient Total treatment time: 26 Patient Education - Education Patient Education: Activity Modification, Education of Plan of Care Teaching Recipient: Patient Teaching Methods: Discussion (Discussion with patient/family re POC. Discussed with nsg change in mental status) Assessment - Assessment Problem List:: Decreased level of function, Requires training/education, Decreased safety/Risk of falls, Weakness, Cognitive status limits abilities Rehab Potential: Good Further Therapy Indicated?: Yes Short Term Goals GOAL #1: pt demonstrate independence with rolling and scooting in bed. Goal to be met by: 10/12/17 GOAL #2: pt transfer sup to/from sit independently, sit to/from stand SBA Goal to be met by: 10/12/17 GOAL #3: pt amb 150ft with AAD with no LOB with CGA with O2 Goal to be met by: 10/12/17 Usp Goals GOAL #1: pt transfer sit to/from stand independently Goal to be met by: 10/19/17 GOAL #2: pt amb with AAD with no LOB functional household distances Goal to be met by: 10/19/17 GOAL #3: pt with improved strength BLE 4 to 4+/5 and independent with HEP Goal to be met by: 10/19/17 Plan Plan of Care: Therapeutic EX, Therapeutic Activity, Self-Care/Home Management Other:: gait training Frequency of Treatment: 1-2 X day, as tolerated Duration of Treatment: 2 Weeks Anticipated Discharge Destination: Home Has the Physician been added for Co-signature?: Yes
[2017-10-06 09:52] LABS: ANION GAP 11.2; BUN/CREATININE RATIO 33.83; CALCIUM 9.3 mg/dL (8.2-10.2); CREATININE 1.33 mg/dL (0.60-1.10); POTASSIUM 4.2 mmol/L (3.5-5.1)
[2017-10-06] MEDS: ZYLOPRIM PO SCH (20:54)
[2017-10-06] MEDS: ROCEPHIN 1 GM in SODIUM CHLORIDE 50 ML IV SCH (20:54)
[2017-10-06] MEDS: K-DUR PO SCH (20:55)
[2017-10-06] MEDS: LANTUS SUBCUT SCH (21:25)
[2017-10-06] MEDS: NORCO 5-325 PO PRN (22:20)
[2017-10-07] MEDS: DUONEB NEB SCH ×5 (02:47→22:15)
[2017-10-07] MEDS: MEDROL DOSEPAK PO SCH ×4 (06:24→22:25)
[2017-10-07] MEDS: LASIX TAB PO SCH (06:25)
[2017-10-07] MEDS: SYNTHROID PO SCH (06:25)
[2017-10-07] MEDS: COREG PO SCH ×2 (08:51→17:36)
[2017-10-07] MEDS: LANOXIN PO SCH (08:51)
[2017-10-07] MEDS: ZESTRIL PO SCH (08:51)
[2017-10-07] MEDS: ASPIRIN CHEWABLE PO SCH (08:51)
[2017-10-07] MEDS: GLUCOTROL PO SCH (08:51)
[2017-10-07] MEDS: MIRAPEX PO SCH ×2 (08:52→22:24)
[2017-10-07] MEDS: SPIRIVA IH SCH (08:52)
[2017-10-07] MEDS: CORDARONE PO SCH (08:52)
[2017-10-07] MEDS: NEURONTIN PO SCH ×2 (08:52→22:25)
[2017-10-07] MEDS: VESICARE PO SCH (08:52)
[2017-10-07] MEDS: NORCO 5-325 PO PRN ×2 (14:20→23:17)
[2017-10-07] MEDS: HUMULIN R SUBCUT PRN ×2 (14:38→17:36)
[2017-10-07] MEDS: ROCEPHIN 1 GM in SODIUM CHLORIDE 50 ML IV SCH (22:20)
[2017-10-07] MEDS: LANTUS SUBCUT SCH (22:23)
[2017-10-07] MEDS: K-DUR PO SCH (22:25)
[2017-10-07] MEDS: ZYLOPRIM PO SCH (22:25)
[2017-10-08] MEDS: DUONEB NEB SCH ×4 (05:19→22:18)
[2017-10-08] MEDS: MEDROL DOSEPAK PO SCH ×4 (06:05→21:30)
[2017-10-08] MEDS: LASIX TAB PO SCH (06:05)
[2017-10-08] MEDS: SYNTHROID PO SCH (06:05)
[2017-10-08] MEDS: ASPIRIN CHEWABLE PO SCH (10:22)
[2017-10-08] MEDS: COREG PO SCH ×2 (10:23→18:30)
[2017-10-08] MEDS: GLUCOTROL PO SCH (10:23)
[2017-10-08] MEDS: LANOXIN PO SCH (10:23)
[2017-10-08] MEDS: CORDARONE PO SCH (10:23)
[2017-10-08] MEDS: MIRAPEX PO SCH ×2 (10:24→21:15)
[2017-10-08] MEDS: VESICARE PO SCH (10:25)
[2017-10-08] MEDS: NEURONTIN PO SCH ×2 (10:25→21:15)
[2017-10-08] MEDS: ZESTRIL PO SCH (10:26)
[2017-10-08] MEDS: SPIRIVA IH SCH (10:29)
[2017-10-08] MEDS: HUMULIN R SUBCUT PRN ×3 (13:31→21:13)
[2017-10-08] MEDS: SILVADENE CREAM TP PRN (14:56)
[2017-10-08] MEDS: ROCEPHIN 1 GM in SODIUM CHLORIDE 50 ML IV SCH (21:14)
[2017-10-08] MEDS: LANTUS SUBCUT SCH (21:14)
[2017-10-08] MEDS: K-DUR PO SCH (21:15)
[2017-10-08] MEDS: ZYLOPRIM PO SCH (21:15)
[2017-10-09] MEDS: DUONEB NEB SCH ×4 (05:11→21:18)
[2017-10-09] MEDS: MEDROL DOSEPAK PO SCH ×3 (05:48→22:55)
[2017-10-09] MEDS: LASIX TAB PO SCH (05:49)
[2017-10-09] MEDS: SYNTHROID PO SCH (05:49)
[2017-10-09] MEDS: HUMULIN R SUBCUT PRN ×3 (06:03→20:41)
[2017-10-09] MEDS: ASPIRIN CHEWABLE PO SCH (10:28)
[2017-10-09] MEDS: ZESTRIL PO SCH (10:29)
[2017-10-09] MEDS: COREG PO SCH ×2 (10:29→17:59)
[2017-10-09] MEDS: CORDARONE PO SCH (10:29)
[2017-10-09] MEDS: GLUCOTROL PO SCH (10:29)
[2017-10-09] MEDS: LANOXIN PO SCH (10:30)
[2017-10-09] MEDS: NEURONTIN PO SCH ×2 (10:30→22:49)
[2017-10-09] MEDS: VESICARE PO SCH (10:30)
[2017-10-09] MEDS: SPIRIVA IH SCH (10:31)
[2017-10-09] MEDS: MIRAPEX PO SCH ×2 (10:55→22:48)
[2017-10-09] MEDS: SILVADENE CREAM TP PRN (16:06)
[2017-10-09] MEDS: LANTUS SUBCUT SCH (20:40)
[2017-10-09] MEDS: K-DUR PO SCH (22:48)
[2017-10-09] MEDS: ROCEPHIN 1 GM in SODIUM CHLORIDE 50 ML IV SCH (22:49)
[2017-10-09] MEDS: ZYLOPRIM PO SCH (22:49)
[2017-10-10] MEDS: DUONEB NEB SCH ×4 (05:03→20:11)
[2017-10-10] MEDS: ASPIRIN CHEWABLE PO SCH (08:11)
[2017-10-10] MEDS: COREG PO SCH ×2 (08:11→17:11)
[2017-10-10] MEDS: CORDARONE PO SCH (08:11)
[2017-10-10] MEDS: VESICARE PO SCH (08:11)
[2017-10-10] MEDS: GLUCOTROL PO SCH (08:11)
[2017-10-10] MEDS: ZESTRIL PO SCH (08:11)
[2017-10-10] MEDS: MIRAPEX PO SCH (08:11)
[2017-10-10] MEDS: LANOXIN PO SCH (08:12)
[2017-10-10] MEDS: NEURONTIN PO SCH (08:12)
[2017-10-10] MEDS: SPIRIVA IH SCH (08:14)
[2017-10-10] MEDS: SYNTHROID PO SCH (08:20)
[2017-10-10] MEDS: LASIX TAB PO SCH (08:20)
[2017-10-10] MEDS: HUMULIN R SUBCUT PRN ×3 (08:21→17:47)
[2017-10-10] MEDS: MEDROL DOSEPAK PO SCH (08:26)
[2017-10-10 18:17] VITALS: BP 140/72; TEMP 98.6
== END 2017-10-10 20:41 | disposition home or self-care (01) | DRG 193 ==
LOC: MEDSURG B 14:59
PROVIDERS: ADMIT Family Medicine; ATTEND Family Medicine
DX: J18.1 Lobar pneumonia, unspecified organism (principal); J96.20 Acute and chronic respiratory failure, unspecified whether with hypoxia or hypercapnia; I50.43 Acute on chronic combined systolic (congestive) and diastolic (congestive) heart failure; N17.9 Acute kidney failure, unspecified; R53.83 Other fatigue; E11.65 Type 2 diabetes mellitus with hyperglycemia; N18.9 Chronic kidney disease, unspecified; R26.89 Other abnormalities of gait and mobility; J44.9 Chronic obstructive pulmonary disease, unspecified; S32.019D Unspecified fracture of first lumbar vertebra, subsequent encounter for fracture with routine healing; S22.089D Unspecified fracture of T11-T12 vertebra, subsequent encounter for fracture with routine healing; S22.32XD Fracture of one rib, left side, subsequent encounter for fracture with routine healing; S32.591D Other specified fracture of right pubis, subsequent encounter for fracture with routine healing; S29.011D Strain of muscle and tendon of front wall of thorax, subsequent encounter; F17.200 Nicotine dependence, unspecified, uncomplicated; V73 Bus occupant injured in collision with car, pick-up truck or van; Z91.19 Patient's noncompliance with other medical treatment and regimen; Z79.4 Long term (current) use of insulin; Z99.81 Dependence on supplemental oxygen; Z79.899 Other long term (current) drug therapy
CPT/HCPCS: 36415; 80048; 82962; 93005; 93010; 94640; 97802

== ENCOUNTER 2017-10-19 16:17 | Outpatient (CLI) | payer OTHER ==
[2013-04-11 01:57] VITALS: TEMP 98.6
--- NOTE | 2017-10-19 16:49 | DI ---
Exam: Three x-rays of the thoracic spine. Comparison: CT thoracic spine performed 09/26/2017. Reason for exam: Follow-up fracture. FINDINGS: The previously described T12 compression deformity is not well seen on this examination se condary to diffuse osseous demineralization. There is multilevel degenerative disease seen within th e thoracic spine. There is relative maintenance of the thoracic kyphotic curve. Impression: 1. The previously described T12 compression deformity is not well seen on this examination secondary to diffuse osseous demineralization. If clinical concern exists, CT imaging may be performed for fu rther characterization. 2. Multilevel degenerative disease
--- NOTE | 2017-10-19 16:51 | DI ---
EXAM: Radiographs, pelvis HISTORY: Right inferior pubic ramus fracture follow-up. COMPARISON: CT 10/01/2017. TECHNIQUE: Single frontal view. FINDINGS: The right inferior pubic ramus fracture noted on CT is not identified by radiograph. No s ignificant sclerosis or callus formation identified. No new fractures are seen. No hip dislocation identified. Clips present over the lower abdomen. IMPRESSION: Right inferior pubic ramus fracture is not identified by radiograph.
== END 2017-10-19 16:18 | disposition home or self-care (01) ==
LOC: RAD 16:17
PROVIDERS: ATTEND Family Medicine
DX: S32.810D Multiple fractures of pelvis with stable disruption of pelvic ring, subsequent encounter for fracture with routine healing (principal); M48.54XA Collapsed vertebra, not elsewhere classified, thoracic region, initial encounter for fracture

== ENCOUNTER 2017-11-23 13:00 | Outpatient (RCR) | payer OTHER ==
[2013-04-11 01:57] VITALS: TEMP 98.6
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
--- NOTE | 2017-11-11 10:25 | RS.OPPTDN ---
Subjective Date of Note: 11/11/17 Visit #: 2 Date of Evaluation: 11/08/17 Payer Source: MEDICARE Treatment Diagnosis: gait difficulty Current Subjective/complaints:: Patient says that he has been battling constipation increasing back pain. So, he reports taking medication and now has diarrhea. He does say he has tried HEP and heating pad at home. *Precautions: try to limit bending, lifting and twisting. Pain Assessment - Pain Description Pain Location: low back and LEs - Heat/Cryotherapy Treatment: Hot Pack (mid to low back in sitting x 15 mins) Interventions - Exercise/Activities/Manual Therapy Exercises/Activities: Patient sitting attempting LE's exercises as patient is able to claudine. He performs toe/heel raises x 20, LAQ, ball squeezes, isometric hip abd/flexion all x 10. Bilateral arm raise in chair for mid back stretch x 3. Patient asks about how and when to use ice packs at home. Discussed layering and using for pain or after therex up to 20 mins. Total minutes of Exercise: 15 Manual Therapy: Na HOME EXERCISE PROGRAM: pt given written HEP including resisted hip flex, ball squeezes, and standing lumbar extension - Charges Timed Code Treatment Minutes: 15 Total Treatment Time: 30 Procedures billed for this date of service:: hp, ex Assessment: Patient not feeling well today, but did not express until he was into our dept. Abbreviated session as a result. Jose admits to not having O2 portable tank due to not needing it and does use it mostly at night and afternoon. No signs of SOB or unsteadiness this morning. All therex performed in toleration and without c/o with exception of isometric hip flexion last few reps causing increased back pain. Patient Education: Education of diagnosis, Home Exercise Program Patient demonstrates compliance with HEP?: Yes Short Term Goals Goal #1: pt rate pain <4/10 with activity in lumbar area Goal to be met by: 11/22/17 Goal #2: pt amb in dept with cane with no loss of balance with decreased pain. Goal to be met by: 11/22/17 Progress towards Goal:: Progressing Progress towards Goal:: Progressing Cupola Tapper Goals Goal #1: pt with decreased pain <3/10 with activity Goal to be met by: 12/08/17 Goal #2: pt amb functional household distances w/o LOB with decrease pain Goal to be met by: 12/08/17 Goal #3: pt with improved strength BLE 4 to 4+/5 and independent with HEP Goal to be met by: 12/08/17 Goal #4: pt with improved dyn stand balance as noted by tinetti score of 22/28 Goal to be met by: 12/08/17 Plan PLAN OF CARE EXPIRES ON:: 12/08/17 ORDER # VISITS AND/OR THROUGH DATE: 12/08/17 PLAN: Continue to work on therex to build general strength to LEs, bilateral HS flexibility, to carry over into improved gait pattern.
--- NOTE | 2017-11-23 14:06 | RS.OPPTDN ---
Subjective Date of Note: 11/15/17 Visit #: 3 Date of Evaluation: 11/08/17 Payer Source: MEDICARE Treatment Diagnosis: gait difficulty Current Subjective/complaints:: Patient says he remembered his O2 today. He says he may be looking into an Assisted Living in [place] that is less expensive for him. C/o increased mid to low back pain. *Precautions: try to limit bending, lifting and twisting. - Heat/Cryotherapy Treatment: Hot Pack (20 mins to the mid to low back in supine) Interventions - Exercise/Activities/Manual Therapy Exercises/Activities: Patient receives passive stretching to SKTC, HS, Piriformis, and lower trunk rotation x 3 bilaterally. Patient performs pillow squeezes, isometric hip abd/flexion, SAQ 2#, QS, DF with green x 10. Alt LE lift 2# each leg x 10. Total minutes of Exercise: 22 Manual Therapy: Na HOME EXERCISE PROGRAM: pt given written HEP including resisted hip flex, ball squeezes, and standing lumbar extension - Charges Timed Code Treatment Minutes: 22 Total Treatment Time: 42 Procedures billed for this date of service:: hp, ex Assessment: Patient experiencing mod LBP primarily to the R side. He demo mod to severe HS inflexibility and weakness to the LEs. He would benefit from trying modalities to assist with decreasing back pain allowing for B LE exercises to aid in ambulation. Patient Education: Education of diagnosis, Body/Joint mechanics, Home Exercise Program, Home Safety Short Term Goals Goal #1: pt rate pain <4/10 with activity in lumbar area Goal to be met by: 11/22/17 Goal #2: pt amb in dept with cane with no loss of balance with decreased pain. Goal to be met by: 11/22/17 Progress towards Goal:: Progressing Progress towards Goal:: Progressing Mcc Goals Goal #1: pt with decreased pain <3/10 with activity Goal to be met by: 12/08/17 Goal #2: pt amb functional household distances w/o LOB with decrease pain Goal to be met by: 12/08/17 Goal #3: pt with improved strength BLE 4 to 4+/5 and independent with HEP Goal to be met by: 12/08/17 Goal #4: pt with improved dyn stand balance as noted by tinetti score of 22/28 Goal to be met by: 02/01/18 Plan PLAN OF CARE EXPIRES ON:: 12/08/17 ORDER # VISITS AND/OR THROUGH DATE: 12/08/17 PLAN: Patient to continue 2-3 times per week for modalities to low back and therex for gait claudine.
--- NOTE | 2017-11-23 14:24 | RS.OPPTDN ---
Subjective Date of Note: 11/23/17 Visit #: 4 Date of Evaluation: 11/08/17 Payer Source: MEDICARE Treatment Diagnosis: gait difficulty Current Subjective/complaints:: Patient says his back is "really hurting today. " States it is affecting his gt. Reports we will have to cut his appt short due to having an appt with Dr. Jarvis. *Precautions: try to limit bending, lifting and twisting. Pain Assessment - Pain Description Pain Location: Elevated back pain mostly the R side. Does not rate. - Treatment Modality: Electrical Stim Unattended Parameters/Method Applied: hivolt 2 large pads at the R low back and hip @ 265- 295 pk volts x 15 mins Patient Position: Left Sidelying - Heat/Cryotherapy Treatment: Hot Pack (with estim) Interventions - Exercise/Activities/Manual Therapy Exercises/Activities: Abbreviated session due to MD appt immediately after PT. Patient receives passive stretching to SKTC, HS, Piriformis, and lower trunk rotation x 3 bilaterally. Patient performs pillow squeezes, isometric hip abd/ flexion, SAQ 2#, QS, DF with green x 10. Patient was wheeled to/from our dept due to back pain and unsteady. Total minutes of Exercise: 15 Manual Therapy: Na HOME EXERCISE PROGRAM: pt given written HEP including resisted hip flex, ball squeezes, and standing lumbar extension - Charges Timed Code Treatment Minutes: 15 Total Treatment Time: 35 Procedures billed for this date of service:: hp, estim (un), ex Assessment: Patient appeared very tired this afternoon and experiencing increased R low back and R hip pain. He did find relief with estim/heat. Some general soreness with stretching (HS and lower trunk rotation). Bal remains unsteady dynamically. He uses a straight cane, but also has to roll O2 tank when amb community distances. However, he utilized the w/c today and GENERATOR OPERATOR STRAIGHT [employer]EVEL GEAR rolled O2 for him. Patient Education: Home Exercise Program, Home Safety Short Term Goals Goal #1: pt rate pain <4/10 with activity in lumbar area Goal to be met by: 11/22/17 Goal #2: pt amb in dept with cane with no loss of balance with decreased pain. Goal to be met by: 11/22/17 Progress towards Goal:: Progressing Progress towards Goal:: Progressing Generation Mechanic Helper Goals Goal #1: pt with decreased pain <3/10 with activity Goal to be met by: 12/08/17 Goal #2: pt amb functional household distances w/o LOB with decrease pain Goal to be met by: 12/08/17 Goal #3: pt with improved strength BLE 4 to 4+/5 and independent with HEP Goal to be met by: 12/08/17 Goal #4: pt with improved dyn stand balance as noted by tinetti score of 22/28 Goal to be met by: 12/08/17 Plan PLAN OF CARE EXPIRES ON:: 12/08/17 ORDER # VISITS AND/OR THROUGH DATE: 12/08/17 PLAN: Patient to continue to work towards LE strengthening aiding in amb
--- NOTE | 2017-11-29 15:51 | RS.OPPTDC ---
Date of Discharge: 11/29/17 Date of Evaluation: 11/08/17 Number of Visits: 4 Treatment Diagnosis: gait difficulty Current Level of Function: pt amb with straight cane with O2. pt limited on last visit due to increased pain. Current Complaints/Gains: pt called and reported he is moving to assisted living in [place] and would be unable to come in for his visits. Requests to be DC Pain Assessment - Pain Description Pain Location: R low back pain, and hip pain Pain Description: Sharp, Aching Functional Outcome Measure - G Codes & Severity Modifier G Codes & Modifier: mobility dc CK. mobility goal CI Source of G Code score: pt level of function Observation - Observation Posture: Forward Head, Rounded Shoulders, Increased Thoracic Kyphosis, Decreased Lumbar Lordosis Gait - Gait Pattern General Gait Pattern Observation: Crouched Gait, Decrease Stride Lngth (R), Decrease Stride Lngth (L) Interventions - Exercise/Activities/Manual Therapy Exercises/Activities: n/a Manual Therapy: Na HOME EXERCISE PROGRAM: pt given written HEP including resisted hip flex, ball squeezes, and standing lumbar extension - Charges Timed Code Treatment Minutes: n/a Total Treatment Time: n/a Procedures billed for this date of service:: n/aq Assessment Assessment: pt did not meet goals due to continued pain and weakness and pt dc early due to moving away from [facility]. Patient Education: Home Exercise Program, Education of Plan of Care Rehab Potential: Good Short Term Goals Goal #1: pt rate pain <4/10 with activity in lumbar area Goal to be met by: 11/22/17 Progress towards Goal:: Not Met Goal #2: pt amb in dept with cane with no loss of balance with decreased pain. Goal to be met by: 11/22/17 Progress towards Goal:: Not Met Progress towards Goal:: Progressing Progress towards Goal:: Progressing Access Analyst Goals Goal #1: pt with decreased pain <3/10 with activity Goal to be met by: 12/08/17 Progress towards goal: Not Met Goal #2: pt amb functional household distances w/o LOB with decrease pain Goal to be met by: 12/08/17 Progress towards goal: Not Met Goal #3: pt with improved strength BLE 4 to 4+/5 and independent with HEP Goal to be met by: 12/08/17 Progress towards goal: Not Met Goal #4: pt with improved dyn stand balance as noted by shantelle score of 22/28 Goal to be met by: 12/08/17 Progress towards goal: Not Met Plan Comments: pt moved away from town.
== END 2017-12-07 ==
PROVIDERS: ATTEND Family Medicine
DX: R26.9 Unspecified abnormalities of gait and mobility (principal)

== ENCOUNTER 2018-02-14 05:28 | Outpatient (CLI) | payer OTHER ==
[2013-04-11 01:57] VITALS: TEMP 98.6
[2018-02-14 05:59] VITALS: BMI 27.4
== END 2018-02-14 05:29 | disposition short-term general hospital (02) ==
LOC: AMBL 05:28
PROVIDERS: ATTEND Family Medicine
DX: S01.21XA Laceration without foreign body of nose, initial encounter (principal); W07.XXXA Fall from chair, initial encounter; Y92.099 Unspecified place in other non-institutional residence as the place of occurrence of the external cause

== ENCOUNTER 2018-02-14 05:43 | Emergency (ER) | payer OTHER ==
[2018-02-14 05:59] VITALS: BP 153/72; TEMP 98.3; BMI 27.4
[2018-02-14] MEDS ORDERED: TENIVAC IM ONE (05:59)
--- NOTE | 2018-02-14 06:57 | ED.PDOC ---
General Stated Complaint: he fell out of a chair and has a cut between his eyes Time Seen by Physician: 06:00 Mode of Arrival: Ambulance Information Source: Patient, EMT Exam Limitations: No limitations Nursing and Triage Documentation Reviewed and Agree: Yes Reviewed sepsis parameters & appropriate labs ordered?: Yes System Inflammatory Response Syndrome: Not Applicable <JANKIKIARA Filed: 02/14/18 06:54> <KIARA HARRIS Last Filed: 02/14/18 08:07> ED Provider: Dr. KIARA HARRIS Chief Complaint: Fall Primary Care Provider: FUNMI CISSE Sepsis Protocol: For patient's 13 years and over: Temp is 96.8 and below OR 101 and greater Pulse >90 BPM Resp >20/minute Acutely Altered Mental Status Are patient's symptoms suggestive of a new infection, such as: -Pneumonia -Skin, Soft Tissue -Endocarditis -UTI -Bone, Joint Infection -Implantable Device -Acute Abdominal Infection -Wound Infection -Meningitis -Blood Stream Catheter Infection -Unknown Skin Complaint Exam - Laceration/Head/Facial Complaint/Exam Location of Injury: Scalp, Forehead Mechanism of Injury: Laceration Onset/Duration: 3 hrs Symptoms Are: Still present Initial Severity: Mild Current Severity: Mild Aggravating: Movement Alleviating: Compression Associated Signs and Symptoms: Denies: Fever, Chills, Erythema, Numbness, Tingling Differential Diagnoses: Laceration <JANKIKIARA Filed: 02/14/18 06:54> Review of Systems - Review Of Systems Constitutional: Reports: No symptoms Eyes: Reports: No symptoms Ears, Nose, Mouth, Throat: Reports: No symptoms Respiratory: Reports: No symptoms Cardiac: Reports: No symptoms GI: Reports: No symptoms : Reports: No symptoms Musculoskeletal: Reports: No symptoms Skin: Reports: No symptoms Neurological: Reports: No symptoms Endocrine: Reports: No symptoms Hematologic/Lymphatic: Reports: No symptoms All Other Systems: Reviewed and Negative <JANKIKIARA Filed: 02/14/18 06:54> Past Medical History - Past Medical History Previously Healthy: Yes Endocrine: Reports: DM 1 (MEDS), Hypothyroid, Other (GOUT-MEDS) Cardiovascular: Reports: CAD, PR, Hypertension, CHF (MEDS), A-Fib Respiratory: Reports: COPD (MEDS) Hematological: Reports: None Gastrointestinal: Reports: None Genitourinary: Reports: Other (PROSTATISM) Neuro/Psych: Reports: TIA, Anxiety Musculoskeletal: Reports: None, Arthritis (left knee) Cancer: Reports: None Other Pertinent Past Medical History: ENLARGED PROSTATE BELLS PALSY GOUT - Surgical History General Surgical History: Reports: Pacemaker (DEFIB), Orthopedic (NECK), Back Surgery, Other (hernia repair,STOMACH SX AAA, prostate ercp scheduled for reevaluation), Unknown (stomach surgery) - Family History Family History: Reports: None - Social History Smoking Status: Current every day smoker Hx Substance Use: No Alcohol Screening: Occasionally - Immunizations Tetanus Shot up to Date: Yes <JANKIKIARA Last Filed: 02/14/18 06:54> Physical Exam - Physical Exam Appearance: Well-appearing, No pain distress, Well-nourished Pain Distress: Mild Eyes: SHLOMO, EOMI, Conjunctiva clear ENT: Ears normal, Nose normal, Oropharynx normal Neck: Supple Respiratory: Airway patent, Breath sounds clear, Breath sounds equal, Respirations nonlabored Cardiovascular: RRR, Pulses normal, No rub, No murmur GI/: Soft, Nontender, No masses, Bowel sounds normal, No Organomegaly Musculoskeletal: Normal strength, ROM intact, No edema, No calf tenderness Skin: Warm, Dry, Normal color Neurological: Sensation intact, Motor intact, Reflexes intact, Cranial nerves intact, Alert, Oriented Psychiatric: Affect appropriate, Mood appropriate <JANKIKIARA Last Filed: 02/14/18 06:54> Re-Evaluation - Re-Evaluation Time of Re-Evaluation: 08:00 Status: Unchanged Vital Signs Stable: Yes Pain Level: none Appearance: NAD Lungs: Clear Skin: Warm and Dry Neuro: Other (mild confusion) CV: RRR Additional Comments: CT Head reviewed: Comminuted fractures nasal bones,lt globe atrophic <KIARA HARRIS - Last Filed: 02/14/18 08:07> Critical Care Note - Critical Care Note Total Time (mins): 0 <KIARA SHEARER Last Filed: 02/14/18 06:54> - Course Orders, Labs, Meds: Orders Category Date Time Status Wound care [ED WOUND CARE] .ONCE EMERGENCY 02/14/18 05:59 Active Tetanus and Diphtheria Tox/Pf [Tenivac] MEDS 02/14/18 05:59 Discontinued 0.5 ml IM .ONCE ONE CT CERVICAL SPINE W/O CONTRAST Stat RADS 02/14/18 05:[address] HEAD W/O CONTRAST Stat RADS 02/14/18 05:[address] MAXILLOFACIAL W/O CONTRAST Stat RADS 02/14/18 05:58 Completed Medications Discontinued Medications Generic Name Dose Route Start Last Admin Trade Name Freq PRN Reason Stop Dose Admin Tetanus/Diphtheria Toxoids Adsorbed 0.5 ml 02/14/18 05:59 02/14/18 06:13 Tenivac IM 02/14/18 06:00 0.5 ml .ONCE ONE Administration Vital Signs: Temp Pulse Resp BP Pulse Ox 02/14/18 05:47 98.3 F 60 22 153/72 H 94 L Departure - Departure Time of Disposition: 06:56 Pt referred to PMD for follow-up: Yes IPMP verified?: No Disposition Discussed With: Patient <KIARA SHEARER - Last Filed: 02/14/18 06:54> <KIARA HARRIS - Last Filed: 02/14/18 08:07> - Departure Disposition: HOME SELF-CARE Discharge Problem: Head injury Qualifiers: Encounter type: initial encounter Qualified Code(s): S09.90XA - Unspecified injury of head, initial encounter Instructions: Head Injury (ED) Condition: Fair Additional Instructions: f/u roz pcp Allergies/Adverse Reactions: Allergies Penicillins Adverse Reaction (Intermediate, Verified 10/01/17 16:36) UNKNOWN Home Medications: Ambulatory Orders Potassium Chloride [K-Dur] 20 meq PO BEDTIME 04/11/13 Lisinopril 5 mg PO DAILY 03/09/16 Allopurinol [Zyloprim] 300 mg PO BEDTIME #1 05/23/17 Amiodarone HCl [Cordarone] 200 mg PO DAILY #1 tablet 05/23/17 Aspirin [Aspirin Chewable] 81 mg PO DAILY #1 05/23/17 Carvedilol [Coreg] 6.25 mg PO BID #1 05/23/17 Digoxin [Lanoxin] 125 mcg PO DAILY #1 05/23/17 Levothyroxine Sodium [Synthroid] 75 mcg PO QDAC #1 05/23/17 Nitroglycerin [Nitrostat] 0.4 mg SL PRN PRN #1 05/23/17 Pramipexole Di-HCl [Pramipexole ER] 0.5 mg PO BID #1 05/23/17 Solifenacin Succinate [Vesicare] 10 mg PO DAILY #1 05/23/17 Tiotropium Elfrida [Spiriva] 1 cap IH DAILY #1 05/23/17 Furosemide [Lasix Tab] 40 mg PO DAILY 08/05/17 Glipizide 5 mg PO DAILY 08/05/17 Silver Sulfadiazine [Silvadene Cream] 1 applic TP DAILY PRN 08/05/17 Gabapentin [Neurontin] 300 mg PO BID 10/05/17 Insulin Glargine,Hum.rec.anlog [Lantus] 25 units PO BEDTIME 10/05/17 Insulin Regular, Human [Humulin R] 0 - 100 unit SUBCUT TID PRN 10/05/17 Albuterol Sulfate [Proair Hfa] 2 puff IH Q4H #1 puff 10/10/17 Methylprednisolone [Medrol Dosepak] 4 mg PO 2100 tab.ds.pk 10/10/17 <KIARA SHEARER - Last Filed: 02/14/18 06:54> <KIARA HARRIS - Last Filed: 02/14/18 08:07> Additional Information: Pt reassessed. No other changes. CT reviewed; NO ACUTE INTRACRANIAL ABNORMALITIES. NASAL FRACTURES NOTED/ RELEASED AND DISCHARGE BACK TO [facility] PER DR RAMIREZ'S INSTRUCTIONS ( KIARA HARRIS)
--- NOTE | 2018-02-14 07:08 | CT ---
Exam: CT of the brain without intravenous contrast. Comparison: 09/23/2017. Reason for exam: Fall. FINDINGS: No acute intracranial hemorrhage, mass effect, ventricular dilatation, or territorial infa rction. The quadrigeminal and ambient cisterns are patent. There is no extraaxial fluid collection. No depressed calvarial fracture is seen. The paranasal sinuses and mastoid air cells appear normal ly pneumatized without discrete air fluid levels. Parenchymal changes are seen consistent with chroni c microvascular disease Impression: 1. No acute intracranial findings. 2. Parenchymal changes consistent with chronic microvascular disease and age related atrophy. Report faxed at [id number] hours on 02/14/2018.
--- NOTE | 2018-02-14 07:15 | CT ---
Exam: CT maxillofacial bones without intravenous contrast. Comparison: CT of the brain performed 02/14/2018. Reason for exam: Fall. FINDINGS: Image interpretation is somewhat limited by motion artifact. No fractures are seen of the nasal bones. There is a small air-fluid level in the frontal sinus with mild mucosal thickening in the ethmoid sinuses and polypoid mucosal thickening in the right maxillar y sinus. The left globe is atrophic with internal calcifications. No other new displaced facial frac tures are seen. The operative changes are seen after anterior cervical discectomy and fusion without evidence of hardware complication. Degenerative disease is seen throughout the imaged portion of the cervical spine. The patient is della ntulous. Temporal mandibular joint spaces appear symmetric. Zygomatic arches are intact. Impression: 1. Comminuted fractures of the nasal bones. 2. The left globe remains atrophic with internal calcifications. 3. Mucosal thickening in the frontal, ethmoid and right maxillary sinus. Imaging findings can be see n with inflammation, infection, and trauma.
--- NOTE | 2018-02-14 07:20 | CT ---
Exam: CT of the cervical spine without intravenous contrast. Comparison: 09/23/2017. Reason for exam: Fall. FINDINGS: C2-C5 without evidence of hardware complication. There is osseous bridging seen across th e cervical construct. Moderate degenerative disease is seen and ends there is straightening of the c ervical lordotic curve. Multilevel degenerative disease is seen with osteophyte formation, intervert ebral body disc space height narrowing. Findings do not appear significantly changed when compared t o CT imaging performed on 09/23/2017. Impression: 1. No acute fracture or listhesis is seen within the cervical spine to the operative changes after an terior cervical discectomy and fusion without evidence of hardware complication. 3. Moderate to severe degenerative disease is seen throughout the imaged portion of the cervical spi ne. Report faxed at [id number] hours on 02/14/2018
== END 2018-02-14 08:55 | disposition home or self-care (01) ==
LOC: ED 05:43
DX: S01.81XA Laceration without foreign body of other part of head, initial encounter (principal); S02.2XXA Fracture of nasal bones, initial encounter for closed fracture; S09.90XA Unspecified injury of head, initial encounter; H44.522 Atrophy of globe, left eye; W07.XXXA Fall from chair, initial encounter; F17.210 Nicotine dependence, cigarettes, uncomplicated
CPT/HCPCS: 90471; 90714; 99283

== ENCOUNTER 2018-03-14 17:26 | Outpatient (CLI) ==
[2013-04-11 01:57] VITALS: TEMP 98.6
== END 2018-03-14 17:27 | disposition short-term general hospital (02) ==
LOC: AMBL 17:26
PROVIDERS: ATTEND Emergency Medicine
DX: R41.0 Disorientation, unspecified (principal); E11.9 Type 2 diabetes mellitus without complications; I10 Essential (primary) hypertension; Z86.73 Personal history of transient ischemic attack (TIA), and cerebral infarction without residual deficits; W19.XXXA Unspecified fall, initial encounter

== ENCOUNTER 2018-04-01 09:26 | Emergency (ER) | payer OTHER ==
[2018-04-01 09:30] VITALS: BP 103/61; TEMP 98.5; BMI 27.1
[2018-04-01] MEDS ORDERED: TYLENOL PO STA (09:53)
--- NOTE | 2018-04-01 10:03 | ED.PDOC ---
General ED Provider: Dr. LIZZY PEPPER Chief Complaint: Finger Pain/Injury Stated Complaint: fell today injurying his left finger Time Seen by Physician: 09:40 Mode of Arrival: Walk-In Information Source: Patient Exam Limitations: No limitations Primary Care Provider: FUNMI CISSE Nursing and Triage Documentation Reviewed and Agree: Yes Reviewed sepsis parameters & appropriate labs ordered?: No System Inflammatory Response Syndrome: Not Applicable Sepsis Protocol: For patient's 13 years and over: Temp is 96.8 and below OR 101 and greater Pulse >90 BPM Resp >20/minute Acutely Altered Mental Status Are patient's symptoms suggestive of a new infection, such as: -Pneumonia -Skin, Soft Tissue -Endocarditis -UTI -Bone, Joint Infection -Implantable Device -Acute Abdominal Infection -Wound Infection -Meningitis -Blood Stream Catheter Infection -Unknown System Inflammatory Response Syndrome: Not Applicable Musculoskeletal Complaint Exam - Hand/Wrist Complaint/Exam Location of Pain: Reports: Left, Digit #4 Mechanism of Injury: Reports: Trauma Onset/Duration: this morning at 730 am Symptoms Are: Still present Onset of Pain: Reports: Immediate Initial Severity: Severe Current Severity: Moderate Location: Reports: Discrete (Left distal 4th finger ) Character: Reports: Aching, Throbbing Alleviating: Reports: Rest Aggravating: Reports: Movement Associated Signs and Symptoms: Reports: Swelling, Bruising Dominant Hand: Right Hand/Wrist Findings: Present: Swelling Tenderness: Present: Phalanx Compartment Syndrome Risk Factors: Present: Pain. Absent: Paralysis, Pallor, Pulselessness, Paresthesias Hand Picture: 1 - swelling contusion and tenderness to palpation. Differential Diagnoses: Contusion, Closed Fracture, Sprain, Strain Review of Systems - Review Of Systems Constitutional: Reports: No symptoms Respiratory: Reports: Short of air (chronic ) Cardiac: Reports: No symptoms GI: Reports: No symptoms Musculoskeletal: Reports: Joint pain Skin: Reports: Bruising Neurological: Reports: Anxiety All Other Systems: Reviewed and Negative Past Medical History - Past Medical History Previously Healthy: Yes Endocrine: Reports: DM 1 (MEDS), Hypothyroid, Other (GOUT-MEDS) Cardiovascular: Reports: CAD, VT, Hypertension, CHF (MEDS), A-Fib Respiratory: Reports: COPD (MEDS) Hematological: Reports: None Gastrointestinal: Reports: None Genitourinary: Reports: Other (PROSTATISM) Neuro/Psych: Reports: TIA, Anxiety Musculoskeletal: Reports: Arthritis (left knee) Cancer: Reports: None Other Pertinent Past Medical History: ENLARGED PROSTATE BELLS PALSY GOUT - Surgical History General Surgical History: Reports: Pacemaker (DEFIB), Orthopedic (NECK), Back Surgery, Other (hernia repair,STOMACH SX AAA, prostate ercp scheduled for reevaluation), Unknown (stomach surgery) - Family History Family History: Reports: None - Social History Smoking Status: Current every day smoker Hx Substance Use: No Alcohol Screening: Occasionally Physical Exam - Physical Exam Appearance: Well-appearing Ill-appearing: None Pain Distress: Moderate Respiratory: Wheezes Musculoskeletal: Edema (bilateral lower extremity ) Skin: Warm, Dry Neurological: Alert, Oriented Psychiatric: Anxious Critical Care Note - Critical Care Note Total Time (mins): 0 Course - Course Orders, Labs, Meds: Orders Category Date Time Status Acetaminophen [Tylenol] MEDS 04/01/18 09:53 Discontinued 1,000 mg PO ONCE STA FINGER(S), LEFT MIN 2V Stat RADS 04/01/18 09:53 Completed Medications Discontinued Medications Generic Name Dose Route Start Last Admin Trade Name Freq PRN Reason Stop Dose Admin Acetaminophen 1,000 mg 04/01/18 09:53 04/01/18 10:10 Tylenol PO 04/01/18 09:54 1,000 mg ONCE STA Administration Vital Signs: Temp Pulse Resp BP Pulse Ox 04/01/18 09:27 98.5 F 80 20 103/61 84 L Departure - Departure Time of Disposition: 10:50 Disposition: HOME SELF-CARE Discharge Problem: Finger fracture, left Qualifiers: Encounter type: initial encounter Finger: ring finger Fracture type: closed Phalanx: distal Fracture alignment: displaced Qualified Code(s): S62.635A - Displaced fracture of distal phalanx of left ring finger, initial encounter for closed fracture Instructions: Finger Fracture (ED) Condition: Stable Pt referred to PMD for follow-up: Yes IPMP verified?: No (no narcotics prescribed ) Additional Instructions: Follow up with PCP or Orthopedics in 3 days Take Tylenol as needed for pain Keep splint on. Allergies/Adverse Reactions: Allergies Penicillins Adverse Reaction (Intermediate, Verified 04/01/18 09:31) UNKNOWN Home Medications: Ambulatory Orders Potassium Chloride [K-Dur] 20 meq PO BEDTIME 04/11/13 Lisinopril 5 mg PO DAILY 03/09/16 Allopurinol [Zyloprim] 300 mg PO BEDTIME #1 05/23/17 Amiodarone HCl [Cordarone] 200 mg PO DAILY #1 tablet 05/23/17 Aspirin [Aspirin Chewable] 81 mg PO DAILY #1 05/23/17 Carvedilol [Coreg] 6.25 mg PO BID #1 05/23/17 Digoxin [Lanoxin] 125 mcg PO DAILY #1 05/23/17 Levothyroxine Sodium [Synthroid] 75 mcg PO QDAC #1 05/23/17 Nitroglycerin [Nitrostat] 0.4 mg SL PRN PRN #1 05/23/17 Pramipexole Di-HCl [Pramipexole ER] 0.5 mg PO BID #1 05/23/17 Solifenacin Succinate [Vesicare] 10 mg PO DAILY #1 05/23/17 Tiotropium [place] [Spiriva] 1 cap IH DAILY #1 05/23/17 Furosemide [Lasix Tab] 40 mg PO DAILY 08/05/17 Glipizide 5 mg PO DAILY 08/05/17 Silver Sulfadiazine [Silvadene Cream] 1 applic TP DAILY PRN 08/05/17 Gabapentin [Neurontin] 300 mg PO BID 10/05/17 Insulin Glargine,Hum.rec.anlog [Lantus] 25 units PO BEDTIME 10/05/17 Insulin Regular, Human [Humulin R] 0 - 100 unit SUBCUT TID PRN 10/05/17 Albuterol Sulfate [Proair Hfa] 2 puff IH Q4H #1 puff 10/10/17 Methylprednisolone [Medrol Dosepak] 4 mg PO 2100 tab.ds.pk 10/10/17 Disposition Discussed With: Patient, Family
--- NOTE | 2018-04-01 10:32 | DI ---
EXAM: Three views of the left fingers. History: Trauma of the left fourth digit. Findings: Mildly displaced avulsion fracture involving the dorsal base of the distal phalanx of the fourth digit. Moderate narrowing of the interphalangeal joints. Prominent dorsal osteophytes. Seen on the lateral view, there is a 4 mm posterior soft tissue calcification or foreign body over the th ird metacarpal shaft. Impression: 1. Mildly displaced avulsion fracture involving the dorsal base of the distal phalanx of the fourth d igit. 2. Moderate osteoarthritis. 3. 4 mm soft tissue calcification or foreign body over the dorsal aspect of the third metacarpal sha ft.
== END 2018-04-01 11:00 | disposition home or self-care (01) ==
LOC: ED 09:26
DX: S62.635A Displaced fracture of distal phalanx of left ring finger, initial encounter for closed fracture (principal); W19.XXXA Unspecified fall, initial encounter; F17.210 Nicotine dependence, cigarettes, uncomplicated
CPT/HCPCS: 99283

== ENCOUNTER 2018-04-20 05:26 | Outpatient (CLI) ==
[2013-04-11 01:57] VITALS: TEMP 98.6
== END 2018-04-20 05:45 | disposition short-term general hospital (02) ==
LOC: AMBL 05:26
PROVIDERS: ATTEND Family Medicine
DX: H54.3 Unqualified visual loss, both eyes (principal); I47.1 Supraventricular tachycardia; R09.89 Other specified symptoms and signs involving the circulatory and respiratory systems; J44.9 Chronic obstructive pulmonary disease, unspecified; Z95.0 Presence of cardiac pacemaker

== ENCOUNTER 2018-05-01 10:28 | Emergency (ER) ==
[2018-05-01] MEDS ORDERED: SODIUM CHLORIDE 1,000 ML IV STA (10:36)
--- NOTE | 2018-05-01 10:43 | ED.PDOC ---
General ED Provider: Dr. LIZZY PEPPER Chief Complaint: Fall Stated Complaint: Patient is a resident of the [facility] who is brought by ambulance with multple falls today. He has been able to get up on his own but the last fall he was not able to. He had his blood glucose checked and it was 57. Given Dextrose and feels better. Rechecked and is noted to be 44 after dextrose from EMS. Time Seen by Physician: 10:39 Mode of Arrival: Stretcher Information Source: Patient, Assisted Living Primary Care Provider: FUNMI JARVIS Nursing and Triage Documentation Reviewed and Agree: Yes Does patient meet sepsis criteria?: No System Inflammatory Response Syndrome: Not Applicable Sepsis Protocol: For patient's 13 years and over: Temp is 96.8 and below OR 101 and greater Pulse >90 BPM Resp >20/minute Acutely Altered Mental Status Are patient's symptoms suggestive of a new infection, such as: -Pneumonia -Skin, Soft Tissue -Endocarditis -UTI -Bone, Joint Infection -Implantable Device -Acute Abdominal Infection -Wound Infection -Meningitis -Blood Stream Catheter Infection -Unknown Review of Systems - Review Of Systems Constitutional: Reports: Weakness (loss of balance ) Eyes: Reports: No symptoms Ears, Nose, Mouth, Throat: Reports: No symptoms Respiratory: Reports: No symptoms Cardiac: Reports: No symptoms GI: Reports: No symptoms : Reports: No symptoms Musculoskeletal: Reports: No symptoms Skin: Reports: Bruising (right frontal area. ) Neurological: Reports: No symptoms Endocrine: Reports: No symptoms All Other Systems: Reviewed and Negative Past Medical History - Past Medical History Previously Healthy: Yes Endocrine: Reports: DM 1 (MEDS), Hypothyroid, Other (GOUT-MEDS) Cardiovascular: Reports: CAD, VT, Hypertension, CHF (MEDS), A-Fib Respiratory: Reports: COPD (MEDS) Hematological: Reports: None Gastrointestinal: Reports: None Genitourinary: Reports: Other (PROSTATISM) Neuro/Psych: Reports: TIA, Anxiety Musculoskeletal: Reports: Arthritis (left knee) Cancer: Reports: None Other Pertinent Past Medical History: ENLARGED PROSTATE BELLS PALSY GOUT - Surgical History General Surgical History: Reports: Pacemaker (DEFIB), Orthopedic (NECK), Back Surgery, Other (hernia repair,STOMACH SX AAA, prostate ercp scheduled for reevaluation), Unknown (stomach surgery) - Family History Family History: Reports: None - Social History Smoking Status: Current every day smoker Hx Substance Use: No Alcohol Screening: None Physical Exam - Physical Exam Appearance: Ill-appearing Ill-appearing: Mild Pain Distress: None Eyes: SHLOMO, EOMI, Conjunctiva clear Neck: Supple Respiratory: Airway patent, Breath sounds clear, Breath sounds equal, Respirations nonlabored Cardiovascular: RRR, Pulses normal, No rub, No murmur GI/: Soft, Nontender, No masses, Bowel sounds normal, No Organomegaly Musculoskeletal: Normal strength, ROM intact, No edema, No calf tenderness Skin: Warm, Dry, Normal color Neurological: Sensation intact, Motor intact (power 5/5 bilaterally Upper and lower extremities.), Alert, Oriented Psychiatric: Affect appropriate, Mood appropriate Interpretation - Radiology Interpretation Radiology Interpretation By: Radiologist Radiology Results: Negative Exam Interpreted: CT Scan (head and C spine ) - EKG Interpretation Time of EKG #1: 10:44 Rhythm: Other (Electronic Atrial Paced) ST Segment: Other Interpretation: Paced, left BBB Critical Care Note - Critical Care Note Total Time (mins): 35 Comments: Discussed with Dr Jarvis who states that this is a care issue. He cannot care for self at the Assisted living and would like him to go back to the senior living. Patient however refused Course - Course Hematology/Chemistry: 05/01/18 11:02 05/01/18 11:02 Orders, Labs, Meds: Lab Review 05/01/18 05/01/18 11:02 11:02 WBC 10.96 H RBC 4.51 L Hgb 13.1 L Hct 42.2 MCV 93.6 MCH 29.0 MCHC 31.0 L RDW Coeff of Christine 14.6 Plt Count 244 Immature Gran % (Auto) 0.5 Neut % (Auto) 78.6 Lymph % (Auto) 11.9 [place] % (Auto) 7.1 Eos % (Auto) 1.4 Baso % (Auto) 0.5 Immature Gran # (Auto) 0.1 Neut # (Auto) 8.6 H Lymph # (Auto) 1.3 [place] # (Auto) 0.8 Eos # (Auto) 0.2 Baso # (Auto) 0.1 Sodium 142 Potassium 3.7 Chloride 97 L Carbon Dioxide 38 H Anion Gap 10.7 BUN 16 Creatinine 1.11 H Estimated GFR (MDRD) 64.00 BUN/Creatinine Ratio 14.41 Glucose 89 Calcium 8.8 Total Bilirubin 0.8 AST 24 ALT 15 Alkaline Phosphatase 91 Total Creatine Kinase 450 CK-MB (CK-2) 7.0 H* CK-MB (CK-2) % 1.47222 Troponin I 0.0900 Total Protein 6.8 Albumin 3.5 Globulin 3.3 Albumin/Globulin Ratio 1.06 Orders Category Date Time Status EKG-(ED ONLY) Stat CARDIO 05/01/18 10:36 Completed ACCUCHECK (ED) [ED ACCUCHECK ASSESSMENT] .ONCE EMERGENCY 05/01/18 11:21 Active ACCUCHECK (ED) [ED ACCUCHECK ASSESSMENT] .ONCE EMERGENCY 05/01/18 11:21 Active ED IV/MEDIPORT/POWERPORT .ONCE EMERGENCY 05/01/18 10:37 Active Orthostatic [ED ORTHOSTATIC VITAL SIGNS] .ONCE EMERGENCY 05/01/18 11:52 Active CBC W/ AUTO DIFF Stat LAB 05/01/18 11:02 Completed COMPREHENSIVE METABOLIC PANEL Stat LAB 05/01/18 11:02 Completed CREATINE KINASE Stat LAB 05/01/18 11:02 Completed TROPONIN I Stat LAB 05/01/18 11:02 Completed UA [URINALYSIS C & S IF INDICATED] Stat LAB 05/01/18 11:53 Uncollected 0.9 % Sodium Chloride [Saline Flush] MEDS 05/01/18 10:37 Active 1 syr IVF PRN PRN Dextrose 5 % and 0.9 % NaCl [Dextrose 5%-Ns IV Solution MEDS 05/01/18 12:11 Active ] 1,000 ml IV 100 mls/hr Dextrose 50 % in Water [Dextrose 50%-Water Abboject] MEDS 05/01/18 10:48 Discontinued 50 ml IVP ONCE STA Sodium Chloride 0.9% [Sodium Chloride] 1,000 ml MEDS 05/01/18 10:36 Active IV 125 mls/hr CT CERVICAL SPINE W/O CONTRAST Stat RADS 05/01/18 10:[address] HEAD W/O CONTRAST Stat RADS 05/01/18 10:36 Completed Medications Generic Name Dose Route Start Last Admin Trade Name Freq PRN Reason Stop Dose Admin Sodium Chloride 1,000 mls @ 125 mls/hr 05/01/18 10:36 05/01/18 11:18 Sodium Chloride IV 05/01/18 18:35 125 mls/hr .Q8H STA Administration Dextrose/Sodium Chloride 1,000 mls @ 100 mls/hr 05/01/18 12:11 Dextrose 5%-Ns Iv Solution IV 05/01/18 22:10 .Q10H STA Sodium Chloride 1 syr 05/01/18 10:37 05/01/18 11:18 Saline Flush IVF 1 syr PRN PRN Administration To flush IV Discontinued Medications Generic Name Dose Route Start Last Admin Trade Name Freq PRN Reason Stop Dose Admin Dextrose 50 ml 05/01/18 10:48 05/01/18 11:18 Dextrose 50%-Water Abboject IVP 05/01/18 10:49 50 ml ONCE STA Administration Vital Signs: Temp Pulse Resp BP Pulse Ox 05/01/18 10:29 98.5 F 80 22 94/80 94 L Departure - Departure Time of Disposition: 13:24 Disposition: HOME SELF-CARE Discharge Problem: Falls, Hypoglycemia due to insulin Instructions: Hypoglycemia in a Person with Diabetes (ED), Fall Prevention (ED) , Fall Prevention for Older Adults (ED) Condition: Fair Pt referred to PMD for follow-up: Yes IPMP verified?: No Additional Instructions: If you do not eat the do not use insulin Follow up with PCP in 3 days Your doctor will contact you about getting outpatient physical therapy Allergies/Adverse Reactions: Allergies Penicillins Adverse Reaction (Intermediate, Verified 05/01/18 10:42) UNKNOWN Home Medications: Ambulatory Orders Potassium Chloride [K-Dur] 20 meq PO BEDTIME 04/11/13 Lisinopril 5 mg PO DAILY 03/09/16 Allopurinol [Zyloprim] 300 mg PO BEDTIME #1 05/23/17 Amiodarone HCl [Cordarone] 200 mg PO DAILY #1 tablet 05/23/17 Aspirin [Aspirin Chewable] 81 mg PO DAILY #1 05/23/17 Carvedilol [Coreg] 6.25 mg PO BID #1 05/23/17 Digoxin [Lanoxin] 125 mcg PO DAILY #1 05/23/17 Levothyroxine Sodium [Synthroid] 75 mcg PO QDAC #1 05/23/17 Nitroglycerin [Nitrostat] 0.4 mg SL PRN PRN #1 05/23/17 Pramipexole Di-HCl [Pramipexole ER] 0.5 mg PO BID #1 05/23/17 Solifenacin Succinate [Vesicare] 10 mg PO DAILY #1 05/23/17 Tiotropium [place] [Spiriva] 1 cap IH DAILY #1 05/23/17 Furosemide [Lasix Tab] 40 mg PO DAILY 08/05/17 Glipizide 5 mg PO DAILY 08/05/17 Silver Sulfadiazine [Silvadene Cream] 1 applic TP DAILY PRN 08/05/17 Gabapentin [Neurontin] 300 mg PO BID 10/05/17 Insulin Glargine,Hum.rec.anlog [Lantus] 25 units PO BEDTIME 10/05/17 Insulin Regular, Human [Humulin R] 0 - 100 unit SUBCUT TID PRN 10/05/17 Albuterol Sulfate [Proair Hfa] 2 puff IH Q4H #1 puff 10/10/17 Methylprednisolone [Medrol Dosepak] 4 mg PO 2100 tab.ds.pk 10/10/17 Disposition Discussed With: Patient
[2018-05-01 10:47] VITALS: BP 94/80; TEMP 98.5; BMI 26.9
[2018-05-01] MEDS ORDERED: DEXTROSE 50%-WATER ABBOJECT IVP STA (10:48)
--- NOTE | 2018-05-01 11:59 | CT ---
EXAM: CT head without contrast HISTORY: Multiple Falls COMPARISON: CT head 02/14/2018 and multiple priors TECHNIQUE: Serial axial images of the brain were obtained from the skull base to the vertex without IV contrast. FINDINGS: The ventricles, cisterns and sulci demonstrate mild generalized volume loss. The dillard-whi te matter junction is maintained. There is scattered low attenuation throughout the periventricular white matter.No midline shift or mass is identified. There is no abnormal intra or extra-axial fluid collection. The paranasal sinuses and mastoid air cells are clear. The osseous calvarium is intact . There is stable irregularity of the left orbital globe. IMPRESSION: 1. No acute intracranial abnormality or hemorrhage. 2. Generalized volume loss and scattered microangiopathy.
--- NOTE | 2018-05-01 12:03 | CT ---
EXAM: CT cervical spine without contrast. HISTORY: Fall with neck pain and anterior cervical fusion COMPARISON: CT cervical spine 02/14/2018 and multiple priors TECHNIQUE: Serial axial images of the cervical spine were obtained from the skull base through the l laura apices without contrast. These were viewed in multiple planes. FINDINGS: Vertebral bodies demonstrate no acute compression fracture. There is anterior fusion hard wolfe from C2 through C5 with no hardware fracture or loosening. There is multilevel vertebral body f usion at these levels. There is severe narrowing at C6-C7. There is fusion of C5 and C6. There is m oderate facet arthropathy. The odontoid process is intact. There is degenerative disease of the art iculation of the C1 ring and the odontoid process. The soft tissues are unremarkable. There is no s ignificant change from prior examination. IMPRESSION: 1. No acute compression fracture or subluxation of the cervical spine. 2. No change in anterior fusion hardware from C2-C5 with no evidence of hardware fracture or looseni ng. 3. No significant change in multilevel degenerative disease throughout the cervical spine.
[2018-05-01] MEDS ORDERED: DEXTROSE 5%-NS IV SOLUTION 1,000 ML IV STA (12:11)
== END 2018-05-01 14:25 | disposition home or self-care (01) ==
LOC: ED 10:28
DX: E10.649 Type 1 diabetes mellitus with hypoglycemia without coma (principal); Z79.4 Long term (current) use of insulin; R29.6 Repeated falls; R53.1 Weakness; I25.10 Atherosclerotic heart disease of native coronary artery without angina pectoris; I25.2 Old myocardial infarction; I10 Essential (primary) hypertension; Z86.73 Personal history of transient ischemic attack (TIA), and cerebral infarction without residual deficits; E03.9 Hypothyroidism, unspecified; Z95.0 Presence of cardiac pacemaker; W19.XXXA Unspecified fall, initial encounter; F17.210 Nicotine dependence, cigarettes, uncomplicated; Z79.899 Other long term (current) drug therapy; J44.9 Chronic obstructive pulmonary disease, unspecified; I50.9 Heart failure, unspecified; M17.12 Unilateral primary osteoarthritis, left knee; M10.9 Gout, unspecified; N40.0 Benign prostatic hyperplasia without lower urinary tract symptoms; S00.81XA Abrasion of other part of head, initial encounter; S51.011A Laceration without foreign body of right elbow, initial encounter
CPT/HCPCS: 36415; 80053; 82550; 82553; 82962; 84484; 85025; 93005; 93010; 96361; 96374; 99283

== ENCOUNTER 2018-05-11 07:16 | Emergency (ER) | payer OTHER ==
[2018-05-11 07:24] VITALS: BP 117/90; TEMP 97.2; BMI 26.5
--- NOTE | 2018-05-11 07:46 | ED.PDOC ---
General ED Provider: Dr. KIARA HARRIS Chief Complaint: Weakness Stated Complaint: Falling episodes. States has recently had multiple falls and this morning fell striking back of head and injuring his low back, lt hip and lt knee. Denied LOC. Denies N-V. Lives in assisted living residence. Is and [employer]. Blind in Lt Eye Time Seen by Physician: 07:35 Mode of Arrival: Ambulance Information Source: Patient, EMT, Assisted Living Exam Limitations: No limitations Primary Care Provider: FUNMI JARVIS Referred to ED by: Other (Assisted living) Nursing and Triage Documentation Reviewed and Agree: Yes Does patient meet sepsis criteria?: No System Inflammatory Response Syndrome: Not Applicable Sepsis Protocol: For patient's 13 years and over: Temp is 96.8 and below OR 101 and greater Pulse >90 BPM Resp >20/minute Acutely Altered Mental Status Are patient's symptoms suggestive of a new infection, such as: -Pneumonia -Skin, Soft Tissue -Endocarditis -UTI -Bone, Joint Infection -Implantable Device -Acute Abdominal Infection -Wound Infection -Meningitis -Blood Stream Catheter Infection -Unknown Musculoskeletal Complaint Exam - Hip/Pelvis Complaint/Exam Location of Pain: Reports: Left Mechanism of Injury: Reports: Trauma Onset/Duration: chronic but increased today Symptoms Are: Still present Initial Severity: Moderate Current Severity: Moderate Location: Reports: Diffuse Character: Reports: Sharp, Dull, Aching Aggravating: Reports: Movement Alleviating: Reports: Rest Able to Bear Weight: Yes (with pain ) Septic Arthritis Risk Factors: Reports: None Related Surgical History: Reports: None Tenderness: Present: Left, PSIS, Ischium Range of Motion Limited In: Present: Flexion Differential Diagnoses: Arthritis, Fracture, Strain - Knee Pain Complaint/Exam Mechanism of Injury: Reports: Trauma Onset/Duration: This morning Symptoms Are: Still present Onset of Pain: Reports: Immediate Initial Severity: Moderate Current Severity: Moderate Location: Reports: Diffuse Character: Reports: Sharp, Aching Alleviating: Reports: Rest Aggravating: Reports: Movement Associated Signs and Symptoms: Reports: Redness, Bruising Able to Bear Weight: Yes (Painful) Related History: Reports: Similar episode Septic Arthritis Risk Factors: Reports: None Gout Risk Factors: Reports: None Knee Findings: Present: Swelling, Ecchymosis Ligia Test Positive: No [place] Test Positive: No Limited Range of Motion: Present: Active, Passive Differential Diagnoses: Abrasion, Strain Review of Systems - Review Of Systems Constitutional: Reports: No symptoms Eyes: Reports: No symptoms, Other (Blindness) Ears, Nose, Mouth, Throat: Reports: No symptoms Respiratory: Reports: No symptoms Cardiac: Reports: No symptoms GI: Reports: No symptoms : Reports: No symptoms Musculoskeletal: Reports: Back pain, Joint pain Skin: Reports: No symptoms Neurological: Reports: No symptoms Endocrine: Reports: No symptoms Hematologic/Lymphatic: Reports: No symptoms All Other Systems: Reviewed and Negative Past Medical History - Past Medical History Previously Healthy: Yes Endocrine: Reports: DM 1 (MEDS), Hypothyroid, Other (GOUT-MEDS) Cardiovascular: Reports: CAD, [place], Hypertension, CHF (MEDS), A-Fib Respiratory: Reports: COPD (MEDS) Hematological: Reports: None Gastrointestinal: Reports: None Genitourinary: Reports: Other (PROSTATISM) Neuro/Psych: Reports: TIA, Anxiety Musculoskeletal: Reports: Arthritis (left knee) Cancer: Reports: None Other Pertinent Past Medical History: ENLARGED PROSTATE BELLS PALSY GOUT - Surgical History General Surgical History: Reports: Pacemaker (DEFIB), Orthopedic (NECK), Back Surgery, Other (hernia repair,STOMACH SX AAA, prostate ercp scheduled for reevaluation), Unknown (stomach surgery) - Family History Family History: Reports: None - Social History Smoking Status: Current every day smoker Hx Substance Use: No Alcohol Screening: Occasionally Physical Exam - Physical Exam Appearance: Ill-appearing Ill-appearing: Moderate Pain Distress: Moderate Eyes: SHLOMO, EOMI, Conjunctiva clear, Left pupil size (abnormal ) ENT: Ears normal, Nose normal, Oropharynx normal Respiratory: Airway patent, Breath sounds diminished Cardiovascular: RRR GI/: Soft Musculoskeletal: Normal strength, Limited ROM Skin: Warm Neurological: Sensation intact, Motor intact, Alert, Oriented Psychiatric: Affect appropriate, Mood appropriate Critical Care Note - Critical Care Note Total Time (mins): 60 Course - Course Hematology/Chemistry: 05/11/18 07:49 05/11/18 07:55 Orders, Labs, Meds: Lab Review 05/11/18 05/11/18 05/11/18 07:35 07:49 07:55 WBC 7.57 RBC 4.41 L Hgb 12.8 L Hct 41.3 L MCV 93.7 MCH 29.0 MCHC 31.0 L RDW Coeff of Christine 14.6 Plt Count 232 Immature Gran % (Auto) 0.3 Neut % (Auto) 68.0 Lymph % (Auto) 18.2 [place] % (Auto) 8.5 Eos % (Auto) 4.6 Baso % (Auto) 0.4 Immature Gran # (Auto) 0.0 Neut # (Auto) 5.2 Lymph # (Auto) 1.4 [place] # (Auto) 0.6 Eos # (Auto) 0.4 Baso # (Auto) 0.0 Sodium 142 Potassium 4.3 Chloride 100 Carbon Dioxide 32 H Anion Gap 14.3 BUN 17 Creatinine 1.17 H Estimated GFR (MDRD) 60.00 BUN/Creatinine Ratio 14.52 Glucose 84 Calcium 8.5 Magnesium 3.0 H Total Bilirubin 0.6 AST 30 ALT 13 Alkaline Phosphatase 72 Troponin I 0.0270 Total Protein 6.8 Albumin 3.2 L Globulin 3.6 Albumin/Globulin Ratio 0.89 Urine Color Urine Clarity Urine pH Ur Specific [place] Urine Protein Urine Glucose (UA) Urine Ketones Urine Blood Urine Nitrite Urine Bilirubin Urine Urobilinogen Ur Leukocyte Esterase Urine Microscopic RBC Ur Squamous Epith Cells Hyaline Casts Urine Opiates Screen Ur Oxycodone Screen Urine Methadone Screen Ur Propoxyphene Screen Ur Barbiturates Screen U Tricyclic Antidepress Ur Phencyclidine Scrn Ur Amphetamine Screen U Methamphetamines Scrn U Benzodiazepines Scrn Urine Cocaine Screen U Cannabinoids Screen 05/11/18 05/11/18 11:15 11:15 WBC RBC Hgb Hct MCV MCH MCHC RDW Coeff of Christine Plt Count Immature Gran % (Auto) Neut % (Auto) Lymph % (Auto) [place] % (Auto) Eos % (Auto) Baso % (Auto) Immature Gran # (Auto) Neut # (Auto) Lymph # (Auto) [place] # (Auto) Eos # (Auto) Baso # (Auto) Sodium Potassium Chloride Carbon Dioxide Anion Gap BUN Creatinine Estimated GFR (MDRD) BUN/Creatinine Ratio Glucose Calcium Magnesium Total Bilirubin AST ALT Alkaline Phosphatase Troponin I Total Protein Albumin Globulin Albumin/Globulin Ratio Urine Color Yellow Urine Clarity Clear Urine pH 7.0 Ur Specific [place] 1.020 Urine Protein Trace Urine Glucose (UA) Negative Urine Ketones Negative Urine Blood Negative Urine Nitrite Negative Urine Bilirubin Negative Urine Urobilinogen 1.0 Ur Leukocyte Esterase Negative Urine Microscopic RBC 0-2 Ur Squamous Epith Cells 0-2 Hyaline Casts 0-2 Urine Opiates Screen Negative Ur Oxycodone Screen Negative Urine Methadone Screen Negative Ur Propoxyphene Screen Negative Ur Barbiturates Screen Negative U Tricyclic Antidepress Negative Ur Phencyclidine Scrn Negative Ur Amphetamine Screen Negative U Methamphetamines Scrn Negative U Benzodiazepines Scrn Negative Urine Cocaine Screen Negative U Cannabinoids Screen Negative Orders Category Date Time Status EKG-(ED ONLY) Stat CARDIO 05/11/18 07:50 Completed CONSULT CASE MANAGEMENT [CASE MANAGEMENT CONSULT] ONCE CARE 05/11/18 12:01 Completed CBC W/ AUTO DIFF Stat LAB 05/11/18 07:49 Completed CMP [COMPREHENSIVE METABOLIC PANEL] Stat LAB 05/11/18 07:55 Completed MAGNESIUM Stat LAB 05/11/18 07:55 Completed TROPONIN I Stat LAB 05/11/18 07:35 Completed UA [URINALYSIS C & S IF INDICATED] Stat LAB 05/11/18 11:15 Completed URINE DRUG SCREEN (RAPID FOR ED) [DRUG SCREEN, URINE, LAB 05/11/18 11:15 Completed RAPID] Stat Lidocaine HCl [Uro-Jet] MEDS 05/11/18 10:52 Discontinued 10 ml [id number] .STK-MED ONE CT CHEST W/O CONTRAST Stat RADS 05/11/18 08:[address] HEAD W/O CONTRAST Stat RADS 05/11/18 07:[address] KNEE LEFT WITHOUT CONTRAST Stat RADS 05/11/18 07:[address] LUMBAR SPINE W/O CONTRAST Stat RADS 05/11/18 07:[address] PELVIS W/O CONTRAST Stat RADS 05/11/18 07:51 Completed Vital Signs: Temp Pulse Resp BP Pulse Ox 05/11/18 07:19 97.2 F L 64 28 H 117/90 88 L Departure - Departure Time of Disposition: 13:40 (back to assisted living) Disposition: TSF OTHER Discharge Problem: Falling episodes, Knee arthropathy, Gait abnormality, COPD (chronic obstructive pulmonary disease) Instructions: Fall Prevention for Older Adults (ED) Condition: Fair Pt referred to PMD for follow-up: Yes (Dr Jarvis) IPMP verified?: No Allergies/Adverse Reactions: Allergies Penicillins Adverse Reaction (Intermediate, Verified 05/11/18 09:26) UNKNOWN Home Medications: Ambulatory Orders Potassium Chloride [K-Dur] 20 meq PO BID 04/11/13 Amiodarone HCl [Cordarone] 200 mg PO DAILY #1 tablet 05/23/17 Aspirin [Aspirin Chewable] 81 mg PO DAILY #1 05/23/17 Carvedilol [Coreg] 6.25 mg PO BID #1 05/23/17 Digoxin [Lanoxin] 125 mcg PO DAILY #1 05/23/17 Levothyroxine Sodium [Synthroid] 75 mcg PO QDAC #1 05/23/17 Nitroglycerin [Nitrostat] 0.4 mg SL PRN PRN #1 05/23/17 Solifenacin Succinate [Vesicare] 10 mg PO DAILY #1 05/23/17 Furosemide [Lasix Tab] 80 mg PO DAILY 08/05/17 Gabapentin [Neurontin] 300 mg PO TID 10/05/17 Insulin Glargine,Hum.rec.anlog [Lantus] 15 units PO BEDTIME 10/05/17 Albuterol Sulfate [Proair Hfa] 2 puff IH Q4H #1 puff 10/10/17 Megestrol Acetate [Megace] 400 mg PO DAILY 05/01/18 Acetaminophen [Pain Relief] 650 mg PO Q8H PRN 05/11/18 Albuterol Sulfate 0.083% Neb [Albuterol 0.083% Neb] 1 vial NEB RTQ6H PRN Allopurinol 300 mg PO DAILY 05/11/18 Glipizide 5 mg PO BID 05/11/18 Hydrocodone Bit/Acetaminophen [[place] 5-325] 1 each PO Q6HR PRN 05/11/18 Insulin Regular, Human [Humulin R] 8 unit SQ TIDWM 05/11/18 Lisinopril [Zestril] 5 mg PO DAILY 05/11/18 Pramipexole Di-HCl [Pramipexole Dihydrochloride] 0.5 mg PO TID 05/11/18 Silver Sulfadiazine [Silvadene Cream] 1 applic TP DAILY 05/11/18 Tiotropium [place] [Spiriva] 1 cap IH DAILY 05/11/18 Disposition Discussed With: Patient (Outpatient follow up Dr Jarvis in 1 week) Additional Comments Additional Comments: Spoke with Dr Jarvis. Discussed my concern over patients frail condition and repeated numerous falls.He concurs and advised patient prev in NH but left AMA. Now in assisted living and has been advised should go back to NH.Previously has been discussed with patient but he refuses to be readmitted to faciltiy. State "Chance 79 yrs old and do not was to go to [place]>
--- NOTE | 2018-05-11 09:10 | CT ---
EXAM: CT chest without contrast HISTORY: Dyspnea with fall and cough. COMPARISON: CT chest 10/01/2017 TECHNIQUE: Serial axial images of the chest were obtained from the lung apices to the upper abdomen without contrast. These were viewed in multiple planes. FINDINGS: The thyroid is normal. The visualized vessels are unremarkable with pulmonary artery enla rged for size. Chest wall generator pack and lead wires are unchanged in position terminating in the right atrium right ventricle. The heart is enlarged without pericardial fluid. There are calcified and partially calcified mediastinal and hilar lymph nodes. There are no pathologically enlarged axi llary lymph nodes. There is no pneumothorax or pleural effusion. There is no consolidation, nodule or mass. There is m ild ground-glass and interstitial thickening in the lungs bilaterally. No nodule or mass is identifi ed. Limited views of the soft tissues in the upper abdomen demonstrate an exophytic low attenuation lesio n of the left posterior kidney measuring 4.4 cm in diameter which is incompletely visualized. Low at tenuation lesion was previously seen at this site on CT 10/01/2017. Hounsfield units are suggestive of a cyst. There are additional exophytic lesions of the right kidney, some which demonstrate indete rminate Hounsfield units. These measure up to approximately 1.2 cm and 1.9 cm. Soft tissues are oth erwise unremarkable as visualized. There is mesh in the anterior upper abdomen consistent with prior hernia repair. The osseous structures demonstrate inferior endplate compression deformity at L1 consistent with prio r abnormality seen in 2017. There is scattered degenerative disease throughout the remaining thoracic spine with stable compression deformity at T8. IMPRESSION: 1. Findings of interstitial ground-glass and mild thickening with prominent pulmonary arteries sugge stive of pulmonary edema. Component of pulmonary arterial hypertension could also be considered. 2. Stable cardiomegaly with no pericardial fluid. 3. Scattered degenerative disease and old compression deformities at L1 and T8. 4. Exophytic bilateral renal lesions are incompletely visualized and most consistent with cyst.
--- NOTE | 2018-05-11 09:15 | CT ---
EXAM: CT of the head without contrast History: Head trauma. Comparison: Head CT 11/11/2017 Technique: Multiplanar CT images through the head were obtained without the administration of IV con trast Findings: There is motion artifact. No air-fluid levels are seen within the sinuses. No acute greta rial abnormalities identified within limitations of the motion artifact. Intracranially the ventricular and cisternal spaces are normal in size, shape and configuration for a patient of this age. No dominant mass or midline shift. No hydrocephalous. And no hemorrhage or a bnormal extraaxial fluid collections. No change in the shruken deformed left globe Impression: No acute intracranial process
--- NOTE | 2018-05-11 09:18 | CT ---
EXAM: CT Pelvis without contrast. HISTORY: Left hip pain following a fall. Initial presentation. COMPARISON: Radiograph 10/19/2017. CT 10/01/2017. TECHNIQUE: Multiple axial images of the pelvis were obtained without intravenous contrast. Images w ere reformatted in the coronal and sagittal plane. FINDINGS: Please note that evaluation of the pelvic soft tissue structures is limited due to lack of intravenous contrast. No fracture or dislocation identified. Mild osteoarthritis of the right greater than left hips noted . Lower lumbar degenerative changes are present which will be reported separately. Fat-containing left greater than right inguinal hernias are present. Clips present along the ventral abdominal wall. Atherosclerotic calcifications are present with fusiform infrarenal abdominal aorti c aneurysm measuring up to 4.2 cm transverse by 4.4 cm AP which may be slightly increased. No periao rtic hemorrhage identified. Probable bilateral renal cysts are partially imaged. IMPRESSION: 1. No fracture or dislocation. 2. Fusiform infrarenal abdominal aortic aneurysm measuring up to 4.2 x 4.4 cm which is slightly larg er than the prior study when accounting for differences in technique.
--- NOTE | 2018-05-11 09:21 | CT ---
EXAM: CT lumbar spine without contrast HISTORY: Post fall, low back pain COMPARISON: 10/01/2017 TECHNIQUE: CT lumbar spine performed without intravenous contrast. Coronal and sagittal reformatted images obtained. FINDINGS: Bones appear demineralized. Mild chronic compression fracture L1 with grossly similar los s of height. No acute fracture or subluxation. Multilevel intervertebral disc space narrowing. Multi level marginal osteophyte formation. Multilevel facet arthrosis. Mild to moderate leftward curvatur e lower thoracic and lumbar spine. Sacroiliac joints intact. Mild degenerative levels. Multilevel degenerative changes with areas of central canal and neural foraminal narrowing, similar to prior exa mination. Infrarenal abdominal aortic aneurysm measuring up to 4.4 x 4.2 cm, slightly increased. Bi lateral renal cysts. IMPRESSION: 1. No acute fracture or subluxation. 2. Mild chronic compression fracture L1 with grossly similar loss of height. 3. Chronic discogenic degenerative disease and facet arthrosis. 4. Infrarenal abdominal aortic aneurysm measuring up to 4.4 cm, slightly increased.
--- NOTE | 2018-05-11 09:25 | CT ---
EXAM: CT left knee without contrast HISTORY: Pain post fall. COMPARISON: Knee x-ray 09/02/2070 TECHNIQUE: Serial axial images of the left knee were performed without contrast. These were viewed in multiple planes. FINDINGS: There is moderate narrowing with subchondral cysts and sclerosis with osteophyte formation. Lateral compartment is minimally narrowed with moderate osteophyte formation. There is no lytic or blastic lesion. There is no displaced fracture or dislocation. The patella is normal in position w ith osteophyte formation. There is a moderate right knee effusion. Limited views of the ligamentous structures are unremarkable on this very limited evaluation. There is subcutaneous edema noted thro ughout the visualized portion of the left knee. There is a low attenuation collection extending from the gastrocnemius in the posterior fossa may represent a Mcarthur's cyst measuring 2.0 x 0.9 cm. IMPRESSION: 1. There is no fracture or dislocation of the left knee. 2. Moderate tricompartmental osteoarthritis most pronounced in the medial knee compartment. 3. Moderate knee effusion and scattered subcutaneous edema. 4. Mcarthur's cyst.
[2018-05-11] MEDS ORDERED: URO-JET MUCOUSMEMB ONE (10:52)
== END 2018-05-11 15:03 | disposition home or self-care (01) ==
LOC: ED 07:16
DX: R29.6 Repeated falls (principal); R26.9 Unspecified abnormalities of gait and mobility; M17.12 Unilateral primary osteoarthritis, left knee; S09.90XA Unspecified injury of head, initial encounter; S79.912A Unspecified injury of left hip, initial encounter; S89.92XA Unspecified injury of left lower leg, initial encounter; S39.92XA Unspecified injury of lower back, initial encounter; J44.9 Chronic obstructive pulmonary disease, unspecified; R53.1 Weakness; W19.XXXA Unspecified fall, initial encounter; E10.9 Type 1 diabetes mellitus without complications; E03.9 Hypothyroidism, unspecified; I25.2 Old myocardial infarction; I25.10 Atherosclerotic heart disease of native coronary artery without angina pectoris; I10 Essential (primary) hypertension; I50.9 Heart failure, unspecified; Z86.73 Personal history of transient ischemic attack (TIA), and cerebral infarction without residual deficits; Z95.0 Presence of cardiac pacemaker; Z79.899 Other long term (current) drug therapy
CPT/HCPCS: 36415; 80053; 80306; 81001; 83735; 84484; 85025; 93005; 93010; 99283

== ENCOUNTER 2018-07-04 14:03 | Emergency (ER) ==
[2018-07-04 14:09] VITALS: BP 125/69; TEMP 99.1; BMI 27.1
--- NOTE | 2018-07-04 16:16 | ED.PDOC ---
General ED Provider: Dr. KIARA HARRIS Chief Complaint: Laceration Stated Complaint: RT Forearm injury-fell against van door and caused injury to the back of his forearm-resulting in large skin tears involving approx 2/3 of the forearm Time Seen by Physician: 14:25 Mode of Arrival: Wheelchair Information Source: Patient, Family Exam Limitations: No limitations Primary Care Provider: FUNMI CISSE Referred to ED by: Other Nursing and Triage Documentation Reviewed and Agree: Yes Does patient meet sepsis criteria?: No System Inflammatory Response Syndrome: Not Applicable Sepsis Protocol: For patient's 13 years and over: Temp is 96.8 and below OR 101 and greater Pulse >90 BPM Resp >20/minute Acutely Altered Mental Status Are patient's symptoms suggestive of a new infection, such as: -Pneumonia -Skin, Soft Tissue -Endocarditis -UTI -Bone, Joint Infection -Implantable Device -Acute Abdominal Infection -Wound Infection -Meningitis -Blood Stream Catheter Infection -Unknown Skin Complaint Exam - Skin/Soft Tissue Complaint/Exam Symptoms Are: Still present Timing: Constant Initial Severity: Moderate Current Severity: Moderate Location: Rt Forearm dorsal aspect Character: Reports: Swelling, Painful Aggravating: Reports: Touch Alleviating: Reports: None Associated Signs and Symptoms: Reports: Fever, Drainage, Bruising, Tenderness Related History: Denies: Similar episode Related Surgical History: Reports: None Recent Exposure to Others w/Similar Symptoms: No Skin Findings: Present: Erythema, Other (skin tears superficial) Joint Tenderness Present: No Differential Diagnoses: Other (skin tear) Review of Systems - Review Of Systems Constitutional: Reports: No symptoms Eyes: Reports: No symptoms Ears, Nose, Mouth, Throat: Reports: No symptoms Respiratory: Reports: No symptoms Cardiac: Reports: No symptoms GI: Reports: No symptoms : Reports: No symptoms Musculoskeletal: Reports: No symptoms Skin: Reports: No symptoms Neurological: Reports: No symptoms Endocrine: Reports: No symptoms Hematologic/Lymphatic: Reports: No symptoms All Other Systems: Reviewed and Negative Past Medical History - Past Medical History Previously Healthy: Yes Endocrine: Reports: DM 1 (MEDS), Hypothyroid, Other (GOUT-MEDS) Cardiovascular: Reports: CAD, [place], Hypertension, CHF (MEDS), A-Fib Respiratory: Reports: COPD (MEDS) Hematological: Reports: None Gastrointestinal: Reports: None Genitourinary: Reports: Other (PROSTATISM) Neuro/Psych: Reports: TIA, Anxiety Musculoskeletal: Reports: Arthritis (left knee) Cancer: Reports: None Other Pertinent Past Medical History: ENLARGED PROSTATE BELLS PALSY GOUT - Surgical History General Surgical History: Reports: Pacemaker (DEFIB), Orthopedic (NECK), Back Surgery, Other (hernia repair,STOMACH SX AAA, prostate ercp scheduled for reevaluation), Unknown (stomach surgery) - Family History Family History: Reports: None - Social History Smoking Status: Current every day smoker Hx Substance Use: No Alcohol Screening: Occasionally Physical Exam - Physical Exam Appearance: Ill-appearing Ill-appearing: None Pain Distress: Mild Eyes: SHLOMO, EOMI, Conjunctiva clear ENT: Ears normal, Nose normal, Oropharynx normal Neck: Supple Respiratory: Airway patent, Breath sounds clear, Breath sounds equal, Respirations nonlabored Cardiovascular: RRR, Pulses normal, No rub, No murmur GI/: Soft, Nontender, No masses, Bowel sounds normal, No Organomegaly Musculoskeletal: Normal strength, ROM intact, No edema, No calf tenderness Skin: Warm, Dry Neurological: Sensation intact, Motor intact, Reflexes intact, Cranial nerves intact, Alert, Oriented Psychiatric: Affect appropriate, Mood appropriate Critical Care Note - Critical Care Note Total Time (mins): 0 Course - Course Vital Signs: Temp Pulse Resp BP Pulse Ox 07/04/18 14:04 99.1 F 61 20 125/69 88 L Departure - Departure Time of Disposition: 16:55 Disposition: TSF ICF Discharge Problem: Multiple skin tears Condition: Fair Pt referred to PMD for follow-up: Yes IPMP verified?: No Additional Instructions: Wound care as directed to nursing facility Allergies/Adverse Reactions: Allergies Penicillins Adverse Reaction (Intermediate, Verified 07/04/18 14:11) UNKNOWN Home Medications: Ambulatory Orders Potassium Chloride [K-Dur] 20 meq PO BID 04/11/13 Amiodarone HCl [Cordarone] 200 mg PO DAILY #1 tablet 05/23/17 Aspirin [Aspirin Chewable] 81 mg PO DAILY #1 05/23/17 Carvedilol [Coreg] 6.25 mg PO BID #1 05/23/17 Digoxin [Lanoxin] 125 mcg PO DAILY #1 05/23/17 Levothyroxine Sodium [Synthroid] 75 mcg PO QDAC #1 05/23/17 Nitroglycerin [Nitrostat] 0.4 mg SL PRN PRN #1 05/23/17 Solifenacin Succinate [Vesicare] 10 mg PO DAILY #1 05/23/17 Furosemide [Lasix Tab] 80 mg PO DAILY 08/05/17 Gabapentin [Neurontin] 300 mg PO TID 10/05/17 Insulin Glargine,Hum.rec.anlog [Lantus] 15 units PO BEDTIME 10/05/17 Albuterol Sulfate [Proair Hfa] 2 puff IH Q4H #1 puff 10/10/17 Megestrol Acetate [Megace] 400 mg PO DAILY 05/01/18 Acetaminophen [Pain Relief] 650 mg PO Q8H PRN 05/11/18 Albuterol Sulfate 0.083% Neb [Albuterol 0.083% Neb] 1 vial NEB RTQ6H PRN Allopurinol 300 mg PO DAILY 05/11/18 Glipizide 5 mg PO BID 05/11/18 Hydrocodone Bit/Acetaminophen [[place] 5-325] 1 each PO Q6HR PRN 05/11/18 Insulin Regular, Human [Humulin R] 8 unit SQ TIDWM 05/11/18 Lisinopril [Zestril] 5 mg PO DAILY 05/11/18 Pramipexole Di-HCl [Pramipexole Dihydrochloride] 0.5 mg PO TID 05/11/18 Silver Sulfadiazine [Silvadene Cream] 1 applic TP DAILY 05/11/18 Tiotropium [place] [Spiriva] 1 cap IH DAILY 05/11/18 Disposition Discussed With: Family, Other (Nursing facility staff)
== END 2018-07-04 16:55 | disposition home or self-care (01) ==
LOC: ED 14:03
DX: S51.811A Laceration without foreign body of right forearm, initial encounter (principal); W19.XXXA Unspecified fall, initial encounter; F17.210 Nicotine dependence, cigarettes, uncomplicated
CPT/HCPCS: 99282

== ENCOUNTER 2018-07-29 15:08 | Emergency (ER) | payer OTHER ==
[2018-07-29] MEDS: EPINEPHRINE 1:10,000 SYRINGE IV PRN ×5 (15:08→15:24)
[2018-07-29] MEDS ORDERED: SODIUM BICARBONATE 7.5% IVP STA (15:10)
[2018-07-29 15:19] VITALS: BP 0/0; TEMP 96.7; BMI 22.8
[2018-07-29] MEDS ORDERED: EPHEDRINE SULFATE IVP STA (15:30)
[2018-07-29] MEDS ORDERED: AMIDATE IVP ONE (15:36)
[2018-07-29] MEDS ORDERED: ANECTINE ONE (15:48)
[2018-07-29] MEDS ORDERED: LEVOPHED 4 MG in SODIUM CHLORIDE 246 ML IV SCH (16:00)
[2018-07-29] MEDS ORDERED: URO-JET MUCOUSMEMB STA (16:22)
[2018-07-29] MEDS ORDERED: SODIUM BICARBONATE 8.4% IVP STA (16:40)
[2018-07-29] MEDS: EPINEPHRINE 1:10,000 SYRINGE IV STA (17:12)
--- NOTE | 2018-07-29 17:35 | DI ---
Exam: Single view of the chest. Comparison: 05/11/2018. CT scan . Reason for exam: Post intubation. FINDINGS: Endotracheal tube is seen at the level of the tito. Operative changes are seen after im planted intracardiac device placement. The cardiac silhouette is prominent in size. There are patch y airspace opacities bilaterally. Impression: 1. Endotracheal tube is seen at the level of the tito. Recommend withdrawing the endotracheal tub e approximately 3.5 cm. 2. Cardiomegaly with patchy airspace opacities likely atelectasis/pneumonia with mild pulmonary kristin a. Report faxed at 1921 hours on 07/29/2018.
[2018-07-29] MEDS ORDERED: ZOFRAN 4 MG/2 ML IVP PRN (17:36)
[2018-07-29] MEDS ORDERED: DUONEB NEB PRN (17:36)
[2018-07-29] MEDS ORDERED: MORPHINE 2 MG/ML SYRINGE IVP PRN (17:36)
[2018-07-29] MEDS ORDERED: ATIVAN IVP PRN (17:41)
--- NOTE | 2018-07-29 17:43 | ED.PDOC ---
General ED Provider: Dr. LIZZY PEPPER Chief Complaint: Cardiac Arrest Stated Complaint: Brought in in cardiac arrest. Resusitated with ROCS and lost of pulse then again had ROCS then lost it again. Time Seen by Physician: 15:00 Mode of Arrival: Ambulance Information Source: EMT Exam Limitations: Clinical condition Primary Care Provider: FUNMI CISSE Nursing and Triage Documentation Reviewed and Agree: No Does patient meet sepsis criteria?: Yes If yes, has appropriate treatment been initiated?: Yes System Inflammatory Response Syndrome: Temp 96.8F or Lower Sepsis Protocol: For patient's 13 years and over: Temp is 96.8 and below OR 101 and greater Pulse >90 BPM Resp >20/minute Acutely Altered Mental Status Are patient's symptoms suggestive of a new infection, such as: -Pneumonia -Skin, Soft Tissue -Endocarditis -UTI -Bone, Joint Infection -Implantable Device -Acute Abdominal Infection -Wound Infection -Meningitis -Blood Stream Catheter Infection -Unknown Cardiac Resuscitation - Cardiac Resuscitation/Physical Exam Onset/Duration: Minutes (15) Down-time Before BLS Initiated: 20 Down-time Before ALS Initiated: 20 Airway Prehospital Findings: Reports: Patent Breathing Prehospital Findings: Reports: Bradypnea Circulation/Rhythm Prehospital Findings: Reports: Pulses absent, PEA Disability/Neurological Prehospital Findings: Reports: Unresponsive Breathing Prehospital Intervention: Reports: Intubation Circulation/Rhythm Prehospital Intervention: Reports: Chest compressions, IV/IO placed Breathing Prehospital Response: Present: Equal breath sounds Circulation/Rhythm Prehospital Response: Present: Pulses absent, PEA Total Down Time CONTACT CENTER ANALYST: 30 Airway ED Findings: Patent Breathing ED Findings: Present: Apnea Circulation/Rhythm ED Findings: Present: Pulses present Disability/Neurological ED Findings: Present: Unresponsive Circulation/Rhythm ED Intervention: Chest compressions, Epinephrine Breathing ED Response: Confirmed by auscultation Circulation/Rhythm ED Response: Present: Pulses absent Right Pupil: Fixed, Dilated Review Of Systems: Unable due to extremis EMS/Code Sheet Reviewed: Yes Patient is a DNR: No Patient Has a Living Will: Yes Resuscitation Successful: Yes (but family made him comfort measures only ) Preliminary Cause of : cardiac arrest Differential Diagnoses: Asystole, Sudden Quality Indicator For Non-Traumatic Chest Pain/Syncope: EKG Performed ( Ventricular Paced ) Past Medical History - Past Medical History Previously Healthy: Yes Endocrine: Reports: DM 1 (MEDS), Hypothyroid, Other (GOUT-MEDS) Cardiovascular: Reports: CAD, [place], Hypertension, CHF (MEDS), A-Fib Respiratory: Reports: COPD (MEDS) Hematological: Reports: None Gastrointestinal: Reports: None Genitourinary: Reports: Other (PROSTATISM) Neuro/Psych: Reports: TIA, Anxiety Musculoskeletal: Reports: Arthritis (left knee) Cancer: Reports: None Other Pertinent Past Medical History: ENLARGED PROSTATE BELLS PALSY GOUT - Surgical History General Surgical History: Reports: Pacemaker (DEFIB), Orthopedic (NECK), Back Surgery, Other (hernia repair,STOMACH SX AAA, prostate ercp scheduled for reevaluation), Unknown (stomach surgery) - Family History Family History: Reports: None - Social History Smoking Status: Current every day smoker Hx Substance Use: No Alcohol Screening: Occasionally - Immunizations Tetanus Shot up to Date: Yes Critical Care Note - Critical Care Note Total Time (mins): 165 Comments: managing code and ROCS Discussion with family and PCP Course - Course Hematology/Chemistry: 07/29/18 15:20 07/29/18 15:20 Orders, Labs, Meds: Lab Review 07/29/18 07/29/18 07/29/18 15:10 15:20 15:20 WBC 18.34 H RBC 5.26 Hgb 15.4 Hct 50.4 MCV 95.8 H MCH 29.3 MCHC 30.6 L RDW Coeff of Christine 13.9 Plt Count 216 Immature Gran % (Auto) 1.4 Neut % (Auto) 69.0 Lymph % (Auto) 25.0 [place] % (Auto) 4.0 Eos % (Auto) 0.2 Baso % (Auto) 0.4 Immature Gran # (Auto) 0.3 Neut # (Auto) 12.6 H Lymph # (Auto) 4.6 H [place] # (Auto) 0.7 Eos # (Auto) 0.0 Baso # (Auto) 0.1 D-Dimer (Manual) Puncture Site Rr O2 Saturation 87.0 L ABG pH 7.263 L* ABG pCO2 73.2 H ABG pO2 63.0 L ABG HCO3 33.1 H ABG Total CO2 35 H ABG Base Excess 6 H Arley Test + O2 Delivery Device Bag Oxygen Liter Flow 15.00 FiO2 % 100.0 Sodium 145.6 H Potassium 3.79 Chloride 101.4 Carbon Dioxide 34.6 H Anion Gap 13.39 BUN 9.6 Creatinine 1.45 H Estimated GFR (MDRD) 47.00 BUN/Creatinine Ratio 6.62 Glucose 63.1 L Calcium 8.91 Total Bilirubin 0.60 AST 237.4 H ALT 149.2 H Alkaline Phosphatase 86.8 Total Creatine Kinase 1037.3 H CK-MB (CK-2) 12.500 H* CK-MB (CK-2) % 1.2000 Troponin I 0.077 NT-Pro-B Natriuret Pep Total Protein 6.87 Albumin 3.56 Globulin 3.31 Albumin/Globulin Ratio 1.07 Urine Color Urine Clarity Urine pH Ur Specific [place] Urine Protein Urine Glucose (UA) Urine Ketones Urine Blood Urine Nitrite Urine Bilirubin Urine Urobilinogen Ur Leukocyte Esterase Urine Microscopic RBC Urine Microscopic WBC Ur Squamous Epith Cells Amorphous Sediment 07/29/18 07/29/18 07/29/18 15:20 15:20 16:35 WBC RBC Hgb Hct MCV MCH MCHC RDW Coeff of Christine Plt Count Immature Gran % (Auto) Neut % (Auto) Lymph % (Auto) [place] % (Auto) Eos % (Auto) Baso % (Auto) Immature Gran # (Auto) Neut # (Auto) Lymph # (Auto) [place] # (Auto) Eos # (Auto) Baso # (Auto) D-Dimer (Manual) 9071.19 Puncture Site O2 Saturation ABG pH ABG pCO2 ABG pO2 ABG HCO3 ABG Total CO2 ABG Base Excess Arley Test O2 Delivery Device Oxygen Liter Flow FiO2 % Sodium Potassium Chloride Carbon Dioxide Anion Gap BUN Creatinine Estimated GFR (MDRD) BUN/Creatinine Ratio Glucose Calcium Total Bilirubin AST ALT Alkaline Phosphatase Total Creatine Kinase CK-MB (CK-2) CK-MB (CK-2) % Troponin I NT-Pro-B Natriuret Pep 7330.000 H Total Protein Albumin Globulin Albumin/Globulin Ratio Urine Color Yellow Urine Clarity Cloudy Urine pH 5.5 Ur Specific [place] >=1.030 Urine Protein 2+ Urine Glucose (UA) Negative Urine Ketones Negative Urine Blood Trace-intact Urine Nitrite Negative Urine Bilirubin Negative Urine Urobilinogen 0.2 Ur Leukocyte Esterase Trace Urine Microscopic RBC 0-2 Urine Microscopic WBC 0-2 Ur Squamous Epith Cells Not present Amorphous Sediment 3+ Orders Category Date Time Status ADMIT PATIENT INPATIENT .TO [facility] (NON-MONITORED ADMISSION 07/29/18 17: 37 Active BED) ABG DRAW REQUEST Routine CARDIO 07/29/18 16:23 Completed EKG-(ED ONLY) Stat CARDIO 07/29/18 15:49 Completed SPUTUM INDUCTION Q3D CARDIO 08/01/18 06:00 Ordered SPUTUM INDUCTION Q3D CARDIO 08/04/18 06:00 Ordered VENTILATOR Routine CARDIO 07/29/18 15:50 Completed CATHETER INSERTION AND CARE Q8HR CARE 07/29/18 17:36 Active INTAKE & OUTPUT Q8HR CARE 07/29/18 17:36 Active REMINDER: Ask MD to d/c adam DAILY CARE 07/29/18 17:37 Active NOTHING BY MOUTH DIETARY 07/29/18 Breakfast Ordered ED APPLY O2 .ONCE EMERGENCY 07/29/18 15:48 Active ED SLIPCOVER CUTTER APPLIED .ONCE EMERGENCY 07/29/18 15:48 Active ED IV/MEDIPORT/POWERPORT .ONCE EMERGENCY 07/29/18 15:48 Active Jha [ED CATHETER INSERTION AND CARE] .ONCE EMERGENCY 07/29/18 16:22 Active ABG Stat LAB 07/29/18 15:10 Completed CBC W/ AUTO DIFF Stat LAB 07/29/18 15:20 Completed COMPREHENSIVE METABOLIC PANEL Stat LAB 07/29/18 15:20 Completed CREATINE KINASE Stat LAB 07/29/18 15:20 Completed D-DIMER Stat LAB 07/29/18 15:20 Completed PRO-BNP [NT-PROBNP] Stat LAB 07/29/18 15:20 Completed SPUTUM CULTURE Q3D LAB 08/01/18 06:00 Ordered SPUTUM CULTURE Q3D LAB 08/04/18 06:00 Ordered SPUTUM CULTURE Routine LAB 07/29/18 15:50 Ordered TROPONIN I Stat LAB 07/29/18 15:20 Completed URINALYSIS C & S IF INDICATED Stat LAB 07/29/18 16:35 Completed 0.9 % Sodium Chloride [Saline Flush] MEDS 07/29/18 15:48 Ordered 1 syr IVF PRN PRN 0.9 % Sodium Chloride [Sodium Chloride] 246 ml MEDS 07/29/18 16:00 Ordered Norepinephrine Bitartrate Inj [Levophed] 4 mg IV 10 mcg/min Ephedrine Sulfate Inj [Ephedrine Sulfate] MEDS 07/29/18 15:30 Discontinued 10 mg IVP ONCE STA Epinephrine [Epinephrine 1:10,000 Syringe] MEDS 07/29/18 17:07 Discontinued 1 mg IV ONCE STA Etomidate [Amidate] MEDS 07/29/18 15:36 Discontinued 20 mg IVP .STK-MED ONE Ipratropium/Albuterol Neb [Duoneb] MEDS 07/29/18 17:36 Ordered 1 vial NEB RTQ4H PRN Lidocaine HCl [Uro-Jet] MEDS 07/29/18 16:22 Discontinued 10 ml [id number] ONCE STA Lorazepam [Ativan] MEDS 07/29/18 17:41 Ordered 1 mg IVP Q4H PRN Morphine Sulfate [Morphine 2 mg/ml Syringe] MEDS 07/29/18 17:36 Ordered 2 mg IVP Q2H PRN Ondansetron HCl/Pf [Zofran 4 mg/2 ml] MEDS 07/29/18 17:36 Ordered 4 mg IVP Q6H PRN Sodium Bicarbonate [Sodium Bicarbonate 8.4%] MEDS 07/29/18 16:40 Discontinued 50 meq IVP ONCE STA Sodium Chloride 0.9% [Sodium Chloride] 1,000 ml MEDS 07/29/18 18:00 Ordered IV 150 mls/hr Succinylcholine Chloride [Anectine] MEDS 07/29/18 15:48 Discontinued 20 mg .ROUTE .STK-MED ONE RESUSCITATION STATUS Routine OTHERS 07/29/18 17:36 Ordered CHEST, 1V AP ONLY DAILY@0700 RADS 07/30/18 07:00 Ordered CHEST, 1V AP ONLY DAILY@0700 RADS 07/31/18 07:00 Ordered CHEST, 1V AP ONLY DAILY@0700 RADS 08/01/18 07:00 Ordered CHEST, 1V AP ONLY DAILY@0700 RADS 08/02/18 07:00 Ordered CHEST, 1V AP ONLY DAILY@0700 RADS 08/03/18 07:00 Ordered CHEST, 1V AP ONLY Stat RADS 07/29/18 15:49 Completed Medications Generic Name Dose Route Start Last Admin Trade Name Freq PRN Reason Stop Dose Admin Albuterol/Ipratropium 1 vial 07/29/18 17:36 Duoneb NEB RTQ4H PRN Wheezing Norepinephrine Bitartrate 4 mg 250 mls @ 37.5 mls/hr 07/29/18 16:00 / Sodium Chloride IV .Q6H40M ANA Protocol 10 MCG/MIN Sodium Chloride 1,000 mls @ 150 mls/hr 07/29/18 18:00 Sodium Chloride IV .Q6H40M ANA Lorazepam 1 mg 07/29/18 17:41 Ativan IVP Q4H PRN Agitation Morphine Sulfate 2 mg 07/29/18 17:36 Morphine 2 Mg/Ml Syringe IVP Q2H PRN Severe Pain Ondansetron HCl 4 mg 07/29/18 17:36 Zofran 4 Mg/2 Ml IVP Q6H PRN Nausea / Vomiting Sodium Chloride 1 syr 07/29/18 15:48 Saline Flush IVF PRN PRN To flush IV Discontinued Medications Generic Name Dose Route Start Last Admin Trade Name Freq PRN Reason Stop Dose Admin Ephedrine Sulfate 10 mg 07/29/18 15:30 07/29/18 17:15 Ephedrine Sulfate IVP 07/29/18 15:31 Not Given ONCE STA Epinephrine HCl 1 mg 07/29/18 17:07 07/29/18 17:12 Epinephrine 1:10,000 Syringe IV 07/29/18 17:08 1 mg ONCE STA Administration Lidocaine HCl 10 ml 07/29/18 16:22 07/29/18 17:01 Uro-Jet MUCOUSMEMB 07/29/18 16:23 10 ml ONCE STA Administration Sodium Bicarbonate 50 meq 07/29/18 16:40 07/29/18 17:00 Sodium Bicarbonate 8.4% IVP 07/29/18 16:41 50 meq ONCE STA Administration Vital Signs: Temp Pulse Resp BP Pulse Ox 07/29/18 15:44 16 07/29/18 15:10 96.7 F L 0 L 12 0/0 L 97 Departure - Departure Time of Disposition: 05:47 Disposition: Discharge Problem: Cardiac arrest Condition: Pt referred to PMD for follow-up: No IPMP verified?: No Allergies/Adverse Reactions: Allergies Penicillins Adverse Reaction (Intermediate, Verified 07/04/18 14:11) UNKNOWN Home Medications: Ambulatory Orders Potassium Chloride [K-Dur] 20 meq PO BID 04/11/13 Amiodarone HCl [Cordarone] 200 mg PO DAILY #1 tablet 05/23/17 Aspirin [Aspirin Chewable] 81 mg PO DAILY #1 05/23/17 Carvedilol [Coreg] 6.25 mg PO BID #1 05/23/17 Digoxin [Lanoxin] 125 mcg PO DAILY #1 05/23/17 Levothyroxine Sodium [Synthroid] 75 mcg PO QDAC #1 05/23/17 Nitroglycerin [Nitrostat] 0.4 mg SL PRN PRN #1 05/23/17 Solifenacin Succinate [Vesicare] 10 mg PO DAILY #1 05/23/17 Furosemide [Lasix Tab] 80 mg PO DAILY 08/05/17 Gabapentin [Neurontin] 300 mg PO TID 10/05/17 Insulin Glargine,Hum.rec.anlog [Lantus] 15 units PO BEDTIME 10/05/17 Albuterol Sulfate [Proair Hfa] 2 puff IH Q4H #1 puff 10/10/17 Megestrol Acetate [Megace] 400 mg PO DAILY 05/01/18 Acetaminophen [Pain Relief] 650 mg PO Q8H PRN 05/11/18 Albuterol Sulfate 0.083% Neb [Albuterol 0.083% Neb] 1 vial NEB RTQ6H PRN Allopurinol 300 mg PO DAILY 05/11/18 Glipizide 5 mg PO BID 05/11/18 Hydrocodone Bit/Acetaminophen [[place] 5-325] 1 each PO Q6HR PRN 05/11/18 Insulin Regular, Human [Humulin R] 8 unit SQ TIDWM 05/11/18 Lisinopril [Zestril] 5 mg PO DAILY 05/11/18 Pramipexole Di-HCl [Pramipexole Dihydrochloride] 0.5 mg PO TID 05/11/18 Silver Sulfadiazine [Silvadene Cream] 1 applic TP DAILY 05/11/18 Tiotropium [place] [Spiriva] 1 cap IH DAILY 05/11/18
[2018-07-29] MEDS ORDERED: SODIUM CHLORIDE 1,000 ML IV SCH (18:00)
[2018-07-31] MEDS: EPINEPHRINE 1:10,000 SYRINGE IV STA (09:00)
== END 2018-07-29 19:06 | disposition expired ==
LOC: ED 15:08 → MEDSURG B 17:41 → UNDOADMIN 17:41 → ED 19:06
DX: I46.9 Cardiac arrest, cause unspecified (principal); I25.2 Old myocardial infarction; I25.10 Atherosclerotic heart disease of native coronary artery without angina pectoris; I50.9 Heart failure, unspecified; J44.9 Chronic obstructive pulmonary disease, unspecified; E03.9 Hypothyroidism, unspecified; E10.9 Type 1 diabetes mellitus without complications; I10 Essential (primary) hypertension; F17.210 Nicotine dependence, cigarettes, uncomplicated; Z86.73 Personal history of transient ischemic attack (TIA), and cerebral infarction without residual deficits; Z95.0 Presence of cardiac pacemaker; Z79.899 Other long term (current) drug therapy; R06.3 Periodic breathing; I48.91 Unspecified atrial fibrillation; R40.4 Transient alteration of awareness; I49.3 Ventricular premature depolarization
CPT/HCPCS: 36415; 80053; 81001; 82550; 82553; 82803; 83880; 84484; 85025; 85379; 93005; 93010; 94002; 96374; 96375; 96376; 99291; 99292